=== PATIENT | female | born 1935 | race Caucasian/White ===

== ENCOUNTER 2016-10-18 08:30 | Inpatient (IN) | payer OTHER, MEDICARE ==
[~2016-10-18] VITALS: Ht 160 cm; Wt 69.4 kg
[~2016-10-18 08:30] MED LIST: ACET325T96 PO; ASPI81TA28 PO; BUME1TAB42 PO; CARB25TA12 PO; CHOL1000 PO; DIGO0.1219 PO; METO1TAB31 PO; MULT-190 PO; NTRGSL/4 UT; NYST100098 TOP; PANT40TA PO; REDCAP2 PO; WARF2TAB PO
[2016-10-18] MEDS ORDERED: FENTANYL CITRATE INJ 50 MCG/1 ML 2 ML VIAL IV STA (08:47)
[2016-10-18 09:16] LABS: BASO % 0.3 %; BASO ABS # 0.02 K/uL (0-0.2); EOS % 1.3 %; HEMATOCRIT 41.6 % (37-47); IG% 1.1 %; LYMPH % 16.4 %; LYMPH ABS # 1.23 K/uL (1.2-3.4); MEAN CELL VOLUME 94.1 fL (80-100); MEAN CORPUSCULAR HGB CONC 35.1 g/dl (32-36); MEAN PLATELET VOLUME 11.2 fL (7.4-10.4); MONO % 8.9 %; PLATELET COUNT 219 K/uL (130-400); RED BLOOD COUNT 4.42 M/uL (4.2-5.4); WHITE BLOOD COUNT 7.52 K/uL (4.8-10.8)
[2016-10-18] MEDS ORDERED: LNX125 PO (09:31)
[2016-10-18] MEDS ORDERED: NYST1POW7 (09:31)
--- NOTE | 2016-10-18 09:31 | EMERGENCY ROOM VISIT NOTE ---
ED Visit Note First contact with patient: 08:40 I have seen and examined this patient with Zamzam Rodríguez and generally agree with the treatment plan as discussed. Problem List Medical Problems: (1) Parkinson's disease Status: Chronic (2) Systemic lupus erythematosus Status: Chronic Surgical Problems: (1) History of cholecystectomy Status: Resolved Current/Historical Medications Scheduled Aspirin (Aspirin Ec), 162 MG PO DAILY Bumetanide (Bumex), 0.5 MG PO QAM Carbidopa/Levodopa (Sinemet 25MG/100MG), 2 TAB PO QID Cholecalciferol (Vitamin D3), 1,000 INTER.UNIT PO DAILY Digoxin (Digox), 0.125 MG PO QPM Metoprolol Succinate (Toprol Xl), 25 MG PO DAILY Nitroglycerin (Nitrostat), 0.4 MG UT PRN Ocuvite Preservision (Ocuvite Preservision), 1 TAB PO BID Pantoprazole (Protonix), 40 MG PO DAILY Red Yeast Rice Extract (Red Yeast Rice), 600 MG PO DAILY Warfarin Sodium (Coumadin), 2 MG PO DAILY Scheduled PRN Acetaminophen Tab (Tylenol), 650 MG PO Q4 PRN for Pain Nystatin (Mycostatin), 1 APPLN TOP BID PRN for rash Allergies Coded Allergies: Azathioprine (Verified Allergy, Unknown, gi upset, 10/18/16) gmg Furosemide (Verified Allergy, Unknown, joint pain,H/A, 10/18/16) gmg HMG-CoA-R Inhibitors (Verified Allergy, Unknown, _, 10/18/16) Ibandronic Acid (Verified Allergy, Unknown, bleeding, 10/18/16) gmg Statins (Verified Allergy, Unknown, unknown, 10/18/16) gmg Ursodiol (Verified Adverse Reaction, Unknown, emesis, 10/18/16) gmg Vital Signs Date Time Temp Pulse Resp B/P Pulse Ox O2 Delivery O2 Flow Rate FiO2 10/18/16 09:09 72 18 152/83 98 Room Air 10/18/16 08:47 36.4 80 20 175/94 95 Room Air Laboratory Results 10/18/16 09:04 Red Blood Count 4.42, Mean Corpuscular Volume 94.1, Mean Corpuscular Hemoglobin 33.0, Mean Corpuscular Hemoglobin Concent 35.1, Mean Platelet Volume 11.2, Neutrophils (%) (Auto) 72.0, Lymphocytes (%) (Auto) 16.4, Monocytes (%) (Auto) 8.9, Eosinophils (%) (Auto) 1.3, Basophils (%) (Auto) 0.3, Neutrophils # (Auto) 5.42, Lymphocytes # (Auto) 1.23, Monocytes # (Auto) 0.67, Eosinophils # (Auto) 0.10, Basophils # (Auto) 0.02 Test 10/18/16 09:04 White Blood Count 7.52 K/uL (4.8-10.8) Red Blood Count 4.42 M/uL (4.2-5.4) Hemoglobin 14.6 g/dL (12.0-16.0) Hematocrit 41.6 % (37-47) Mean Corpuscular Volume 94.1 fL (80-100) Mean Corpuscular Hemoglobin 33.0 pg (25-34) Mean Corpuscular Hemoglobin Concent 35.1 g/dl (32-36) Platelet Count 219 K/uL (130-400) Mean Platelet Volume 11.2 fL (7.4-10.4) Neutrophils (%) (Auto) 72.0 % Lymphocytes (%) (Auto) 16.4 % Monocytes (%) (Auto) 8.9 % Eosinophils (%) (Auto) 1.3 % Basophils (%) (Auto) 0.3 % Neutrophils # (Auto) 5.42 K/uL (1.4-6.5) Lymphocytes # (Auto) 1.23 K/uL (1.2-3.4) Monocytes # (Auto) 0.67 K/uL (0.11-0.59) Eosinophils # (Auto) 0.10 K/uL (0-0.5) Basophils # (Auto) 0.02 K/uL (0-0.2) RDW Standard Deviation 44.4 fL (36.4-46.3) RDW Coefficient of Variation 12.8 % (11.5-14.5) Immature Granulocyte % (Auto) 1.1 % Immature Granulocyte # (Auto) 0.08 K/uL (0.00-0.02) Medications Administered Medications (Trade) Dose Ordered Sig/Christine Route Start Time Stop Time Status Last Admin Dose Admin Fentanyl Citrate (Fentanyl Inj) 50 mcg NOW STAT IV 10/18/16 08:47 10/18/16 08:49 DC 10/18/16 09:09 50 [facility] [place] Information Referrals Sangeeta Medellin D.O. (PCP) Patient Instructions [facility]
[2016-10-18 09:35] LABS: BUN/CREATININE RATIO 19.5 (10-20); CALCIUM 9.3 mg/dl (8.5-10.1); CREATININE 0.86 mg/dl (0.60-1.20); POTASSIUM 3.7 mmol/L (3.5-5.1)
[2016-10-18 09:38] LABS: ALB/GLOB RATIO 0.8 (0.9-2)
--- NOTE | 2016-10-18 09:46 | DIAGNOSTIC IMAGING REPORT ---
CHEST ONE VIEW PORTABLE CLINICAL HISTORY: fall COMPARISON STUDY: 05/22/2016 FINDINGS: The heart is at the upper limits of normal in size. There is interstitial thickening, similar to the prior study given the differences in technique. There is no lobar consolidation. There are no pleural effusions. No pneumothorax is visualized.[ IMPRESSION: Chronic interstitial thickening. No evidence of lobar consolidation. No evidence of pneumothorax on this supine study Electronically signed by: Jose Francisco Ozuna M.D. 10/18/2016 9:45 AM Dictated Date/Time: 10/18/2016 9:43 AM
[2016-10-18 09:48] LABS: ANISOCYTOSIS PRESENT; COMPLETE YES; LARGE PLATELETS 1+
--- NOTE | 2016-10-18 09:49 | DIAGNOSTIC IMAGING REPORT ---
PELVIS 1 OR 2 VIEW ROUTINE, RIGHT FEMUR 2 VIEWS ROUTINE CLINICAL HISTORY: fall, right leg pain COMPARISON STUDY: Pelvis 07/05/2016. FINDINGS: There is a slightly comminuted intertrochanteric fracture within the right proximal femur. This demonstrates mild superior displacement. No dislocation. The visualized pelvic bones and left hip are intact. The bones are osteopenic. No fractures identified within the mid to distal right femur. IMPRESSION: Right intertrochanteric hip fracture Electronically signed by: Marcin Street M.D. 10/18/2016 9:47 AM Dictated Date/Time: 10/18/2016 9:44 AM
--- NOTE | 2016-10-18 09:49 | DIAGNOSTIC IMAGING REPORT ---
RIGHT KNEE 3 VIEWS CLINICAL HISTORY: Right knee pain status post trauma COMPARISON: 07/05/2016 DISCUSSION: The bones are osteopenic. There is chondrocalcinosis. Gastric calcifications are evident. There are degenerative changes most pronounced within the patellofemoral joint. There is fragmentation the superior patellar pole unchanged the prior study. IMPRESSION: 1. Osteopenia and degenerative change 2. No acute fractures 3. Chondrocalcinosis Electronically signed by: Jose Francisco Ozuna M.D. 10/18/2016 9:47 AM Dictated Date/Time: 10/18/2016 9:46 AM
[2016-10-18] MEDS ORDERED: CARBIDOPA/LEVODOPA 25/100MG TAB PO STA (09:58)
[2016-10-18] MEDS ORDERED: AMANTADINE HCL 100 MG CAP PO STA (09:58)
[2016-10-18 10:30] VITALS: O2SAT 98; Ht 160 cm; Wt 69.4 kg
[2016-10-18] MEDS ORDERED: MoRPHine SULFATE 4 MG/ML 1 ML CARP\\VIAL IV STA (11:09)
[2016-10-18] MEDS ORDERED: ALUMINUM/MAGNESIUM/SIMETH (MAALOX MAX) 30 ML UDC PO PRN (11:45)
[2016-10-18] MEDS ORDERED: ACETAMINOPHEN 325 MG TAB PO PRN ×2 (11:45→17:45)
[2016-10-18] MEDS ORDERED: POLYETHYLENE (MIRALAX) 17 GM PACK PO PRN (11:45)
[2016-10-18] MEDS ORDERED: ZOLPIDEM TARTRATE 5 MG TAB PO PRN (11:45)
[2016-10-18] MEDS ORDERED: MAGNESIUM HYDROXIDE SUSP 30 ML UDC PO PRN (11:45)
[2016-10-18] MEDS ORDERED: ONDANSETRON INJ 2 MG/ML 2 ML VIAL IV PRN (11:45)
[2016-10-18 11:46] LABS: PARTIAL THROMBOPLASTIN RATIO 1.3; PROTHROMBIN TIME (PATIENT) 22.5 SECONDS (9.0-12.0)
[2016-10-18 12:35] VITALS: BP 107/69; PULSE 82; TEMP 36.5
[2016-10-18] MEDS ORDERED: MoRPHine SULFATE 2 MG/ML CARP IV PRN (13:15)
[2016-10-18] MEDS ORDERED: NURSING VERBAL MED ORDER ONE (13:15)
[2016-10-18] MEDS ORDERED: PHYTONADIONE INJ 10 MG in SODIUM CHLORIDE 0.9% 50ML 50 ML IV ONE (13:45)
[2016-10-18 14:05] LABS: URINE APPEARANCE TURBID (CLEAR); URINE BILIRUBIN NEG (NEG); URINE COLOR DK YELLOW; URINE EPITHELIAL CELL AUTO >30 /lpf (0-5); URINE NITRITE NEG (NEG); URINE PH 8.5 (4.5-7.5); URINE SPECIFIC GRAVITY 1.014 (1.000-1.030); UROBILINOGEN NEG (NEG); ZZUR CULT IF INDIC CLEAN CATCH NO
[2016-10-18 14:24] LABS: MANUAL MICROSCOPIC REQUIRED? NO; REVIEW REQ? YES; SULFASALICYLIC ACID NEG (NEG)
[2016-10-18] MEDS ORDERED: HYDROCODONE/ACETAMOPHEN 5/325MG TAB PO PRN (15:15)
[2016-10-18] MEDS ORDERED: DIGOXIN 0.125 MG TAB PO SCH (16:00)
--- NOTE | 2016-10-18 16:30 | CONSULTATION REPORT ---
DATE OF CONSULTATION: 10/18/2016 REASON FOR CONSULT: Right hip fracture. HISTORY OF PRESENT ILLNESS: The patient is an 80-year-old white female who apparently today was stooping over to reach for one of her slippers where she lost her balance and fell to the floor. She fell on her right side and had immediate pain in her hip and groin. She was unable to get up and ambulate on her own and she was brought to the Emergency Room to be seen by the staff there. She denies loss of consciousness. She denies hitting her head. She had no shortness of breath, chest pain or lightheadedness prior to or after the fall. She was seen by the staff. X-rays were taken and it was found that she had an intertrochanteric hip fracture of the right hip and she was admitted under the medicine service and we have been consulted to take care of her hip fracture. PAST MEDICAL HISTORY: Hypertension, atrial fibrillation on chronic Coumadin, history of CHF, hypercholesterolemia, osteoarthritis, vitamin D deficiency, Parkinson's disease, systemic lupus. PAST SURGICAL HISTORY: Cholecystectomy. FAMILY HISTORY: As per admitting history and physical. SOCIAL HISTORY: As per admitting history and physical. MEDICATIONS: Aspirin 162 mg p.o. daily, Bumex 0.5 mg p.o. q.a.m., carbidopa/levodopa 25/100 two tabs p.o. q.i.d., vitamin D3 1000 international units p.o. daily, digoxin 0.125 mg p.o. q.p.m., metoprolol XL 25 mg p.o. daily, nitroglycerin 0.4 mg under tongue p.r.n., Ocuvite PreserVision 1 tab p.o. b.i.d., pantoprazole 40 mg p.o. daily, red yeast rice 600 mg p.o. daily and warfarin 2 mg p.o. daily, Tylenol 650 mg p.o. q. 4 p.r.n. daily and nystatin 1 application topically b.i.d. p.r.n. for rash. ALLERGIES: AZATHIOPRINE, FUROSEMIDE, HMG-COA-R INHIBITORS, IBANDRONIC ACID, STATINS, URSODIOL. REVIEW OF SYSTEMS: As per admitting history and physical. PHYSICAL EXAMINATION: GENERAL: On examination of the patient, she is lying in bed and appears to be in no acute distress. She is pleasant and cooperative. She is alert and oriented to person and place. SKIN: Warm and dry. EXTREMITIES: On examination of her right lower extremity, she has full extension of the hip at this time and has some mild swelling over the proximal thigh that is tender on palpation. No active and passive range of motion attempted at this time due to hip fracture of the right hip and over the right knee. She is moving her toes and her ankle on the right foot. She has good sensation of the right foot at this time. The right lower extremity appears somewhat shortened and externally rotated compared to the left. Left lower extremity is essentially within normal limits as far as range of motion. She is nontender on palpation of the knee, ankle, and foot at this time. A gentle pelvic rock elicits no painful response in the upper pelvis, but she does have some pain over the lateral hip with motion on the right side. Upper extremities, she is mildly tender over the right shoulder at this time but not at the elbow or wrist. Range of motion is mildly limited at this time in the right shoulder compared to the left. Left shoulder has much better range of motion with minimal discomfort. Left elbow and wrist are benign. 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 Distal pulses are equal bilaterally of the upper and lower extremities. NEUROLOGICAL: The patient is alert and oriented to person and place. Sensation is intact. DIAGNOSIS: Right intertrochanteric hip fracture. PLAN: Currently, the patient is on Coumadin and her INR is 2.0. Depending if she needs a general or spinal anesthesia will depend on the level, the INR needs to be dropped; if spinal, then less than 1.5. Cardiology has been consulted and is seeing the patient at this time. The patient will likely undergo a right trochanteric femoral nailing for this type of fracture. Once she has been cleared by medicine service and cardiology service, we will plan on taking her to the operating room to fix her right hip.
--- NOTE | 2016-10-18 16:47 | EMERGENCY ROOM VISIT NOTE ---
History First contact with patient: 08:40 Chief Complaint: FALL Stated Complaint: HIP FRACTURE History of Present Illness The patient is a 80 year old female who presents to the Emergency Room via ALS after a fall. The patient reports that she bent over to put her slippers on, but she was not using her walker and she fell, landing on her right leg. The patient does have a history of Parkinson's and has balance issues at baseline. She reports she also has a history of arthritis and lupus. She takes chronic anticoagulation for a blood clot. The patient complains of pain in the right hip radiating down past the right knee. She rates her discomfort an 8/10. She is not been able to walk since the injury. She denies any numbness or weakness. She denies hitting her head when she fell. The fall was not associated with any dizziness or lightheadedness. She denies any other injuries. Review of Systems A complete 10-point Review of Systems was discussed with the patient, with pertinent positives and negatives listed in the History of Present Illness. All remaining Review of Systems questions can be considered negative unless otherwise specified. Past Medical/Surgical History Medical Problems: (1) Hip fracture (2) hip fracture (3) Parkinson's disease (4) Systemic lupus erythematosus Surgical Problems: (1) History of cholecystectomy Family History Heart disease Social History Smoking Status: Never Smoker Alcohol Use: none Drug Use: none Housing Status: lives with family Occupation Status: retired Current/Historical Medications Scheduled Aspirin (Aspirin Ec), 162 MG PO DAILY Bumetanide (Bumex), 0.5 MG PO QAM Carbidopa/Levodopa (Sinemet 25MG/100MG), 1 TAB PO QID Digoxin (Digoxin), 0.125 MG PO DAILY Metoprolol Succinate (Toprol Xl), 25 MG PO DAILY Nitroglycerin (Nitrostat), 0.4 MG UT PRN Pantoprazole (Protonix), 40 MG PO DAILY Warfarin Sodium (Coumadin), 2 MG PO DAILY Scheduled PRN Acetaminophen Tab (Tylenol), 650 MG PO Q4 PRN for Pain Miscellaneous Medications Nystatin (Topical) (Nystatin) Allergies Coded Allergies: Azathioprine (Verified Allergy, Unknown, gi upset, 10/18/16) gmg Furosemide (Verified Allergy, Unknown, joint pain,H/A, 10/18/16) gmg HMG-CoA-R Inhibitors (Verified Allergy, Unknown, _, 10/18/16) Ibandronic Acid (Verified Allergy, Unknown, bleeding, 10/18/16) gmg Statins (Verified Allergy, Unknown, unknown, 10/18/16) gmg Ursodiol (Verified Adverse Reaction, Unknown, emesis, 10/18/16) gmg Physical Exam Vital Signs Date Time Temp Pulse Resp B/P Pulse Ox O2 Delivery O2 Flow Rate FiO2 10/18/16 11:14 90 20 133/60 98 Room Air 10/18/16 10:30 98 Room Air 10/18/16 10:16 89 19 140/96 98 Room Air 10/18/16 09:09 72 18 152/83 98 Room Air 10/18/16 08:47 36.4 80 20 175/94 95 Room Air Pain Rating (0-10): 0 Physical Exam VITALS: Vitals are noted on the nurse's note and reviewed by myself. Vital signs stable. GENERAL: This is an 80-year-old female, in no acute distress, nondiaphoretic, well-developed well-nourished. SKIN: Capillary reflex less than 2 seconds. HEENT: Normocephalic. PERRLA. EOMI. Nares patent. Mucous membranes moist. Neck is supple without nuchal rigidity. HEART: Regular rate and rhythm without murmurs gallops or rubs. LUNGS: Clear to auscultation bilaterally without wheezes, rales or rhonchi. ABDOMEN: Soft, nontender. MUSCULOSKELETAL: There is tenderness to palpation over the right hip and femur. The right lower extremity is slightly shortened and internally rotated compared to the left. Dorsalis pedis pulse is intact. NEURO: Patient was alert and oriented to person place and time. Normal sensation to light and sharp touch. Deep tendon reflexes 2+ throughout. No focal neurological deficits. Medical Decision & Procedures ER Provider Diagnostic Interpretation: PELVIS 1 OR 2 VIEW ROUTINE, RIGHT FEMUR 2 VIEWS ROUTINE FINDINGS: There is a slightly comminuted intertrochanteric fracture within the right proximal femur. This demonstrates mild superior displacement. No dislocation. The visualized pelvic bones and left hip are intact. The bones are osteopenic. No fractures identified within the mid to distal right femur. IMPRESSION: Right intertrochanteric hip fracture RIGHT KNEE 3 VIEWS DISCUSSION: The bones are osteopenic. There is chondrocalcinosis. Gastric calcifications are evident. There are degenerative changes most pronounced within the patellofemoral joint. There is fragmentation the superior patellar pole unchanged the prior study. IMPRESSION: 1. Osteopenia and degenerative change 2. No acute fractures 3. Chondrocalcinosis CHEST ONE VIEW PORTABLE FINDINGS: The heart is at the upper limits of normal in size. There is interstitial thickening, similar to the prior study given the differences in technique. There is no lobar consolidation. There are no pleural effusions. No pneumothorax is visualized.[ IMPRESSION: Chronic interstitial thickening. No evidence of lobar consolidation. No evidence of pneumothorax on this supine study Laboratory Results 10/18/16 09:04 Red Blood Count 4.42, Mean Corpuscular Volume 94.1, Mean Corpuscular Hemoglobin 33.0, Mean Corpuscular Hemoglobin Concent 35.1, Mean Platelet Volume 11.2, Neutrophils (%) (Auto) 72.0, Lymphocytes (%) (Auto) 16.4, Monocytes (%) (Auto) 8.9, Eosinophils (%) (Auto) 1.3, Basophils (%) (Auto) 0.3, Neutrophils # (Auto) 5.42, Lymphocytes # (Auto) 1.23, Monocytes # (Auto) 0.67, Eosinophils # (Auto) 0.10, Basophils # (Auto) 0.02 10/18/16 09:04 Test 10/18/16 09:04 White Blood Count 7.52 K/uL (4.8-10.8) Red Blood Count 4.42 M/uL (4.2-5.4) Hemoglobin 14.6 g/dL (12.0-16.0) Hematocrit 41.6 % (37-47) Mean Corpuscular Volume 94.1 fL (80-100) Mean Corpuscular Hemoglobin 33.0 pg (25-34) Mean Corpuscular Hemoglobin Concent 35.1 g/dl (32-36) Platelet Count 219 K/uL (130-400) Mean Platelet Volume 11.2 fL (7.4-10.4) Neutrophils (%) (Auto) 72.0 % Lymphocytes (%) (Auto) 16.4 % Monocytes (%) (Auto) 8.9 % Eosinophils (%) (Auto) 1.3 % Basophils (%) (Auto) 0.3 % Neutrophils # (Auto) 5.42 K/uL (1.4-6.5) Lymphocytes # (Auto) 1.23 K/uL (1.2-3.4) Monocytes # (Auto) 0.67 K/uL (0.11-0.59) Eosinophils # (Auto) 0.10 K/uL (0-0.5) Basophils # (Auto) 0.02 K/uL (0-0.2) RDW Standard Deviation 44.4 fL (36.4-46.3) RDW Coefficient of Variation 12.8 % (11.5-14.5) Immature Granulocyte % (Auto) 1.1 % Immature Granulocyte # (Auto) 0.08 K/uL (0.00-0.02) Large Platelets 1+ Anisocytosis PRESENT Prothrombin Time 22.5 SECONDS (9.0-12.0) Prothromb Time International Ratio 2.0 (0.9-1.1) Activated Partial Thromboplast Time 34.4 SECONDS (21.0-31.0) Partial Thromboplastin Ratio 1.3 Anion Gap 11.0 mmol/L (3-11) Est Creatinine Clear Calc Drug Dose 48.8 ml/min Estimated GFR () 73.9 Estimated GFR (Non- 63.8 BUN/Creatinine Ratio 19.5 (10-20) Calcium Level 9.3 mg/dl (8.5-10.1) Total Bilirubin 0.9 mg/dl (0.2-1) Aspartate Amino Transf (AST/SGOT) 35 U/L (15-37) Alanine Aminotransferase (ALT/SGPT) 11 U/L (12-78) Alkaline Phosphatase 132 U/L (45-117) Total Protein 7.5 gm/dl (6.4-8.2) Albumin 3.3 gm/dl (3.4-5.0) Globulin 4.2 gm/dl (2.5-4.0) Albumin/Globulin Ratio 0.8 (0.9-2) Medications Administered Medications (Trade) Dose Ordered Sig/Christine Route Start Time Stop Time Status Last Admin Dose Admin Fentanyl Citrate (Fentanyl Inj) 50 mcg NOW STAT IV 10/18/16 08:47 10/18/16 08:49 DC 10/18/16 09:09 50 MCG Carbidopa/Levodopa (Sinemet 25/ 100MG Tab) 1.5 tab NOW STAT PO 10/18/16 09:58 10/18/16 10:00 DC 10/18/16 10:16 1.5 TAB Amantadine HCl (Symmetrel Cap) 100 mg NOW STAT PO 10/18/16 09:58 10/18/16 10:00 DC 10/18/16 10:16 100 MG Morphine Sulfate (MoRPHine SULFATE INJ) 4 mg NOW STAT IV 10/18/16 11:09 10/18/16 11:11 DC 10/18/16 11:14 4 MG Medical Decision Differential diagnosis includes hip fracture, dislocation, contusion, among others. The patient was evaluated as above. Labs were drawn and IV access was obtained. Imaging studies were performed and read by radiology as above. The patient was medicated with 50 g. Fentanyl IV for pain. She had little relief and was then medicated with formula grams morphine IV. The patient was reassessed multiple times during their stay in the emergency department and remained in stable condition. The patient is an 80-year-old female who presents today complaining of right hip pain after a fall. X-rays showed a right hip fracture. Labs and preop studies were ordered. Case was discussed with Brenton Goncalves, PAC of [facility], who agreed to evaluate the patient. The case was discussed with Dr. Escobar, the [facility] hospitalist, who agreed to evaluate the patient for medical admission. The patient was also evaluated by Dr. Poe, ED attending physician, who agreed with my assessment and treatment plan. Impression Primary Impression: Closed right hip fracture Departure Information Dispostion Admitted as an inpatient Condition FAIR Referrals Sangeeta Medellin D.O. (PCP) Forms HOME CARE DOCUMENTATION FORM, IMPORTANT VISIT INFORMATION Patient Instructions [facility]
--- NOTE | 2016-10-18 17:33 | History and Physical ---
History & Physical Date & Time of Service: Oct 18, 2016 at 17:24 Chief Complaint: Hip Fracture Primary Care Physician: Sangeeta Medellin D.O. History of Present Illness Source: patient, family 80 years old female with Hx of parkinsonism uses a walker for ambulation, A fib on Coumadin, SLE, HTN and remote Hx of DVT 30 years ago (coumadin is for A fib started few years ago). she was in her regular state of health until today. she was trying to put her slippers on and had a mechanical fall. she did not hit her head, she did not have any dizziness or loss of consciousness. She uses a walker for ambulation, can walk for a block without any chest pain. Past Medical/Surgical History Medical Problems: (1) Parkinson's disease Status: Chronic (2) Systemic lupus erythematosus Status: Chronic Surgical Problems: (1) History of cholecystectomy Status: Resolved Family History Heart disease Social History Smoking Status: Never Smoker Drug Use: none Occupational Status: retired Immunizations History of Influenza Vaccine: Yes History of Tetanus Vaccine?: UTD History of Pneumococcal: Yes History of Hepatitis B Vaccine: No Multi-Drug Resistant Organisms History of MDRO: No Allergies Coded Allergies: Azathioprine (Verified Allergy, Unknown, gi upset, 10/18/16) gmg Furosemide (Verified Allergy, Unknown, joint pain,H/A, 10/18/16) gmg HMG-CoA-R Inhibitors (Verified Allergy, Unknown, _, 10/18/16) Ibandronic Acid (Verified Allergy, Unknown, bleeding, 10/18/16) gmg Statins (Verified Allergy, Unknown, unknown, 10/18/16) gmg Ursodiol (Verified Adverse Reaction, Unknown, emesis, 10/18/16) gmg Home Medications Scheduled Aspirin (Aspirin Ec), 162 MG PO DAILY Bumetanide (Bumex), 0.5 MG PO QAM Carbidopa/Levodopa (Sinemet 25MG/100MG), 1 TAB PO QID Digoxin (Digoxin), 0.125 MG PO DAILY Metoprolol Succinate (Toprol Xl), 25 MG PO DAILY Nitroglycerin (Nitrostat), 0.4 MG UT PRN Pantoprazole (Protonix), 40 MG PO DAILY Warfarin Sodium (Coumadin), 2 MG PO DAILY Scheduled PRN Acetaminophen Tab (Tylenol), 650 MG PO Q4 PRN for Pain Miscellaneous Medications Nystatin (Topical) (Nystatin) Review of Systems Constitutional: No chills, No fever Eyes: No worsening of vision ENT: No hearing loss, No unusual epistaxis Respiratory: No cough, No shortness of breath, No sputum, No wheezing Cardiovascular: No PND, No chest pain, No edema, No orthopnea Abdomen: No diarrhea, No nausea, No pain, No vomiting Musculoskeletal: No joint pain Genitourinary - Female: No dysuria, No hematuria Neurologic: No memory loss, No paralysis, No weakness Psychiatric: No depression symptoms Endocrine: No fatigue Hematologic / Lymphatic: No abnormal bleeding/bruising Integumentary: No rash Physical Exam Vital Signs Date Time Temp Pulse Resp B/P Pulse Ox O2 Delivery O2 Flow Rate FiO2 10/18/16 15:20 Room Air 10/18/16 12:35 Room Air 10/18/16 12:35 36.5 82 20 107/69 Room Air 10/18/16 12:00 90 20 133/60 98 10/18/16 11:14 90 20 133/60 98 Room Air 10/18/16 10:30 98 Room Air 10/18/16 10:16 89 19 140/96 98 Room Air 10/18/16 09:09 72 18 152/83 98 Room Air 10/18/16 08:47 36.4 80 20 175/94 95 Room Air General Appearance: WD/WN, no apparent distress Head: normocephalic, atraumatic Eyes: normal inspection, PERRL, EOMI ENT: normal ENT inspection, hearing grossly normal Neck: supple Respiratory/Chest: chest non-tender, lungs clear, normal breath sounds, no respiratory distress, no accessory muscle use Cardiovascular: no edema, no gallop, no JVD, no murmur, + irregularly irregular Abdomen/GI: normal bowel sounds, non tender, soft, no organomegaly, no pulsatile mass, normal rectal exam Back: normal inspection, + pertinent finding (Right pelvic deformity) Extremities/Musculoskelatal: normal inspection, no calf tenderness, normal capillary refill Neurologic/Psych: 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, no motor/sensory deficits, alert, normal mood/affect, normal reflexes, oriented x 3 Skin: normal color, warm/dry, no rash Diagnostics Laboratory Results Results Past 24 Hours Test 10/18/16 09:04 10/18/16 13:25 Range/Units White Blood Count 7.52 4.8-10.8 K/uL Red Blood Count 4.42 4.2-5.4 M/uL Hemoglobin 14.6 12.0-16.0 g/dL Hematocrit 41.6 37-47 % Mean Corpuscular Volume 94.1 80-100 fL Mean Corpuscular Hemoglobin 33.0 25-34 pg Mean Corpuscular Hemoglobin Concent 35.1 32-36 g/dl Platelet Count 219 130-400 K/uL Mean Platelet Volume 11.2 7.4-10.4 fL Neutrophils (%) (Auto) 72.0 % Lymphocytes (%) (Auto) 16.4 % Monocytes (%) (Auto) 8.9 % Eosinophils (%) (Auto) 1.3 % Basophils (%) (Auto) 0.3 % Neutrophils # (Auto) 5.42 1.4-6.5 K/uL Lymphocytes # (Auto) 1.23 1.2-3.4 K/uL Monocytes # (Auto) 0.67 0.11-0.59 K/uL Eosinophils # (Auto) 0.10 0-0.5 K/uL Basophils # (Auto) 0.02 0-0.2 K/uL RDW Standard Deviation 44.4 36.4-46.3 fL RDW Coefficient of Variation 12.8 11.5-14.5 % Immature Granulocyte % (Auto) 1.1 % Immature Granulocyte # (Auto) 0.08 0.00-0.02 K/uL Large Platelets 1+ Anisocytosis PRESENT Prothrombin Time 22.5 9.0-12.0 SECONDS Prothromb Time International Ratio 2.0 0.9-1.1 Activated Partial Thromboplast Time 34.4 21.0-31.0 SECONDS Partial Thromboplastin Ratio 1.3 Sodium Level 138 136-145 mmol/L Potassium Level 3.7 3.5-5.1 mmol/L Chloride Level 99 98-107 mmol/L Carbon Dioxide Level 28 21-32 mmol/L Anion Gap 11.0 3-11 mmol/L Blood Urea Nitrogen 17 7-18 mg/dl Creatinine 0.86 0.60-1.20 mg/dl Est Creatinine Clear Calc Drug Dose 48.8 ml/min Estimated GFR () 73.9 Estimated GFR (Non- 63.8 BUN/Creatinine Ratio 19.5 10-20 Random Glucose 120 70-99 mg/dl Calcium Level 9.3 8.5-10.1 mg/dl Total Bilirubin 0.9 0.2-1 mg/dl Aspartate Amino Transf (AST/SGOT) 35 15-37 U/L Alanine Aminotransferase (ALT/SGPT) 11 12-78 U/L Alkaline Phosphatase 132 45-117 U/L Total Protein 7.5 6.4-8.2 gm/dl Albumin 3.3 3.4-5.0 gm/dl Globulin 4.2 2.5-4.0 gm/dl Albumin/Globulin Ratio 0.8 0.9-2 Urine Color DK YELLOW Urine Appearance TURBID CLEAR Urine pH 8.5 4.5-7.5 Urine Specific Mck[place]on 1.014 1.000-1.030 Urine Protein NEG NEG Urine Glucose (UA) NEG NEG Urine Ketones TRACE NEG Urine Occult Blood 1+ NEG Urine Nitrite NEG NEG Urine Bilirubin NEG NEG Urine Urobilinogen NEG NEG Urine Leukocyte Esterase TRACE NEG Urine WBC (Auto) 1-5 0-5 /hpf Urine RBC (Auto) 10-30 0-4 /hpf Urine Hyaline Casts (Auto) >30 0-5 /lpf Urine Epithelial Cells (Auto) >30 0-5 /lpf Urine Bacteria (Auto) NEG NEG Urine Renal Epithelial Cells 0-5 /lpf Urine Crystals AMORPHOUS SEDIMENT NONE PRSENT Urine Pathogenic Casts 0 /lpf CXR normal Impression Assessment and Plan 80 years old lady with parkinsonism sustained a mechanical fall. Right intertrochanteric hip fracture. medically cleared for hip replacement after correction of INR Orthopedic consult is appreciated A fib on coumadin INR is 2 given 10mg of vit K IV repeat INR in am HTN continue B carey Parkinsonis continue home meds SLE continue home meds Remote Hx of DVT 30 years ago (was on coumadin for 6 months at that time as per patient) Full code Advanced Directives Existing Advance Directive: No Existing Living Will: No Existing Power of House Furnishings Supervisor: No VTE Prophylaxis VTE Risk Assessment Done? Y/N: Yes Risk Level: Moderate
[2016-10-18] MEDS ORDERED: NITROGLYCERIN 0.4 MG SL PER TAB CHARGE UT PRN (17:45)
[2016-10-18] MEDS: MoRPHine SULFATE 2 MG/ML CARP IV PRN ×2 (18:11→21:09)
[2016-10-18] MEDS: D5W AND NSS 1,000 ML IV SCH (18:25)
--- NOTE | 2016-10-18 18:31 | CARDIOLOGY CONSULTATION REPORT ---
DATE OF CONSULTATION: 10/18/2016 REASON FOR CONSULTATION: 1. Preoperative cardiac evaluation prior to undergoing fracture hip repair. 2. Chronic atrial fibrillation. 3. History of diastolic CHF. HISTORY OF PRESENT ILLNESS: Mrs. Maxwell is a very pleasant 80-year-old white female who has a history of longstanding Parkinson's disease, systemic lupus erythematosus, autoimmune cirrhosis, hypertension, moderate concentric LVH with type 2 diastolic dysfunction as well as chronic atrial fibrillation (rate controlled on Coumadin) who was admitted earlier today after a fall, which resulted in a right hip intertrochanteric fracture. Anticipate surgical repair tomorrow with [facility] team. The patient has a longstanding history of atrial fibrillation with well controlled ventricular response rate and she is maintained on chronic Coumadin anticoagulation. She does have a history of diastolic CHF dating back to October 2014 when she presented with AFib with RVR and heart failure symptoms. With controlling her heart rate, her heart failure symptoms improved dramatically. The patient has limited her activities because of Parkinson's disease. She generally ambulates back and forth in her hallways at home but does not climb any stairs, walk up any grades or carry any objects when she walks. She denies any limiting cardiopulmonary symptoms. She specifically denies any exertional chest pain, heaviness, tightness, or pressure. No exertional neck, jaw, back, or arm pain. She denies any shortness of breath, unusual dyspnea on exertion, or any recent decrease in exertional tolerance. She further denies any orthopnea, PND, palpitations, syncope, or near syncope. She did not have any lightheadedness associated with her fall earlier today. She was sitting at a chair and leaned over forward to pick something up when she fell out of the chair. MEDICATIONS: (As an outpatient) 1. Toprol-XL 25 mg daily. 2. Aspirin 81 mg daily. 3. Digoxin 0.125 mg daily. 4. Bumex 0.5 mg daily. 5. Sinemet 25/100 one tablet by mouth every 5 hours. 6. Protonix 40 mg a day. 7. Sublingual nitroglycerin. 8. Coumadin 2 mg daily. ALLERGIES: 1. AZATHIOPRINE. 2. FUROSEMIDE. 3. [id number] INHIBITORS. 4. IBANDRONIC ACID. 5. URSODIOL. CURRENT MEDICATIONS: 1. Morphine sulfate 2 mg IV q. 3 hours while awake as needed for severe pain. 2. Selma 5/325 one tablet every 4 hours as needed for pain. 3. Tylenol p.r.n. 4. Maalox Max p.r.n. 5. Milk of magnesia p.r.n. 6. MiraLax powder 17 g daily as needed. 7. Ambien 5 mg at bedtime p.r.n. for sleep. 8. Zofran 4 mg IV q. 6 hours p.r.n. for nausea. PAST MEDICAL HISTORY: 1. Chronic atrial fibrillation, rate controlled on Coumadin. 2. Systemic lupus erythematosus. 3. Autoimmune cirrhosis. 4. Parkinson's disease. 5. Longstanding hypertension. 6. Echocardiogram of 10/20/2014 shows an LVEF of 55%, moderate concentric LVH with type 2 diastolic dysfunction, aortic valve sclerosis without stenosis, mild MR, moderate mitral annular calcification, and mild pulmonic insufficiency. 7. She denies any history of CAD, myocardial infarction, or rheumatic fever. No history of stroke or mini stroke. SOCIAL HISTORY: The patient is , does not use alcohol or tobacco. FAMILY HISTORY: Noncontributory. PHYSICAL EXAMINATION: VITAL SIGNS: Temperature 36.5 degrees Celsius, pulse is 82 and irregularly irregular, respiratory rate is 16 and unlabored, blood pressure is 107/69, and SpO2 is 98% on room air. GENERAL: The patient is in no acute distress. HEENT: Head is atraumatic, normocephalic. EOMs intact. Sclerae are anicteric. Facies symmetric. No perioral cyanosis. Mucous membranes moist. NECK: Without thyromegaly, adenopathy or JVD. Jugular venous pressure is just above the clavicle. CHEST AND LUNGS: Clear to auscultation throughout all lung willett. No wheezes, rales or rhonchi. CARDIOVASCULAR: S1 and S2 are irregularly irregular at a rate of approximately 75-80 beats per minute, with a grade 1/6 basal systolic murmur which radiates towards the upper chest, also audible to left sternal border. No diastolic murmurs. No obvious gallops or rubs. PMI is not displaced. No lifts, heaves, or thrills. No abdominal aortic or renal bruits. ABDOMEN: Bowel sounds are present. No masses, organomegaly or tenderness. EXTREMITIES: Without clubbing, cyanosis, or edema. Intact posterior tibial and radial pulses bilaterally. NEUROLOGIC: The patient is awake, alert and oriented. Pleasant and cooperative. Answers questions appropriately. Speech is clear. General bradykinesia of bilateral upper extremities, no obvious tremor. DATA: EKG on admission shows atrial fibrillation with a controlled ventricular response rate of 75 beats per minute, ST-T-wave abnormality noted in the anterior leads. Nonspecific T-wave abnormality in the inferior leads as well. ASSESSMENT: 1. Right hip fracture. 2. Chronic Atrial Fibrillation, rate controlled on Coumadin. 3. Moderate concentric left ventricular hypertrophy with type 2 diastolic dysfunction. 4. Normal left ventricular systolic function. 5. Hypertension, controlled. 6. Parkinson's disease. 7. Systemic lupus erythematosus. 8. Autoimmune cirrhosis. 9. Aortic valve sclerosis without stenosis. 10. Mild mitral regurgitation. 11. Mild PI. 12. No anginal pectoris or anginal equivalent symptoms. 13. No signs or symptoms of heart failure. 14. No symptoms suggestive of stroke or mini stroke. PLAN: 1. The patient was admitted with a right hip fracture secondary to a fall. 2. Anticipate surgical repair of right hip intertrochanteric fracture tomorrow with [facility]. 3. Based on her modest levels of activity without limiting cardiopulmonary symptoms controlled ventricular response rate, normal LV systolic function, and the significantly increased mortality associated with unrepaired hip fractures -- patient is a low to intermediate surgical risk to proceed with surgery as scheduled. We recommend that she take her usual dose of Toprol-XL 25 mg as well as Digoxin 0.125 mg the morning of surgery with sips of water. 4. Coumadin is currently on hold. INR today is 2.0. 5. Continue Sinemet 25/100 one tablet every 5 hours. 6. Resume warfarin postoperatively when okay with surgeon. 7. Resume Aspirin 81 mg daily postoperatively when okay with surgeon. 8. Resume Bumex 0.5 mg daily postoperatively when blood pressure/renal function allows. 9. DVT prophylaxis as per surgeon. 10. Physical therapy as per protocol. 11. We will continue to follow along while hospitalized. [facility] CENTERMike
--- NOTE | 2016-10-18 18:56 | Anesthesiology Progress Note ---
Pre-OP Anesthesia Assessment Date of Note Oct 18, 2016. Review patient information reviewed, chart reviewed, labs reviewed, acceptable for surgery Notes 80 yo female admitted with right hip fracture. PMH includes HTN, atrial fibrillation, hypercholesterolemia, CHF, Parkinson's, arthritis. Was on Coumadin, INR 2.0 today. She is awake, alert and oriented and VSS. I discussed with patient and her two children that surgery can proceed after improvement in coagulation as measured by INR. I described spinal vs general anesthesia and told them that spinal is often recommended for this surgery if INR will allow. This matter will be further discussed and decision made in consultation with anesthesiologist assigned to the case. They expressed understanding and signed informed consent.
[2016-10-18] MEDS: CARBIDOPA/LEVODOPA 25/100MG TAB PO SCH (21:07)
[2016-10-18 22:35] VITALS: BP 155/65; PULSE 86; TEMP 36.4; O2SAT 96
[2016-10-19] VITALS (7 sets, daily range): BP systolic 121–177; BP diastolic 67–83; PULSE 80–135; TEMP 37–37.1; O2SAT 93–95
[2016-10-19] MEDS: MoRPHine SULFATE 2 MG/ML CARP IV PRN ×4 (04:34→21:03)
[2016-10-19 06:26] LABS: BASO % 0.2 %; BASO ABS # 0.02 K/uL (0-0.2); COMPLETE YES; EOS % 0.3 %; HEMATOCRIT 39.8 % (37-47); IG% 0.2 %; LYMPH % 11.2 %; LYMPH ABS # 1.09 K/uL (1.2-3.4); MEAN CELL VOLUME 96.8 fL (80-100); MEAN CORPUSCULAR HEMOGLOBIN 33.3 pg (25-34); MEAN CORPUSCULAR HGB CONC 34.4 g/dl (32-36); MEAN PLATELET VOLUME 11.5 fL (7.4-10.4); MONO % 10.4 %; NEUT % 77.7 %; PLATELET COUNT 192 K/uL (130-400); RED BLOOD COUNT 4.11 M/uL (4.2-5.4); WHITE BLOOD COUNT 9.73 K/uL (4.8-10.8)
[2016-10-19] MEDS: D5W AND NSS 1,000 ML IV SCH ×2 (06:28→16:26)
[2016-10-19 06:40] LABS: INR 1.3 (0.9-1.1); PROTHROMBIN TIME (PATIENT) 14.5 SECONDS (9.0-12.0)
[2016-10-19 07:00] LABS: BUN/CREATININE RATIO 21.5 (10-20); CALCIUM 8.5 mg/dl (8.5-10.1); CREATININE 0.74 mg/dl (0.60-1.20); POTASSIUM 3.7 mmol/L (3.5-5.1)
[2016-10-19 07:07] LABS: ALB/GLOB RATIO 0.7 (0.9-2); PHOSPHORUS 2.1 mg/dl (2.5-4.9)
--- NOTE | 2016-10-19 07:22 | Clinical Documentation Query ---
CLINICAL DOCUMENTATION QUERY 80-y/o female whom fell from ground level and suffered a right intertrochanteric femur fracture. In your clinical opinion is this patient being managed for: ( x ) Osteoporotic fracture of right femur from ground level fall in elderly female. ( ) Other explanation of clinical findings (Please Explain) ( ) Unable to determine (Please Define) ( ) Need to Discuss ( ) Not Agree The medical record reflects the following clinical findings, treatment, and risk factors. Clinical Indicators: Right intertrochanteric hip fracture by Xray. Fall from ground level per ED questioning. Treatment: Orthopedic consult and planned surgical intervention Risk Factors: Age, sex, and long bone fracture that likely would not occured in healthy bone. Please clarify and document your clinical opinion in the progress notes and discharge summary. Terms such as "probable", "suspected", "likely", "questionable", "possible", or "still to be ruled out" are acceptable. IF IN AGREEMENT, YOU MUST DOCUMENT ABOVE DIAGNOSTIC STATEMENT IN DAILY PROGRESS NOTES AND DISCHARGE SUMMARY. This document is not part of the patient's record. Thank You, Blake Benitez, RICHA [phone]
[2016-10-19] MEDS: PANTOprazole SOD 40 MG TAB PO SCH (08:48)
[2016-10-19] MEDS: METOPROLOL SUCC 25MG EXT REL TAB PO SCH (08:49)
[2016-10-19] MEDS: CARBIDOPA/LEVODOPA 25/100MG TAB PO SCH ×4 (08:49→20:22)
[2016-10-19] MEDS ORDERED: METOPROLOL SUCC 25MG EXT REL TAB PO SCH (09:00)
[2016-10-19] MEDS ORDERED: CEFAZOLIN SOD 1000MG/55 ML D5W IV ONE (11:34)
[2016-10-19] MEDS ORDERED: MIDAZOLAM HCL 1 MG/ML 2ML VIAL ONE (11:39)
[2016-10-19] MEDS ORDERED: FENTANYL CITRATE INJ 50 MCG/1 ML 2 ML VIAL ONE (11:39)
[2016-10-19] MEDS ORDERED: BUPIVACAINE 0.5 % 5 MG/1 ML PF 10ML VIAL ONE (11:43)
[2016-10-19] MEDS ORDERED: NURSING VERBAL MED ORDER ONE (11:45)
--- NOTE | 2016-10-19 11:56 | History & Physical Bridge Note ---
H&P Re-Evaluation Bridge Note: I have examined the patient, reviewed the History & Physical and in the interval since the performance of the History & Physical I have noted the following changes of clinical significance: No changes noted
[2016-10-19] MEDS ORDERED: LACTATED RINGER'S 1000ML 1,000 ML IV PRN (12:33)
[2016-10-19] MEDS ORDERED: ONDANSETRON INJ 2 MG/ML 2 ML VIAL IV PRN ×2 (12:45→13:45)
[2016-10-19] MEDS ORDERED: FENTANYL CITRATE INJ 50 MCG/1 ML 2 ML VIAL IV PRN (12:45)
[2016-10-19] MEDS ORDERED: LIDOCAINE HCL 2% 2 ML VIAL (20MG/ML) ONE (13:02)
[2016-10-19] MEDS ORDERED: PROPOFOL IV EMULSION 10 MG/ML 20 ML VIAL IV ONE (13:02)
[2016-10-19] MEDS ORDERED: BACITRACIN 50,000 UNITS IR ONE (13:32)
--- NOTE | 2016-10-19 13:39 | [facility] Post Operative Brief Note ---
Immediate Operative Summary Operative Date Oct 19, 2016. Pre-Operative Diagnosis Right Displaced Intertrochanteric Hip Fracture Post-Operative Diagnosis Right Displaced Intertrochanteric Hip Fracture Procedure(s) Performed ORIF Right Displaced Intertrochanteric Hip Fracture w/ Trochanteric Nail Surgeon Dr. Espinosa [employer] Technician Surgeon(s) FLAVIO Bailey Estimated Blood Loss 50 ml Findings See Dict Specimens none per surgeon Drains None Anesthesia Spinal w/ Sedation Complication(s) None Disposition Recovery Room / PACU
[2016-10-19] MEDS ORDERED: SOD PHOSPHATE/SOD BIPHOSPHATE ENEMA 132 ML BTL PR PRN (13:45)
[2016-10-19] MEDS ORDERED: MoRPHine SULFATE 2 MG/ML CARP IV PRN (13:45)
[2016-10-19] MEDS ORDERED: BISACODYL 10 MG SUPP PR PRN (13:45)
[2016-10-19] MEDS ORDERED: ZOLPIDEM TARTRATE 5 MG TAB PO PRN (13:45)
[2016-10-19] MEDS ORDERED: ALUMINUM/MAGNESIUM/SIMETH (MAALOX MAX) 30 ML UDC PO PRN (13:45)
[2016-10-19] MEDS ORDERED: OXYCODONE/ACETAMINOPHEN 5-325 TAB PO PRN (13:45)
[2016-10-19] MEDS ORDERED: NO NSAIDS SCH (13:45)
[2016-10-19] MEDS ORDERED: MAGNESIUM HYDROXIDE SUSP 30 ML UDC PO PRN (13:45)
[2016-10-19] MEDS: ACETAMINOPHEN 500 MG TAB PO SCH ×2 (14:00→22:20)
--- NOTE | 2016-10-19 14:28 | DIAGNOSTIC IMAGING REPORT ---
RIGHT HIP UNILATERAL 2 VIEWS CLINICAL HISTORY: Postoperative evaluation. COMPARISON: Pelvis and right hip radiographs October 18, 2016. FINDINGS: These images demonstrate placement of a right femoral trochanteric nail. Hardware fixates the intertrochanteric fracture of the right femur. Alignment is improved. Alignment is near anatomic. Hardware is intact. There are skin joce. No unexpected radiopaque foreign bodies are present. IMPRESSION: Expected findings following internal fixation of the intertrochanteric fracture of the right femur. Electronically signed by: Conrad Can M.D. 10/19/2016 2:27 PM Dictated Date/Time: 10/19/2016 2:23 PM
--- NOTE | 2016-10-19 14:34 | DIAGNOSTIC IMAGING REPORT ---
INTRAOPERATIVE FLUOROSCOPIC IMAGES OF THE RIGHT HIP CLINICAL HISTORY: Internal fixation with trochanteric nail. COMPARISON STUDY: Pelvis and right femur radiographs October 18, 2016. FLUOROSCOPY TIME: 80 seconds. FINDINGS: 5 fluoroscopic images demonstrate placement of an trochanteric nail within the right femur. Hardware fixates the intertrochanteric fracture. Alignment is improved and near anatomic. Hardware is intact. There are no unexpected radiopaque foreign bodies. IMPRESSION: Expected findings following internal fixation of the intertrochanteric fracture of the right femur. Electronically signed by: Conrad Can M.D. 10/19/2016 2:32 PM Dictated Date/Time: 10/19/2016 2:31 PM
--- NOTE | 2016-10-19 14:49 | OPERATIVE REPORT ---
DATE OF OPERATION: 10/19/2016 PREOPERATIVE DIAGNOSIS: Right displaced intratrochanteric hip fracture. POSTOPERATIVE DIAGNOSIS: Same. PROCEDURE: Open reduction and internal fixation of right displaced intratrochanteric hip fracture with a Synthes trochanteric nail. SURGEON: Dr. Bill Espinosa. RECEPTION CLERK: Hema Gandhi PA-C, who was present for patient positioning, sterile prep and drape, management of retractors and instruments. He was present through the critical portions of the case including wound closure, application of sterile dressing and transport of the patient to recovery. ANESTHESIA: Spinal with sedation. SPECIMENS: None. DRAINS: None. COMPLICATIONS: None. BLOOD LOSS: 50 mL. PERTINENT HISTORY: This is an 80-year-old female who sustained a fall on her right hip. She had pain and inability to ambulate. She was then transported to [facility] and radiographs were performed. She was diagnosed with an intratrochanteric hip fracture and admitted to the hospital for further care and management and optimization for surgery. The patient was scheduled for surgery as indicated. All potential risks, benefits, complications, alternatives, rehab, potential for incomplete relief of symptoms, need for further surgery, DVT, PE, , persistent pain, swelling, scarring, weakness, neurovascular injury, wound complications, hardware breakage, nonunion, malunion or bone fracture were discussed with the patient and her family and they decided to proceed with the procedure as indicated. DESCRIPTION OF PROCEDURE: The patient was transferred to the operative suite. The proper site was identified. The consent was reviewed, the patient was then administered sedation and spinal anesthetic. Once appropriate, the patient then transferred to the fracture table where the lower extremity was placed in fracture table traction and the nonoperative leg was placed in the well leg [id number]. All bony prominences were properly padded and protected. The padded post was placed in the perineum and the patient was positioned appropriately. Next the right leg was placed on traction and reduction of the fracture was performed under fluoroscopic control. Next the operative hip was then sterilely prepped and draped in the usual fashion. Next a 10-blade scalpel incision was used to make an incision proximal to the greater trochanter. The incision was deep in the subcutaneous tissue and fascia and the tip of the greater trochanter was then palpated followed by placement of a guide pin under fluoroscopic control driven into the greater trochanter down to the level of the less trochanter. This was confirmed in AP and lateral projections followed by placement of the proximal reamer over the cannulated guide pin. Next the reamer was then removed using the soft tissue protector, which was also removed. Next the ball tip guide litzy was placed into the proximal femur under fluoroscopic control confirmed with AP and lateral fluoroscope projections. Next the trochanteric nail was then passed over the guide litzy into the femur, the guide litzy was removed and then under fluoroscopic control appropriate level of the femoral nail was then placed in AP projections. Next the targeting device was then fixed to the driving handle and 10-blade scalpel incision was made in the lateral aspect of the thigh. Next the tissue protector and cannulated guide system was then passed into the soft tissue until it was securely fixed against a lateral aspect of the femoral cortex. This was also confirmed under C-arm. Next the guide pin for the spiral blade was driven into the lateral aspect of the femur confirming this with AP lateral projections until the guide pin was in the center of the femoral neck and head approximately 5 mm from the subcortical bone of the femur. Next the spiral blade was then measured and then the lateral cortex was then drilled with the cortex reamer followed by use of the triple reamer with the depth stop set at appropriate depth. A spiral blade was then inserted over the cannulated guide litzy under fluoroscopic control. This was seated appropriately then traction was reduced from the limb and the fracture was then gently compressed and then locked proximally with the flexible screwdriver. Next the spiral blade was then disengaged from its insertion handle, insertion handle was then removed and the guide pin was removed from the femoral neck and head. Next the lateral targeting arm was used to insert the distal locking screw. First a 10-blade scalpel incision was made in the lateral aspect of the thigh, captured drill sleeves were then tamped gently to the lateral aspect of the femoral cortex then the locking screw hole was then drilled, measured and then an appropriate length screw was placed to lock the distal aspect of the nail. Next targeting sleeves were then removed. The insertion arm was then removed from the nail and final x-rays were obtained in AP and lateral projections. All incisions were then copiously irrigated with sterile normal saline. The proximal gluteus fascia was then closed using interrupted #1 Vicryl, the dermis was closed using buried interrupted 2-0 Vicryl sutures in all three incisions and the skin was then closed using skin joce. A sterile compressive dressing consisting of Xeroform gauze, sterile 4 x 4's and Tegaderm was applied. The patient was then awakened and taken to recovery in stable condition. I attest to the content of the Intraoperative Record and any orders documented therein. Any exceptions are noted below. MTDD
--- NOTE | 2016-10-19 15:11 | Anesthesiology Progress Note ---
Anesthesia Post Op Note Date & Time Oct 19, 2016 at 15:11 Vital Signs Pain Intensity: 0 Vital Signs Past 12 Hours Date Time Temp Pulse Resp B/P Pulse Ox O2 Delivery O2 Flow Rate FiO2 10/19/16 15:05 101 19 147/63 94 Nasal Cannula 2 10/19/16 14:55 100 20 145/73 95 Nasal Cannula 2 10/19/16 14:45 91 18 155/101 92 Nasal Cannula 2 10/19/16 14:35 88 19 136/77 95 Nasal Cannula 2 10/19/16 14:25 85 18 139/90 94 Nasal Cannula 2 10/19/16 14:15 96 20 122/72 96 Nasal Cannula 2 10/19/16 14:05 79 17 117/63 97 Mask 10 10/19/16 13:55 90 25 133/71 97 Mask 10 10/19/16 13:47 36.7 69 16 134/72 99 Mask 10 10/19/16 07:23 Room Air 10/19/16 06:55 37.0 80 16 159/77 95 Room Air Notes Mental Status: alert / awake / arousable, participated in evaluation Pt Amnestic to Procedure: Yes Nausea / Vomiting: adequately controlled Pain: adequately controlled Airway Patency, RR, SpO2: stable & adequate BP & HR: stable & adequate Hydration State: stable & adequate Neuraxial Anesthesia: was administered, sensory block is resolving Anesthetic Complications: no major complications apparent Pt doing well.
[2016-10-19] MEDS: DIGOXIN 0.125 MG TAB PO SCH (15:40)
[2016-10-19] MEDS: OXYCODONE HCL IR 5 MG TAB (IMMEDIATE RELEASE) PO PRN (16:53)
[2016-10-19] MEDS: FERROUS GLUCONATE 324 MG TAB PO SCH (17:35)
--- NOTE | 2016-10-19 17:46 | Progress Note ---
Subjective Date of Service: Oct 19, 2016. Subjective Pt evaluation today including: conversation w/ patient, physical exam, chart review, lab review, review of studies, review of inpatient medication list Problem List Medical Problems: (1) Closed right hip fracture Status: Acute Review of Systems Constitutional: No chills, No fever Eyes: No worsening of vision ENT: No hearing loss Respiratory: + shortness of breath, No cough, No sputum, No wheezing Cardiac: No PND, No chest pain, No orthopnea Abdomen: No diarrhea, No pain, No vomiting Musculoskeletal: + joint pain Female : No dysuria Neurologic: No memory loss, No paralysis Psychiatric: No depression symptoms Heme: No abnormal bleeding/bruising Endo: No fatigue Skin: No rash Medications Current Inpatient Medications Medications (Trade) Dose Ordered Sig/Christine Route Start Time Stop Time Status Last Admin Dose Admin Acetaminophen (Tylenol Tab) 650 mg Q4H PRN PO 10/18/16 11:45 11/17/16 11:44 Future Hold Magnesium Hydroxide (Milk Of Magnesia Susp) 30 ml Q6H PRN PO 10/18/16 11:45 11/17/16 11:44 Polyethylene (Miralax Powder Packet) 17 gm DAILY PRN PO 10/18/16 11:45 11/17/16 11:44 Morphine Sulfate (MoRPHine SULFATE INJ) 2 mg Q3HWA PRN IV 10/18/16 18:00 11/01/16 17:59 10/19/16 16:23 2 MG Carbidopa/Levodopa (Sinemet 25/ 100MG Tab) 1 tab QID PO 10/18/16 21:00 11/17/16 20:59 10/19/16 17:35 1 TAB Digoxin (Lanoxin Tab) 0.125 mg DAILY@1600 PO 10/19/16 16:00 11/18/16 15:59 10/19/16 15:40 0.125 MG Metoprolol Succinate (Toprol Xl Tab) 25 mg DAILY PO 10/19/16 09:00 11/18/16 08:59 10/19/16 08:49 25 MG Nitroglycerin (Nitrostat Tab) 0.4 mg UD PRN [place] 10/18/16 17:45 11/17/16 17:44 Pantoprazole Sodium 40 mg 40 mg DAILY PO 10/19/16 09:00 11/18/16 08:59 10/19/16 08:48 40 MG Dextrose/Sodium Chloride (D5W And Nss) 1,000 ml @ 75 mls/hr [id number] IV 10/18/16 17:45 11/17/16 17:44 10/19/16 16:26 75 MLS/HR Fentanyl Citrate (Fentanyl Inj) 25 mcg Q5M PRN IV 10/19/16 12:45 10/19/16 19:45 Ondansetron HCl 4 mg 4 mg ONE PRN IV 10/19/16 12:45 10/19/16 19:45 Lactated Ringer's (Lr 1000ml) 1,000 ml @ 110 mls/hr Q9H6M PRN IV 10/19/16 12:33 10/19/16 19:45 Miscellaneous Medication (No Nsaids) 1 ea UD N/A 10/19/16 13:45 11/18/16 13:44 Oxycodone HCl (Roxicodone Immediate Rel Tab) 1-2 TABS FOR PAIN 1 TABLET ... Q4H PRN PO 10/19/16 13:45 11/02/16 13:44 10/19/16 16:53 10 MG Oxycodone/ Acetaminophen (Percocet 5-325mg Tab) 1-2 TABLETS 1 TABLET ... Q6H PRN PO 10/19/16 13:45 11/02/16 13:44 Future Hold Morphine Sulfate (MoRPHine SULFATE INJ) 1 mg Q1HWA PRN IV 10/19/16 13:45 11/02/16 13:44 Acetaminophen (Tylenol Tab) 1,000 mg Q8H PO 10/19/16 14:00 11/18/16 13:44 Bisacodyl (Dulcolax Supp) 10 mg DAILY PRN [place] 10/19/16 13:45 11/18/16 13:44 Sodium Biphosphate/ Sodium Phosphate (Fleet Enema) 132 ml DAILY PRN [place] 10/19/16 13:45 11/18/16 13:44 Senna (Senokot Tab) 17.2 mg HS PO 10/19/16 21:00 11/18/16 20:59 Docusate Sodium (coLACE CAP) 100 mg BID PO 10/19/16 21:00 11/18/16 20:59 Diphenhydramine HCl (Benadryl Cap) 25 mg Q8H PRN PO 10/19/16 13:45 11/18/16 13:44 Al Hydrox/Mg Hydrox/Simethicone (Maalox Max Susp) 15 ml Q4H PRN PO 10/19/16 13:45 11/18/16 13:44 Zolpidem Tartrate (Ambien Tab) 5 mg HSZ PRN PO 10/19/16 13:45 11/18/16 13:44 Multivitamins (Multivitamin Tab) 1 tab QAM PO 10/20/16 09:00 11/19/16 08:59 Ondansetron HCl (Zofran Inj) 4 mg Q6H PRN IV 10/19/16 13:45 11/18/16 13:44 Ferrous Gluconate (Ferrous Gluconate Tab) 324 mg TIDM PO 10/19/16 17:45 11/18/16 17:44 10/19/16 17:35 324 MG Pantoprazole Sodium 40 mg 40 mg QAM PO 10/20/16 09:00 11/19/16 08:59 Cefazolin Sodium/ Dextrose (Ancef Iv/D5 50ml) 55 ml @ 100 mls/hr Q8H IV 10/19/16 20:00 10/20/16 04:32 Enoxaparin Sodium (Lovenox Inj) 40 mg QAM SQ 10/20/16 09:00 11/19/16 08:59 Objective Vital Signs Date Time Temp Pulse Resp B/P Pulse Ox O2 Delivery O2 Flow Rate FiO2 10/19/16 17:39 96 18 148/83 93 Room Air 10/19/16 16:30 37.0 110 20 177/76 94 Room Air 10/19/16 16:02 37.0 113 20 163/80 93 Nasal Cannula 2.0 10/19/16 15:40 97 10/19/16 15:25 94 Nasal Cannula 2.0 10/19/16 15:25 37.1 97 16 130/76 94 Nasal Cannula 2.0 10/19/16 15:15 37.0 88 20 152/60 93 Nasal Cannula 2 10/19/16 15:05 101 19 147/63 94 Nasal Cannula 2 10/19/16 14:55 100 20 145/73 95 Nasal Cannula 2 10/19/16 14:45 91 18 155/101 92 Nasal Cannula 2 10/19/16 14:35 88 19 136/77 95 Nasal Cannula 2 10/19/16 14:25 85 18 139/90 94 Nasal Cannula 2 10/19/16 14:15 96 20 122/72 96 Nasal Cannula 2 10/19/16 14:05 79 17 117/63 97 Mask 10 10/19/16 13:55 90 25 133/71 97 Mask 10 10/19/16 13:47 36.7 69 16 134/72 99 Mask 10 10/19/16 07:23 Room Air 10/19/16 06:55 37.0 80 16 159/77 95 Room Air 10/18/16 23:30 Room Air 10/18/16 22:35 36.4 86 16 155/65 96 Room Air Physical Exam General Appearance: no apparent distress Eyes: normal inspection, PERRL, EOMI ENT: normal ENT inspection, hearing grossly normal Neck: supple Respiratory/Chest: chest non-tender, lungs clear, normal breath sounds, no respiratory distress Cardiovascular: regular rate, rhythm, no edema, no gallop, no JVD Abdomen: normal bowel sounds, non tender, soft, no organomegaly Extremities: + pertinent finding (right hip wrapped s/p surgery) Neurologic/Psychiatric: prefitter II-XII nml as tested, no motor/sensory deficits, alert, normal mood/affect, oriented x 3 Skin: normal color, warm/dry Laboratory Results Last 24 Hours Test 10/19/16 05:51 White Blood Count 9.73 K/uL Red Blood Count 4.11 M/uL Hemoglobin 13.7 g/dL Hematocrit 39.8 % Mean Corpuscular Volume 96.8 fL Mean Corpuscular Hemoglobin 33.3 pg Mean Corpuscular Hemoglobin Concent 34.4 g/dl Platelet Count 192 K/uL Mean Platelet Volume 11.5 fL Neutrophils (%) (Auto) 77.7 % Lymphocytes (%) (Auto) 11.2 % Monocytes (%) (Auto) 10.4 % Eosinophils (%) (Auto) 0.3 % Basophils (%) (Auto) 0.2 % Neutrophils # (Auto) 7.56 K/uL Lymphocytes # (Auto) 1.09 K/uL Monocytes # (Auto) 1.01 K/uL Eosinophils # (Auto) 0.03 K/uL Basophils # (Auto) 0.02 K/uL RDW Standard Deviation 45.3 fL RDW Coefficient of Variation 13.0 % Immature Granulocyte % (Auto) 0.2 % Immature Granulocyte # (Auto) 0.02 K/uL Prothrombin Time 14.5 SECONDS Prothromb Time International Ratio 1.3 Sodium Level 138 mmol/L Potassium Level 3.7 mmol/L Chloride Level 103 mmol/L Carbon Dioxide Level 24 mmol/L Anion Gap 11.0 mmol/L Blood Urea Nitrogen 16 mg/dl Creatinine 0.74 mg/dl Est Creatinine Clear Calc Drug Dose 56.7 ml/min Estimated GFR () 88.7 Estimated GFR (Non- 76.5 BUN/Creatinine Ratio 21.5 Random Glucose 147 mg/dl Calcium Level 8.5 mg/dl Phosphorus Level 2.1 mg/dl Magnesium Level 2.0 mg/dl Total Bilirubin 1.6 mg/dl Aspartate Amino Transf (AST/SGOT) 38 U/L Alanine Aminotransferase (ALT/SGPT) 16 U/L Alkaline Phosphatase 114 U/L Total Protein 6.5 gm/dl Albumin 2.7 gm/dl Globulin 3.8 gm/dl Albumin/Globulin Ratio 0.7 Assessment and Plan 80 years old lady with parkinsonism sustained a mechanical fall. Right intertrochanteric hip fracture. Orthopedic consult is appreciated S/P ORIF Right Displaced Intertrochanteric Hip Fracture w/ Trochanteric Nail POD # 0 A fib on coumadin INR is 1.3 given 10mg of vit K IV yesterday repeat INR in am start Coumadin when OK with orthopedic group HTN continue B carey Parkinsonis continue home meds SLE continue home meds Remote Hx of DVT 30 years ago (was on coumadin for 6 months at that time as per patient) Full code
[2016-10-19] MEDS: CEFAZOLIN IV 1,000 MG in DEXTROSE 5% 50ML 50 ML IV SCH (20:20)
[2016-10-19] MEDS: DOCUSATE SODIUM 100 MG CAP PO SCH (20:21)
[2016-10-19] MEDS: SENNA 8.6 MG TAB PO SCH (20:22)
[2016-10-20] VITALS (8 sets, daily range): BP systolic 96–125; BP diastolic 58–73; PULSE 71–97; TEMP 36.6–36.9; O2SAT 91–94
[2016-10-20] MEDS: CEFAZOLIN IV 1,000 MG in DEXTROSE 5% 50ML 50 ML IV SCH (03:29)
[2016-10-20] MEDS: ACETAMINOPHEN 500 MG TAB PO SCH ×3 (05:37→21:05)
[2016-10-20 05:39] LABS: BASO % 0.1 %; BASO ABS # 0.02 K/uL (0-0.2); COMPLETE YES; EOS % 0.1 %; HEMATOCRIT 36.8 % (37-47); IG% 0.4 %; LYMPH % 8.9 %; LYMPH ABS # 1.21 K/uL (1.2-3.4); MEAN CELL VOLUME 96.1 fL (80-100); MEAN CORPUSCULAR HEMOGLOBIN 33.4 pg (25-34); MEAN CORPUSCULAR HGB CONC 34.8 g/dl (32-36); MEAN PLATELET VOLUME 11.2 fL (7.4-10.4); NEUT % 81.5 %; PLATELET COUNT 166 K/uL (130-400); RED BLOOD COUNT 3.83 M/uL (4.2-5.4)
[2016-10-20 05:48] LABS: INR 1.2 (0.9-1.1); PROTHROMBIN TIME (PATIENT) 12.7 SECONDS (9.0-12.0)
[2016-10-20 06:15] LABS: CALCIUM 8.4 mg/dl (8.5-10.1); CREATININE 0.94 mg/dl (0.60-1.20); MAGNESIUM 1.9 mg/dl (1.8-2.4); POTASSIUM 3.8 mmol/L (3.5-5.1)
[2016-10-20 06:18] LABS: ALB/GLOB RATIO 0.6 (0.9-2); PHOSPHORUS 1.9 mg/dl (2.5-4.9)
--- NOTE | 2016-10-20 08:01 | Orthopedic Progress Note ---
Orthopedic Progress Note Date of Service Oct 20, 2016. Subjective Post OP Day: 1 Reports: feeling well, pain controlled w PO medications, Denies: SOB, calf pain , chest pain, complaints, light headedness, nausea / vomiting Additional Notes: States the right hip is feeling a little better today than it was prior to surgery. Objective calves soft nontender, N/V intact, capillary refill less than 2 sec., dressing C /D/I, A&O x3, toes mobile Date Time Temp Pulse Resp B/P Pulse Ox O2 Delivery O2 Flow Rate FiO2 10/20/16 07:48 36.9 79 16 96/58 93 Room Air 10/20/16 03:14 36.8 91 16 122/73 92 Room Air 10/19/16 22:51 37.0 104 16 121/67 93 Room Air 10/19/16 19:20 Room Air 10/19/16 18:30 37.0 100 16 124/78 94 Room Air 10/19/16 17:39 96 18 148/83 93 Room Air 10/19/16 16:30 37.0 110 20 177/76 94 Room Air 10/19/16 16:02 37.0 113 20 163/80 93 Nasal Cannula 2.0 10/19/16 15:40 97 10/19/16 15:25 94 Nasal Cannula 2.0 10/19/16 15:25 37.1 97 16 130/76 94 Nasal Cannula 2.0 10/19/16 15:15 37.0 88 20 152/60 93 Nasal Cannula 2 10/19/16 15:05 101 19 147/63 94 Nasal Cannula 2 10/19/16 14:55 100 20 145/73 95 Nasal Cannula 2 10/19/16 14:45 91 18 155/101 92 Nasal Cannula 2 10/19/16 14:35 88 19 136/77 95 Nasal Cannula 2 10/19/16 14:25 85 18 139/90 94 Nasal Cannula 2 10/19/16 14:15 96 20 122/72 96 Nasal Cannula 2 10/19/16 14:05 79 17 117/63 97 Mask 10 10/19/16 13:55 90 25 133/71 97 Mask 10 10/19/16 13:47 36.7 69 16 134/72 99 Mask 10 Laboratory Results 24 Hours: Test 10/20/16 05:25 White Blood Count 13.60 K/uL Red Blood Count 3.83 M/uL Hemoglobin 12.8 g/dL Hematocrit 36.8 % Mean Corpuscular Volume 96.1 fL Mean Corpuscular Hemoglobin 33.4 pg Mean Corpuscular Hemoglobin Concent 34.8 g/dl Platelet Count 166 K/uL Mean Platelet Volume 11.2 fL Neutrophils (%) (Auto) 81.5 % Lymphocytes (%) (Auto) 8.9 % Monocytes (%) (Auto) 9.0 % Eosinophils (%) (Auto) 0.1 % Basophils (%) (Auto) 0.1 % Neutrophils # (Auto) 11.07 K/uL Lymphocytes # (Auto) 1.21 K/uL Monocytes # (Auto) 1.23 K/uL Eosinophils # (Auto) 0.02 K/uL Basophils # (Auto) 0.02 K/uL Prothromb Time International Ratio 1.2 Prothrombin Time 12.7 SECONDS Assessment & Plan Assessment: POD #1 s/p ORIF right hip fx with trochanteric nail Plan: 50% WB on the RLE. ROM as tolerated Right hip. Inhouse Planning Pain Management: Morphine, Oxy IR DVT Prophylaxis: TEDs, SCDs, Lovenox Discharge Planning Discharge Planning: uncertain
[2016-10-20] MEDS: METOPROLOL SUCC 25MG EXT REL TAB PO SCH (08:50)
[2016-10-20] MEDS: ENOXAPARIN 40 MG/0.4 ML SYR SQ SCH (08:50)
[2016-10-20] MEDS: MULTIVITAMIN TAB PO SCH (08:51)
[2016-10-20] MEDS: PANTOprazole SOD 40 MG TAB PO SCH (08:51)
[2016-10-20] MEDS: FERROUS GLUCONATE 324 MG TAB PO SCH ×3 (08:51→17:35)
[2016-10-20] MEDS: DOCUSATE SODIUM 100 MG CAP PO SCH ×2 (08:51→21:03)
[2016-10-20] MEDS ORDERED: NURSING VERBAL MED ORDER ONE ×3 (09:00→17:45)
[2016-10-20] MEDS ORDERED: PANTOprazole SOD 40 MG TAB PO SCH (09:00)
[2016-10-20] MEDS: CARBIDOPA/LEVODOPA 25/100MG TAB PO SCH ×4 (10:10→21:04)
[2016-10-20] MEDS: OXYCODONE HCL IR 5 MG TAB (IMMEDIATE RELEASE) PO PRN (10:10)
[2016-10-20] MEDS: MoRPHine SULFATE 2 MG/ML CARP IV PRN (11:50)
--- NOTE | 2016-10-20 13:36 | Anesthesiology Progress Note ---
Anesthesia Post Op Note Date & Time Oct 20, 2016 at 13:35 Vital Signs Vital Signs Past 12 Hours Date Time Temp Pulse Resp B/P Pulse Ox O2 Delivery O2 Flow Rate FiO2 10/20/16 12:54 97 125/72 10/20/16 11:35 92 10/20/16 10:40 36.6 75 17 99/63 91 Room Air 10/20/16 08:49 84 114/72 10/20/16 08:09 Room Air 10/20/16 07:48 36.9 79 16 96/58 93 Room Air 10/20/16 03:14 36.8 91 16 122/73 92 Room Air Notes Mental Status: alert / awake / arousable, participated in evaluation Pt Amnestic to Procedure: Yes Nausea / Vomiting: adequately controlled Pain: adequately controlled Airway Patency, RR, SpO2: stable & adequate BP & HR: stable & adequate Hydration State: stable & adequate Anesthetic Complications: no major complications apparent
[2016-10-20] MEDS: DIGOXIN 0.125 MG TAB PO SCH (15:53)
[2016-10-20] MEDS ORDERED: WARFARIN SOD 2 MG TAB PO SCH (16:00)
--- NOTE | 2016-10-20 17:25 | Progress Note ---
Subjective Date of Service: Oct 20, 2016. Subjective Pt evaluation today including: conversation w/ patient, physical exam, chart review, lab review Problem List Medical Problems: (1) Closed right hip fracture Status: Acute Review of Systems Constitutional: No chills, No fatigue, No fever, No problem reported, No see HPI, No sweats, No weakness, No weight loss Eyes: No diplopia, No discharge, No eye pain, No problem reported, No redness, No see HPI, No worsening of vision ENT: No dental problems, No hearing loss, No nasal symptoms, No problem reported, No see HPI, No sore throat, No tinnitus, No trouble swallowing, No unusual epistaxis Respiratory: + shortness of breath, No cough, No dyspnea at rest, No dyspnea on exertion, No hemoptysis, No problem reported, No see HPI, No sputum, No wheezing Cardiac: No PND, No chest pain, No claudication, No edema, No orthopnea, No palpitations, No problem reported, No see HPI Abdomen: No GI bleeding, No constipation, No diarrhea, No nausea, No pain, No problem reported, No see HPI, No vomiting Musculoskeletal: + joint pain, No calf pain, No muscle pain, No problem reported, No see HPI, No swelling Neurologic: No balance problems, No memory loss, No numbness/tingling, No paralysis, No problem reported, No see HPI, No vertigo, No weakness Psychiatric: No anhedonism, No anxiety, No depression symptoms, No insomnia, No problem reported, No see HPI, No substance abuse Heme: No abnormal bleeding/bruising, No clotting problems, No night sweats, No problem reported, No see HPI, No swollen lymph nodes Skin: No bleeding, No color change, No itch, No new/changing skin lesions, No problem reported, No rash, No see HPI Medications Current Inpatient Medications Medications (Trade) Dose Ordered Sig/Christine Route Start Time Stop Time Status Last Admin Dose Admin Acetaminophen (Tylenol Tab) 650 mg Q4H PRN PO 10/18/16 11:45 11/17/16 11:44 Future Hold Magnesium Hydroxide (Milk Of Magnesia Susp) 30 ml Q6H PRN PO 10/18/16 11:45 11/17/16 11:44 Polyethylene (Miralax Powder Packet) 17 gm DAILY PRN PO 10/18/16 11:45 11/17/16 11:44 Morphine Sulfate (MoRPHine SULFATE INJ) 2 mg Q3HWA PRN IV 10/18/16 18:00 11/01/16 17:59 10/20/16 11:50 2 MG Carbidopa/Levodopa (Sinemet 25/ 100MG Tab) 1 tab QID PO 10/18/16 21:00 11/17/16 20:59 10/20/16 13:16 1 TAB Digoxin (Lanoxin Tab) 0.125 mg DAILY@1600 PO 10/19/16 16:00 11/18/16 15:59 10/20/16 15:53 0.125 MG Metoprolol Succinate (Toprol Xl Tab) 25 mg DAILY PO 10/19/16 09:00 11/18/16 08:59 10/20/16 08:50 25 MG Nitroglycerin (Nitrostat Tab) 0.4 mg UD PRN UT 10/18/16 17:45 11/17/16 17:44 Pantoprazole Sodium (Protonix Tab) 40 mg DAILY PO 10/19/16 09:00 11/18/16 08:59 10/20/16 08:51 40 MG Miscellaneous Medication (No Nsaids) 1 ea UD N/A 10/19/16 13:45 11/18/16 13:44 Oxycodone HCl (Roxicodone Immediate Rel Tab) 1-2 TABS FOR PAIN 1 TABLET ... Q4H PRN PO 10/19/16 13:45 11/02/16 13:44 10/20/16 10:10 10 MG Oxycodone/ Acetaminophen (Percocet 5-325mg Tab) 1-2 TABLETS 1 TABLET ... Q6H PRN PO 10/19/16 13:45 11/02/16 13:44 Future Hold Morphine Sulfate (MoRPHine SULFATE INJ) 1 mg Q1HWA PRN IV 10/19/16 13:45 11/02/16 13:44 Acetaminophen (Tylenol Tab) 1,000 mg Q8H PO 10/19/16 14:00 11/18/16 13:44 10/20/16 14:13 1,000 MG Bisacodyl (Dulcolax Supp) 10 mg DAILY PRN [place] 10/19/16 13:45 11/18/16 13:44 Sodium Biphosphate/ Sodium Phosphate (Fleet Enema) 132 ml DAILY PRN [place] 10/19/16 13:45 11/18/16 13:44 Senna (Senokot Tab) 17.2 mg HS PO 10/19/16 21:00 11/18/16 20:59 10/19/16 20:22 17.2 MG Docusate Sodium (coLACE CAP) 100 mg BID PO 10/19/16 21:00 11/18/16 20:59 10/20/16 08:51 100 MG Diphenhydramine HCl (Benadryl Cap) 25 mg Q8H PRN PO 10/19/16 13:45 11/18/16 13:44 Al Hydrox/Mg Hydrox/Simethicone (Maalox Max Susp) 15 ml Q4H PRN PO 10/19/16 13:45 11/18/16 13:44 Zolpidem Tartrate (Ambien Tab) 5 mg HSZ PRN PO 10/19/16 13:45 11/18/16 13:44 Multivitamins (Multivitamin Tab) 1 tab QAM PO 10/20/16 09:00 11/19/16 08:59 10/20/16 08:51 1 TAB Ondansetron HCl (Zofran Inj) 4 mg Q6H PRN IV 10/19/16 13:45 11/18/16 13:44 Ferrous Gluconate (Ferrous Gluconate Tab) 324 mg TIDM PO 10/19/16 17:45 11/18/16 17:44 10/20/16 13:16 324 MG Enoxaparin Sodium (Lovenox Inj) 40 mg QAM SQ 10/20/16 09:00 11/19/16 08:59 10/20/16 08:50 40 MG Warfarin Sodium (Coumadin Tab) 2 mg DAILY@16 PO 10/20/16 16:00 11/19/16 15:59 10/20/16 15:52 2 MG Objective Vital Signs Date Time Temp Pulse Resp B/P Pulse Ox O2 Delivery O2 Flow Rate FiO2 10/20/16 15:53 70 10/20/16 14:54 36.7 97 18 106/69 92 Room Air 10/20/16 12:54 97 125/72 10/20/16 11:35 92 10/20/16 10:40 36.6 75 17 99/63 91 Room Air 10/20/16 08:49 84 114/72 10/20/16 08:09 Room Air 10/20/16 07:48 36.9 79 16 96/58 93 Room Air 10/20/16 03:14 36.8 91 16 122/73 92 Room Air 10/19/16 22:51 37.0 104 16 121/67 93 Room Air 10/19/16 19:20 Room Air 10/19/16 18:30 37.0 100 16 124/78 94 Room Air 10/19/16 17:39 96 18 148/83 93 Room Air Physical Exam General Appearance: WD/WN, no apparent distress Eyes: normal inspection, PERRL, EOMI ENT: normal ENT inspection, hearing grossly normal Neck: supple Respiratory/Chest: chest non-tender, lungs clear, normal breath sounds, no respiratory distress, no accessory muscle use Cardiovascular: regular rate, rhythm, no edema, no gallop, no JVD, no murmur Abdomen: normal bowel sounds, non tender, soft, no organomegaly Extremities: normal range of motion, non-tender, normal inspection Neurologic/Psychiatric: handkerchief folder II-XII nml as tested, no motor/sensory deficits, alert, normal mood/affect, oriented x 3 Skin: normal color, warm/dry, no rash Laboratory Results Last 24 Hours Test 10/20/16 05:25 White Blood Count 13.60 K/uL Red Blood Count 3.83 M/uL Hemoglobin 12.8 g/dL Hematocrit 36.8 % Mean Corpuscular Volume 96.1 fL Mean Corpuscular Hemoglobin 33.4 pg Mean Corpuscular Hemoglobin Concent 34.8 g/dl Platelet Count 166 K/uL Mean Platelet Volume 11.2 fL Neutrophils (%) (Auto) 81.5 % Lymphocytes (%) (Auto) 8.9 % Monocytes (%) (Auto) 9.0 % Eosinophils (%) (Auto) 0.1 % Basophils (%) (Auto) 0.1 % Neutrophils # (Auto) 11.07 K/uL Lymphocytes # (Auto) 1.21 K/uL Monocytes # (Auto) 1.23 K/uL Eosinophils # (Auto) 0.02 K/uL Basophils # (Auto) 0.02 K/uL RDW Standard Deviation 45.1 fL RDW Coefficient of Variation 13.0 % Immature Granulocyte % (Auto) 0.4 % Immature Granulocyte # (Auto) 0.05 K/uL Prothrombin Time 12.7 SECONDS Prothromb Time International Ratio 1.2 Sodium Level 135 mmol/L Potassium Level 3.8 mmol/L Chloride Level 101 mmol/L Carbon Dioxide Level 25 mmol/L Anion Gap 9.0 mmol/L Blood Urea Nitrogen 21 mg/dl Creatinine 0.94 mg/dl Est Creatinine Clear Calc Drug Dose 44.6 ml/min Estimated GFR () 66.4 Estimated GFR (Non- 57.3 BUN/Creatinine Ratio 22.0 Random Glucose 151 mg/dl Calcium Level 8.4 mg/dl Phosphorus Level 1.9 mg/dl Magnesium Level 1.9 mg/dl Total Bilirubin 1.9 mg/dl Aspartate Amino Transf (AST/SGOT) 32 U/L Alanine Aminotransferase (ALT/SGPT) 27 U/L Alkaline Phosphatase 107 U/L Total Protein 6.4 gm/dl Albumin 2.5 gm/dl Globulin 3.9 gm/dl Albumin/Globulin Ratio 0.6 Assessment and Plan 80 years old lady with parkinsonism sustained a mechanical fall. Right intertrochanteric hip fracture. Orthopedic consult is appreciated S/P ORIF Right Displaced Intertrochanteric Hip Fracture w/ Trochanteric Nail POD # 0 A fib on coumadin INR is 1.3 given 10mg of vit K IV on admission repeat INR in am start Coumadin today mean while continue Lovenox for DVT prophylaxis HTN continue B carey Parkinsonis continue home meds SLE continue home meds Remote Hx of DVT 30 years ago (was on coumadin for 6 months at that time as per patient) Full code
[2016-10-20] MEDS ORDERED: SODIUM CHLORIDE 0.9% 1000ML 1,000 ML IV SCH (18:00)
[2016-10-20] MEDS: SENNA 8.6 MG TAB PO SCH (21:04)
[2016-10-21] MEDS: OXYCODONE HCL IR 5 MG TAB (IMMEDIATE RELEASE) PO PRN ×3 (01:22→22:06)
[2016-10-21] MEDS: ACETAMINOPHEN 500 MG TAB PO SCH ×3 (05:39→22:05)
[2016-10-21 06:48] VITALS: BP 121/68; PULSE 90; TEMP 36.8; O2SAT 93
[2016-10-21 07:44] LABS: BASO % 0.2 %; BASO ABS # 0.03 K/uL (0-0.2); COMPLETE YES; EOS % 1.9 %; HEMATOCRIT 33.8 % (37-47); IG% 0.3 %; LYMPH % 8.6 %; MEAN CELL VOLUME 95.5 fL (80-100); MEAN CORPUSCULAR HEMOGLOBIN 33.6 pg (25-34); MEAN CORPUSCULAR HGB CONC 35.2 g/dl (32-36); MEAN PLATELET VOLUME 11.8 fL (7.4-10.4); MONO % 8.2 %; NEUT % 80.8 %; PLATELET COUNT 139 K/uL (130-400); RED BLOOD COUNT 3.54 M/uL (4.2-5.4); WHITE BLOOD COUNT 12.73 K/uL (4.8-10.8)
[2016-10-21 08:16] LABS: BUN/CREATININE RATIO 28.3 (10-20); CALCIUM 8.6 mg/dl (8.5-10.1); CREATININE 0.84 mg/dl (0.60-1.20)
[2016-10-21 08:19] LABS: ALB/GLOB RATIO 0.6 (0.9-2)
--- NOTE | 2016-10-21 08:44 | Orthopedic Progress Note ---
Orthopedic Progress Note Date of Service Oct 21, 2016. Subjective Post OP Day: 2 Reports: SOB, calf pain, Denies: chest pain, light headedness, nausea / vomiting Additional Notes: Pt c/o calf pain this morning with the nursing staff. Currently lying in bed. States she's been having calf pain in the calves, right greater than left. Also states she is somewhat SOB. Nursing has stated she mentioned this yesterday. No other complaints at this time. Objective N/V intact, dressing C/D/I, A&O x3, toes mobile Right calf tender on palpation at the mid calf. Increased pain with passive dorsiflexion of the foot. Mild calf pain of the left calf with mild pain on passive dorsiflexion. No overt edema of the ankles and feet. Right thigh swollen secondary to surgery but soft. Date Time Temp Pulse Resp B/P Pulse Ox O2 Delivery O2 Flow Rate FiO2 10/21/16 06:48 36.8 90 16 121/68 93 Room Air 10/20/16 23:25 36.9 71 14 105/59 94 Room Air 10/20/16 19:20 Room Air 10/20/16 15:53 70 10/20/16 14:54 36.7 97 18 106/69 92 Room Air 10/20/16 12:54 97 125/72 10/20/16 11:35 92 10/20/16 10:40 36.6 75 17 99/63 91 Room Air 10/20/16 08:49 84 114/72 Laboratory Results 24 Hours: Test 10/21/16 07:25 White Blood Count 12.73 K/uL Red Blood Count 3.54 M/uL Hemoglobin 11.9 g/dL Hematocrit 33.8 % Mean Corpuscular Volume 95.5 fL Mean Corpuscular Hemoglobin 33.6 pg Mean Corpuscular Hemoglobin Concent 35.2 g/dl Platelet Count 139 K/uL Mean Platelet Volume 11.8 fL Neutrophils (%) (Auto) 80.8 % Lymphocytes (%) (Auto) 8.6 % Monocytes (%) (Auto) 8.2 % Eosinophils (%) (Auto) 1.9 % Basophils (%) (Auto) 0.2 % Neutrophils # (Auto) 10.27 K/uL Lymphocytes # (Auto) 1.10 K/uL Monocytes # (Auto) 1.05 K/uL Eosinophils # (Auto) 0.24 K/uL Basophils # (Auto) 0.03 K/uL Assessment & Plan Assessment: POD #2 s/p ORIF right hip fx with trochanteric nail Bilateral Calf Pain SOB Plan: 50% WB on the RLE. ROM as tolerated Right hip. Discussed with [facility] [place] hospitalist. Will get bilateral US of LE's to r/o DVT and they will stop by shortly to see her as well. Will bump up her Coumadin today to 5mg. Inhouse Planning Pain Management: Morphine, Oxy IR DVT Prophylaxis: TEDs, SCDs, Coumadin, Lovenox Discharge Planning Discharge Planning: uncertain
[2016-10-21] MEDS: FERROUS GLUCONATE 324 MG TAB PO SCH ×3 (08:46→17:54)
[2016-10-21] MEDS: DOCUSATE SODIUM 100 MG CAP PO SCH ×2 (08:51→20:32)
[2016-10-21] MEDS: CARBIDOPA/LEVODOPA 25/100MG TAB PO SCH ×4 (08:51→20:33)
[2016-10-21] MEDS: PANTOprazole SOD 40 MG TAB PO SCH (08:51)
[2016-10-21] MEDS: METOPROLOL SUCC 25MG EXT REL TAB PO SCH (08:51)
[2016-10-21] MEDS: MULTIVITAMIN TAB PO SCH (08:51)
[2016-10-21] MEDS: ENOXAPARIN 40 MG/0.4 ML SYR SQ SCH (08:52)
[2016-10-21 09:12] VITALS: O2SAT 93
--- NOTE | 2016-10-21 09:40 | Progress Note ---
Subjective Date of Service: Oct 21, 2016. Subjective Pt evaluation today including: conversation w/ patient, physical exam, chart review, lab review, review of studies, conversation w/ oracle consultant Problem List Medical Problems: (1) Closed right hip fracture Status: Acute Review of Systems Constitutional: No chills, No fatigue, No fever, No problem reported, No see HPI, No sweats, No weakness, No weight loss Eyes: No diplopia, No discharge, No eye pain, No problem reported, No redness, No see HPI, No worsening of vision ENT: No dental problems, No hearing loss, No nasal symptoms, No problem reported, No see HPI, No sore throat, No tinnitus, No trouble swallowing, No unusual epistaxis Respiratory: + shortness of breath, No cough, No dyspnea at rest, No dyspnea on exertion, No hemoptysis, No problem reported, No see HPI, No sputum, No wheezing Cardiac: No PND, No chest pain, No claudication, No edema, No orthopnea, No palpitations, No problem reported, No see HPI Abdomen: No GI bleeding, No constipation, No diarrhea, No nausea, No pain, No problem reported, No see HPI, No vomiting Musculoskeletal: + calf pain, + muscle pain, No joint pain, No problem reported , No see HPI, No swelling Female : No abnormal vaginal bleeding, No dysuria, No hematuria, No incontinence, No problem reported, No see HPI, No urinary frequency, No vaginal discharge Neurologic: No balance problems, No memory loss, No numbness/tingling, No paralysis, No problem reported, No see HPI, No vertigo, No weakness Psychiatric: No anhedonism, No anxiety, No depression symptoms, No insomnia, No problem reported, No see HPI, No substance abuse Heme: No abnormal bleeding/bruising, No clotting problems, No night sweats, No problem reported, No see HPI, No swollen lymph nodes Endo: No excessive thirst, No excessive urination, No fatigue, No problem reported, No see HPI Skin: No bleeding, No color change, No itch, No new/changing skin lesions, No problem reported, No rash, No see HPI Medications Current Inpatient Medications Medications (Trade) Dose Ordered Sig/Christine Route Start Time Stop Time Status Last Admin Dose Admin Acetaminophen (Tylenol Tab) 650 mg Q4H PRN PO 10/18/16 11:45 11/17/16 11:44 Future Hold Magnesium Hydroxide (Milk Of Magnesia Susp) 30 ml Q6H PRN PO 10/18/16 11:45 11/17/16 11:44 10/21/16 08:57 30 ML Polyethylene (Miralax Powder Packet) 17 gm DAILY PRN PO 10/18/16 11:45 11/17/16 11:44 Morphine Sulfate (MoRPHine SULFATE INJ) 2 mg Q3HWA PRN IV 10/18/16 18:00 11/01/16 17:59 10/20/16 11:50 2 MG Carbidopa/Levodopa (Sinemet 25/ 100MG Tab) 1 tab QID PO 10/18/16 21:00 11/17/16 20:59 10/21/16 08:51 1 TAB Digoxin (Lanoxin Tab) 0.125 mg DAILY@1600 PO 10/19/16 16:00 11/18/16 15:59 10/20/16 15:53 0.125 MG Metoprolol Succinate (Toprol Xl Tab) 25 mg DAILY PO 10/19/16 09:00 11/18/16 08:59 10/21/16 08:51 25 MG Nitroglycerin (Nitrostat Tab) 0.4 mg UD PRN UT 10/18/16 17:45 11/17/16 17:44 Pantoprazole Sodium (Protonix Tab) 40 mg DAILY PO 10/19/16 09:00 11/18/16 08:59 10/21/16 08:51 40 MG Miscellaneous Medication (No Nsaids) 1 ea UD N/A 10/19/16 13:45 11/18/16 13:44 Oxycodone HCl (Roxicodone Immediate Rel Tab) 1-2 TABS FOR PAIN 1 TABLET ... Q4H PRN PO 10/19/16 13:45 11/02/16 13:44 10/21/16 08:58 10 MG Oxycodone/ Acetaminophen (Percocet 5-325mg Tab) 1-2 TABLETS 1 TABLET ... Q6H PRN PO 10/19/16 13:45 11/02/16 13:44 Future Hold Morphine Sulfate (MoRPHine SULFATE INJ) 1 mg Q1HWA PRN IV 10/19/16 13:45 11/02/16 13:44 Acetaminophen (Tylenol Tab) 1,000 mg Q8H PO 10/19/16 14:00 11/18/16 13:44 10/21/16 05:39 1,000 MG Bisacodyl (Dulcolax Supp) 10 mg DAILY PRN ND 10/19/16 13:45 11/18/16 13:44 Sodium Biphosphate/ Sodium Phosphate (Fleet Enema) 132 ml DAILY PRN ND 10/19/16 13:45 11/18/16 13:44 Senna (Senokot Tab) 17.2 mg HS PO 10/19/16 21:00 11/18/16 20:59 10/20/16 21:04 17.2 MG Docusate Sodium (coLACE CAP) 100 mg BID PO 10/19/16 21:00 11/18/16 20:59 10/21/16 08:51 100 MG Diphenhydramine HCl (Benadryl Cap) 25 mg Q8H PRN PO 10/19/16 13:45 11/18/16 13:44 Al Hydrox/Mg Hydrox/Simethicone (Maalox Max Susp) 15 ml Q4H PRN PO 10/19/16 13:45 11/18/16 13:44 Zolpidem Tartrate (Ambien Tab) 5 mg HSZ PRN PO 10/19/16 13:45 11/18/16 13:44 Multivitamins (Multivitamin Tab) 1 tab QAM PO 10/20/16 09:00 11/19/16 08:59 10/21/16 08:51 1 TAB Ondansetron HCl (Zofran Inj) 4 mg Q6H PRN IV 10/19/16 13:45 11/18/16 13:44 Ferrous Gluconate (Ferrous Gluconate Tab) 324 mg TIDM PO 10/19/16 17:45 11/18/16 17:44 10/21/16 08:46 324 MG Enoxaparin Sodium 40 mg 40 mg QAM SQ 10/20/16 09:00 11/19/16 08:59 10/21/16 08:52 40 MG Sodium Chloride (Nss 1000ml) 1,000 ml @ 50 mls/hr Q20H IV 10/20/16 18:00 11/19/16 17:59 10/20/16 17:54 50 MLS/HR Warfarin Sodium (Coumadin Tab) 5 mg DAILY@16 PO 10/21/16 16:00 11/20/16 15:59 UNV Objective Vital Signs Date Time Temp Pulse Resp B/P Pulse Ox O2 Delivery O2 Flow Rate FiO2 10/21/16 09:12 93 Room Air 10/21/16 06:48 36.8 90 16 121/68 93 Room Air 10/20/16 23:25 36.9 71 14 105/59 94 Room Air 10/20/16 19:20 Room Air 10/20/16 15:53 70 10/20/16 14:54 36.7 97 18 106/69 92 Room Air 10/20/16 12:54 97 125/72 10/20/16 11:35 92 10/20/16 10:40 36.6 75 17 99/63 91 Room Air Physical Exam General Appearance: no apparent distress Eyes: normal inspection, PERRL, EOMI ENT: normal ENT inspection, hearing grossly normal Neck: supple Respiratory/Chest: chest non-tender, normal breath sounds, no respiratory distress, + rales Cardiovascular: regular rate, rhythm, no edema, no JVD, no murmur Abdomen: normal bowel sounds, non tender, soft, no organomegaly Extremities: normal range of motion, + calf tenderness 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, no motor/sensory deficits, alert, normal mood/affect, oriented x 3 Skin: normal color, warm/dry, no rash Laboratory Results Last 24 Hours Test 10/21/16 07:25 White Blood Count 12.73 K/uL Red Blood Count 3.54 M/uL Hemoglobin 11.9 g/dL Hematocrit 33.8 % Mean Corpuscular Volume 95.5 fL Mean Corpuscular Hemoglobin 33.6 pg Mean Corpuscular Hemoglobin Concent 35.2 g/dl Platelet Count 139 K/uL Mean Platelet Volume 11.8 fL Neutrophils (%) (Auto) 80.8 % Lymphocytes (%) (Auto) 8.6 % Monocytes (%) (Auto) 8.2 % Eosinophils (%) (Auto) 1.9 % Basophils (%) (Auto) 0.2 % Neutrophils # (Auto) 10.27 K/uL Lymphocytes # (Auto) 1.10 K/uL Monocytes # (Auto) 1.05 K/uL Eosinophils # (Auto) 0.24 K/uL Basophils # (Auto) 0.03 K/uL RDW Standard Deviation 45.1 fL RDW Coefficient of Variation 12.8 % Immature Granulocyte % (Auto) 0.3 % Immature Granulocyte # (Auto) 0.04 K/uL Sodium Level 134 mmol/L Potassium Level 4.0 mmol/L Chloride Level 101 mmol/L Carbon Dioxide Level 22 mmol/L Anion Gap 11.0 mmol/L Blood Urea Nitrogen 24 mg/dl Creatinine 0.84 mg/dl Est Creatinine Clear Calc Drug Dose 49.9 ml/min Estimated GFR () 76.1 Estimated GFR (Non- 65.6 BUN/Creatinine Ratio 28.3 Random Glucose 107 mg/dl Calcium Level 8.6 mg/dl Phosphorus Level 2.0 mg/dl Total Bilirubin 1.9 mg/dl Aspartate Amino Transf (AST/SGOT) 30 U/L Alanine Aminotransferase (ALT/SGPT) 18 U/L Alkaline Phosphatase 105 U/L Total Protein 6.0 gm/dl Albumin 2.2 gm/dl Globulin 3.8 gm/dl Albumin/Globulin Ratio 0.6 Assessment and Plan 80 years old lady with parkinsonism sustained a mechanical fall. Right intertrochanteric hip fracture. Orthopedic consult is appreciated S/P ORIF Right Displaced Intertrochanteric Hip Fracture w/ Trochanteric Nail POD # 0 A fib on coumadin given 10mg of vit K IV on admission repeat INR in am restarted Coumadin mean while continue Lovenox for DVT prophylaxis will start tomorrow heparin drip with no Bolus, D/W orthopedic team continue Digoxin Has SOB of breath today and tenderness in lower Ext CXR agree with US lower Ext DC IVF possible low dose lasix HTN continue B carey Parkinsonis continue home meds SLE continue home meds Remote Hx of DVT 30 years ago (was on coumadin for 6 months at that time as per patient) Full code
--- NOTE | 2016-10-21 10:05 | DIAGNOSTIC IMAGING REPORT ---
BILATERAL LOWER EXTREMITY VENOUS DOPPLER CLINICAL HISTORY: Hip fracture. COMPARISON STUDY: Bilateral lower extremity venous Doppler July 23, 2013 TECHNIQUE: Sonography of the deep venous system of the bilateral lower extremities was performed. Compression and augmentation were evaluated. FINDINGS: This study was compromised by difficulty with positioning and suboptimal penetration. The bilateral common femoral, superficial femoral and popliteal veins were compressible. Augmentation was normal. Flow was shown within the deep calf vessels. IMPRESSION: No evidence of deep venous thrombus within the bilateral lower extremities. Electronically signed by: Conrad Can M.D. 10/21/2016 10:03 AM Dictated Date/Time: 10/21/2016 10:02 AM
--- NOTE | 2016-10-21 10:32 | DIAGNOSTIC IMAGING REPORT ---
SINGLE VIEW CHEST CLINICAL HISTORY: Dyspnea. FINDINGS: An AP, portable, semierect chest radiograph is compared to study dated 10/18/2016 and correlated with chest CT dated 10/19/2014. The examination is degraded by portable technique and patient rotation. The heart is enlarged and there is atherosclerotic calcification of the thoracic ureter. There is mild pulmonary vascular congestion. Chronic interstitial thickening is similar to previous, as is elevation of the right hemidiaphragm. Airspace opacities are present at the left lung base. No pneumothorax is seen. The skeletal structures are osteopenic. Degenerative change and scoliosis is noted in the thoracic spine. Cholecystectomy clips are seen in the right upper quadrant. IMPRESSION: 1. Cardiomegaly with mild pulmonary vascular congestion. 2. Question developing airspace opacities at the left lung base. This could present atelectasis versus a developing infectious or inflammatory pneumonitis. Clinical correlation will be required. Electronically signed by: Andry Dutta M.D. 10/21/2016 10:30 AM Dictated Date/Time: 10/21/2016 10:28 AM
[2016-10-21] MEDS ORDERED: NURSING VERBAL MED ORDER ONE (13:00)
[2016-10-21 14:48] VITALS: BP 105/65; PULSE 79; TEMP 36.5; O2SAT 92
[2016-10-21 16:30] VITALS: O2SAT 92
[2016-10-21] MEDS: WARFARIN SOD 5 MG TAB PO SCH (16:47)
[2016-10-21] MEDS: DIGOXIN 0.125 MG TAB PO SCH (16:48)
[2016-10-21] MEDS: SENNA 8.6 MG TAB PO SCH (20:32)
[2016-10-21 22:46] VITALS: BP 146/83; PULSE 88; TEMP 36.7; O2SAT 94
[2016-10-21] MEDS: MoRPHine SULFATE 2 MG/ML CARP IV PRN (23:21)
[2016-10-22] MEDS: ACETAMINOPHEN 500 MG TAB PO SCH ×3 (05:30→20:43)
[2016-10-22 07:17] VITALS: BP 131/77; PULSE 91; TEMP 36.8; O2SAT 95
[2016-10-22 07:21] LABS: BASO % 0.1 %; BASO ABS # 0.01 K/uL (0-0.2); COMPLETE YES; EOS % 0.6 %; IG% 0.3 %; LYMPH % 8.1 %; LYMPH ABS # 0.93 K/uL (1.2-3.4); MEAN CORPUSCULAR HEMOGLOBIN 32.8 pg (25-34); MEAN CORPUSCULAR HGB CONC 34.8 g/dl (32-36); MEAN PLATELET VOLUME 11.6 fL (7.4-10.4); MONO % 9.2 %; NEUT % 81.7 %; PLATELET COUNT 191 K/uL (130-400); RED BLOOD COUNT 3.51 M/uL (4.2-5.4); WHITE BLOOD COUNT 11.43 K/uL (4.8-10.8)
[2016-10-22] MEDS ORDERED: ETHACRYNATE SOD FOR INJ 50 MG VIAL IV ONE (07:45)
[2016-10-22 07:50] LABS: BUN/CREATININE RATIO 26.5 (10-20); CALCIUM 8.2 mg/dl (8.5-10.1); CREATININE 0.77 mg/dl (0.60-1.20); MAGNESIUM 2.2 mg/dl (1.8-2.4)
[2016-10-22] MEDS ORDERED: [UNRECOGNIZED DRUG - OTHER] IV SCH (08:30)
[2016-10-22] MEDS ORDERED: SODIUM CHLORIDE 0.9% IV SCH (08:30)
--- NOTE | 2016-10-22 09:50 | Orthopedic Progress Note ---
Orthopedic Progress Note Date of Service Oct 22, 2016. Subjective Post OP Day: 3 Reports: feeling well Objective N/V intact, dressing C/D/I, toes mobile Date Time Temp Pulse Resp B/P Pulse Ox O2 Delivery O2 Flow Rate FiO2 10/22/16 08:05 Room Air 10/22/16 07:17 36.8 91 16 131/77 95 Room Air 10/22/16 00:00 Room Air 10/21/16 22:46 36.7 88 18 146/83 94 Room Air 10/21/16 16:48 84 10/21/16 16:30 92 Room Air 10/21/16 14:48 36.5 79 20 105/65 92 Room Air Laboratory Results 24 Hours: Test 10/22/16 06:48 White Blood Count 11.43 K/uL Red Blood Count 3.51 M/uL Hemoglobin 11.5 g/dL Hematocrit 33.0 % Mean Corpuscular Volume 94.0 fL Mean Corpuscular Hemoglobin 32.8 pg Mean Corpuscular Hemoglobin Concent 34.8 g/dl Platelet Count 191 K/uL Mean Platelet Volume 11.6 fL Neutrophils (%) (Auto) 81.7 % Lymphocytes (%) (Auto) 8.1 % Monocytes (%) (Auto) 9.2 % Eosinophils (%) (Auto) 0.6 % Basophils (%) (Auto) 0.1 % Neutrophils # (Auto) 9.34 K/uL Lymphocytes # (Auto) 0.93 K/uL Monocytes # (Auto) 1.05 K/uL Eosinophils # (Auto) 0.07 K/uL Basophils # (Auto) 0.01 K/uL Assessment & Plan Assessment: POD #3 s/p ORIF right hip fx with trochanteric nail Plan: 1. Med management 2. DVT prophylaxis- Coumadin and Lovenox, SCDs, TEDs 3. PT/OT 4. D/C planning- per medicine Inhouse Planning Pain Management: Morphine, Oxy IR DVT Prophylaxis: TEDs, SCDs, Coumadin, Lovenox Discharge Planning Discharge Planning: uncertain
[2016-10-22] MEDS: FERROUS GLUCONATE 324 MG TAB PO SCH ×3 (10:36→18:39)
[2016-10-22] MEDS: DOCUSATE SODIUM 100 MG CAP PO SCH ×2 (10:37→20:44)
[2016-10-22] MEDS: PANTOprazole SOD 40 MG TAB PO SCH (10:37)
[2016-10-22] MEDS: MULTIVITAMIN TAB PO SCH (10:37)
[2016-10-22] MEDS: CARBIDOPA/LEVODOPA 25/100MG TAB PO SCH ×4 (10:37→20:43)
[2016-10-22] MEDS: METOPROLOL SUCC 25MG EXT REL TAB PO SCH (10:37)
[2016-10-22] MEDS: ENOXAPARIN 40 MG/0.4 ML SYR SQ SCH (10:38)
[2016-10-22 14:50] VITALS: BP 112/74; PULSE 80; TEMP 36.9; O2SAT 95
[2016-10-22] MEDS: DIGOXIN 0.125 MG TAB PO SCH (16:58)
[2016-10-22] MEDS: OXYCODONE HCL IR 5 MG TAB (IMMEDIATE RELEASE) PO PRN (16:58)
[2016-10-22] MEDS: WARFARIN SOD 5 MG TAB PO SCH (16:59)
--- NOTE | 2016-10-22 18:50 | Progress Note ---
Subjective Date of Service: Oct 22, 2016. Subjective Pt evaluation today including: conversation w/ patient, conversation w/ family , physical exam, chart review, lab review Problem List Medical Problems: (1) Closed right hip fracture Status: Acute Review of Systems Constitutional: No chills, No fatigue, No fever, No problem reported, No see HPI, No sweats, No weakness, No weight loss Eyes: No diplopia, No discharge, No eye pain, No problem reported, No redness, No see HPI, No worsening of vision ENT: No dental problems, No hearing loss, No nasal symptoms, No problem reported, No see HPI, No sore throat, No tinnitus, No trouble swallowing, No unusual epistaxis Respiratory: No cough, No dyspnea at rest, No dyspnea on exertion, No hemoptysis, No problem reported, No see HPI, No shortness of breath, No sputum, No wheezing Cardiac: No PND, No chest pain, No claudication, No edema, No orthopnea, No palpitations, No problem reported, No see HPI Abdomen: No GI bleeding, No constipation, No diarrhea, No nausea, No pain, No problem reported, No see HPI, No vomiting Musculoskeletal: No calf pain, No joint pain, No muscle pain, No problem reported, No see HPI, No swelling Neurologic: No balance problems, No memory loss, No numbness/tingling, No paralysis, No problem reported, No see HPI, No vertigo, No weakness Psychiatric: No anhedonism, No anxiety, No depression symptoms, No insomnia, No problem reported, No see HPI, No substance abuse Heme: No abnormal bleeding/bruising, No clotting problems, No night sweats, No problem reported, No see HPI, No swollen lymph nodes Endo: No excessive thirst, No excessive urination, No fatigue, No problem reported, No see HPI Skin: No bleeding, No color change, No itch, No new/changing skin lesions, No problem reported, No rash, No see HPI Medications Current Inpatient Medications Medications (Trade) Dose Ordered Sig/Christine Route Start Time Stop Time Status Last Admin Dose Admin Acetaminophen (Tylenol Tab) 650 mg Q4H PRN PO 10/18/16 11:45 11/17/16 11:44 Future Hold Magnesium Hydroxide (Milk Of Magnesia Susp) 30 ml Q6H PRN PO 10/18/16 11:45 11/17/16 11:44 10/21/16 08:57 30 ML Polyethylene (Miralax Powder Packet) 17 gm DAILY PRN PO 10/18/16 11:45 11/17/16 11:44 Morphine Sulfate (MoRPHine SULFATE INJ) 2 mg Q3HWA PRN IV 10/18/16 18:00 11/01/16 17:59 10/21/16 23:21 2 MG Carbidopa/Levodopa (Sinemet 25/ 100MG Tab) 1 tab QID PO 10/18/16 21:00 11/17/16 20:59 10/22/16 16:59 1 TAB Digoxin (Lanoxin Tab) 0.125 mg DAILY@1600 PO 10/19/16 16:00 11/18/16 15:59 10/22/16 16:58 0.125 MG Metoprolol Succinate (Toprol Xl Tab) 25 mg DAILY PO 10/19/16 09:00 11/18/16 08:59 10/22/16 10:37 25 MG Nitroglycerin (Nitrostat Tab) 0.4 mg UD PRN UT 10/18/16 17:45 11/17/16 17:44 Pantoprazole Sodium (Protonix Tab) 40 mg DAILY PO 10/19/16 09:00 11/18/16 08:59 10/22/16 10:37 40 MG Miscellaneous Medication (No Nsaids) 1 ea UD N/A 10/19/16 13:45 11/18/16 13:44 Oxycodone HCl (Roxicodone Immediate Rel Tab) 1-2 TABS FOR PAIN 1 TABLET ... Q4H PRN PO 10/19/16 13:45 11/02/16 13:44 10/22/16 16:58 10 MG Oxycodone/ Acetaminophen (Percocet 5-325mg Tab) 1-2 TABLETS 1 TABLET ... Q6H PRN PO 10/19/16 13:45 11/02/16 13:44 Future Hold Morphine Sulfate (MoRPHine SULFATE INJ) 1 mg Q1HWA PRN IV 10/19/16 13:45 11/02/16 13:44 Acetaminophen (Tylenol Tab) 1,000 mg Q8H PO 10/19/16 14:00 11/18/16 13:44 10/22/16 13:30 1,000 MG Bisacodyl (Dulcolax Supp) 10 mg DAILY PRN OK 10/19/16 13:45 11/18/16 13:44 Sodium Biphosphate/ Sodium Phosphate (Fleet Enema) 132 ml DAILY PRN OK 10/19/16 13:45 11/18/16 13:44 Senna (Senokot Tab) 17.2 mg HS PO 10/19/16 21:00 11/18/16 20:59 10/21/16 20:32 17.2 MG Docusate Sodium (coLACE CAP) 100 mg BID PO 10/19/16 21:00 11/18/16 20:59 10/22/16 10:37 100 MG Diphenhydramine HCl (Benadryl Cap) 25 mg Q8H PRN PO 10/19/16 13:45 11/18/16 13:44 Al Hydrox/Mg Hydrox/Simethicone (Maalox Max Susp) 15 ml Q4H PRN PO 10/19/16 13:45 11/18/16 13:44 Zolpidem Tartrate (Ambien Tab) 5 mg HSZ PRN PO 10/19/16 13:45 11/18/16 13:44 Multivitamins (Multivitamin Tab) 1 tab QAM PO 10/20/16 09:00 11/19/16 08:59 10/22/16 10:37 1 TAB Ondansetron HCl (Zofran Inj) 4 mg Q6H PRN IV 10/19/16 13:45 11/18/16 13:44 Ferrous Gluconate (Ferrous Gluconate Tab) 324 mg TIDM PO 10/19/16 17:45 11/18/16 17:44 10/22/16 13:28 324 MG Enoxaparin Sodium (Lovenox Inj) 40 mg QAM SQ 10/20/16 09:00 11/19/16 08:59 10/22/16 10:38 40 MG Warfarin Sodium (Coumadin Tab) 5 mg DAILY@16 PO 10/21/16 16:00 11/20/16 15:59 10/22/16 16:59 5 MG Objective Vital Signs Date Time Temp Pulse Resp B/P Pulse Ox O2 Delivery O2 Flow Rate FiO2 10/22/16 16:58 78 10/22/16 14:50 36.9 80 16 112/74 95 Room Air 10/22/16 08:05 Room Air 10/22/16 07:17 36.8 91 16 131/77 95 Room Air 10/22/16 00:00 Room Air 10/21/16 22:46 36.7 88 18 146/83 94 Room Air Physical Exam General Appearance: no apparent distress Eyes: normal inspection, PERRL, EOMI ENT: normal ENT inspection, hearing grossly normal Neck: supple Respiratory/Chest: chest non-tender, lungs clear, normal breath sounds, no respiratory distress, no accessory muscle use Cardiovascular: regular rate, rhythm, no edema, no gallop, no JVD, no murmur Abdomen: normal bowel sounds, non tender, soft, no organomegaly Extremities: normal range of motion, non-tender, normal inspection, no pedal edema 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, no motor/sensory deficits, alert, normal mood/affect Skin: normal color, warm/dry, no rash Laboratory Results Last 24 Hours Test 10/22/16 06:48 White Blood Count 11.43 K/uL Red Blood Count 3.51 M/uL Hemoglobin 11.5 g/dL Hematocrit 33.0 % Mean Corpuscular Volume 94.0 fL Mean Corpuscular Hemoglobin 32.8 pg Mean Corpuscular Hemoglobin Concent 34.8 g/dl Platelet Count 191 K/uL Mean Platelet Volume 11.6 fL Neutrophils (%) (Auto) 81.7 % Lymphocytes (%) (Auto) 8.1 % Monocytes (%) (Auto) 9.2 % Eosinophils (%) (Auto) 0.6 % Basophils (%) (Auto) 0.1 % Neutrophils # (Auto) 9.34 K/uL Lymphocytes # (Auto) 0.93 K/uL Monocytes # (Auto) 1.05 K/uL Eosinophils # (Auto) 0.07 K/uL Basophils # (Auto) 0.01 K/uL RDW Standard Deviation 44.6 fL RDW Coefficient of Variation 12.9 % Immature Granulocyte % (Auto) 0.3 % Immature Granulocyte # (Auto) 0.03 K/uL Sodium Level 136 mmol/L Potassium Level 4.0 mmol/L Chloride Level 102 mmol/L Carbon Dioxide Level 25 mmol/L Anion Gap 9.0 mmol/L Blood Urea Nitrogen 20 mg/dl Creatinine 0.77 mg/dl Est Creatinine Clear Calc Drug Dose 54.4 ml/min Estimated GFR () 84.5 Estimated GFR (Non- 72.9 BUN/Creatinine Ratio 26.5 Random Glucose 170 mg/dl Calcium Level 8.2 mg/dl Magnesium Level 2.2 mg/dl Assessment and Plan 80 years old lady with parkinsonism sustained a mechanical fall. osteoporotic Right intertrochanteric hip fracture from ground level fall in elderly female Orthopedic consult is appreciated S/P ORIF Right Displaced Intertrochanteric Hip Fracture w/ Trochanteric Nail POD # 0 A fib on coumadin given 10mg of vit K IV on admission repeat INR in am restarted Coumadin mean while continue Lovenox for DVT prophylaxis will start tomorrow lovenox full AC (currently on DVT prophylaxis), D/W orthopedic team continue Digoxin Has SOB of breath today and tenderness in lower Ext CXR showed CHF US lower Ext was negative for DVT DC IVF one dose of ethacrynate HTN continue B carey Parkinsonis continue home meds SLE continue home meds Elevated bilirubin, was normal on admission check US liver check total and direct bilirubin Remote Hx of DVT 30 years ago (was on coumadin for 6 months at that time as per patient) Full code
[2016-10-22 20:01] LABS: INR 1.5 (0.9-1.1); PROTHROMBIN TIME (PATIENT) 16.2 SECONDS (9.0-12.0)
[2016-10-22] MEDS: SENNA 8.6 MG TAB PO SCH (20:44)
[2016-10-22 23:38] VITALS: BP 107/67; PULSE 81; TEMP 36.5; O2SAT 98
[2016-10-23] MEDS: ACETAMINOPHEN 500 MG TAB PO SCH ×2 (05:46→14:01)
[2016-10-23 06:02] LABS: BASO % 0.4 %; BASO ABS # 0.04 K/uL (0-0.2); COMPLETE YES; EOS % 2.7 %; HEMATOCRIT 37.7 % (37-47); IG% 0.5 %; LYMPH % 17.1 %; LYMPH ABS # 1.79 K/uL (1.2-3.4); MEAN CELL VOLUME 96.2 fL (80-100); MEAN CORPUSCULAR HEMOGLOBIN 33.4 pg (25-34); MEAN CORPUSCULAR HGB CONC 34.7 g/dl (32-36); MEAN PLATELET VOLUME 11.8 fL (7.4-10.4); MONO % 9.4 %; NEUT % 69.9 %; PLATELET COUNT 221 K/uL (130-400); RED BLOOD COUNT 3.92 M/uL (4.2-5.4); WHITE BLOOD COUNT 10.48 K/uL (4.8-10.8)
[2016-10-23 06:39] LABS: BUN/CREATININE RATIO 28.1 (10-20); CALCIUM 8.5 mg/dl (8.5-10.1); CREATININE 0.81 mg/dl (0.60-1.20); MAGNESIUM 2.1 mg/dl (1.8-2.4); POTASSIUM 3.7 mmol/L (3.5-5.1)
[2016-10-23 06:42] LABS: ALB/GLOB RATIO 0.5 (0.9-2)
[2016-10-23 07:20] VITALS: BP_SYST 136; BP_SYST 187; BP_DIAS 103; BP_DIAS 78; PULSE 105; TEMP 36.7; O2SAT 94
--- NOTE | 2016-10-23 07:34 | DIAGNOSTIC IMAGING REPORT ---
BILIARY ULTRASOUND CLINICAL HISTORY: elevated bilirubin COMPARISON STUDY: 03/16/2016 FINDINGS: The pancreas appears normal as visualized. The liver demonstrates coarsened echotexture with a somewhat serrated serosal surface. Underlying cirrhosis must be considered. The gallbladder surgically absent. Common bile duct is mildly dilated measuring 8 mm. There is no right-sided hydronephrosis. IMPRESSION: 1. Surgically absent gallbladder 2. Cirrhotic morphology of the liver 3. Mildly dilated common bile duct measuring 8 mm Electronically signed by: Jose Francisco Ozuna M.D. 10/23/2016 7:32 AM Dictated Date/Time: 10/23/2016 7:30 AM
[2016-10-23] MEDS: OXYCODONE HCL IR 5 MG TAB (IMMEDIATE RELEASE) PO PRN ×2 (08:11→14:01)
[2016-10-23] MEDS: FERROUS GLUCONATE 324 MG TAB PO SCH ×2 (08:14→08:45)
[2016-10-23] MEDS: DOCUSATE SODIUM 100 MG CAP PO SCH (08:45)
[2016-10-23] MEDS: PANTOprazole SOD 40 MG TAB PO SCH (08:45)
[2016-10-23] MEDS: CARBIDOPA/LEVODOPA 25/100MG TAB PO SCH ×2 (08:45→12:50)
[2016-10-23] MEDS: MULTIVITAMIN TAB PO SCH (08:45)
[2016-10-23] MEDS: METOPROLOL SUCC 25MG EXT REL TAB PO SCH (08:45)
[2016-10-23] MEDS: ENOXAPARIN 40 MG/0.4 ML SYR SQ SCH (08:46)
--- NOTE | 2016-10-23 09:19 | Orthopedic Progress Note ---
Orthopedic Progress Note Date of Service Oct 23, 2016. Subjective Post OP Day: 4 Reports: feeling well Objective N/V intact, dressing C/D/I, toes mobile Date Time Temp Pulse Resp B/P Pulse Ox O2 Delivery O2 Flow Rate FiO2 10/23/16 07:20 36.7 105 20 187/103 94 Room Air 136/78 10/22/16 23:38 36.5 81 16 107/67 98 Room Air 10/22/16 19:00 Room Air 10/22/16 16:58 78 10/22/16 14:50 36.9 80 16 112/74 95 Room Air Laboratory Results 24 Hours: Test 10/22/16 19:44 10/23/16 05:25 Prothromb Time International Ratio 1.5 2.0 Prothrombin Time 16.2 SECONDS 22.0 SECONDS White Blood Count 10.48 K/uL Red Blood Count 3.92 M/uL Hemoglobin 13.1 g/dL Hematocrit 37.7 % Mean Corpuscular Volume 96.2 fL Mean Corpuscular Hemoglobin 33.4 pg Mean Corpuscular Hemoglobin Concent 34.7 g/dl Platelet Count 221 K/uL Mean Platelet Volume 11.8 fL Neutrophils (%) (Auto) 69.9 % Lymphocytes (%) (Auto) 17.1 % Monocytes (%) (Auto) 9.4 % Eosinophils (%) (Auto) 2.7 % Basophils (%) (Auto) 0.4 % Neutrophils # (Auto) 7.33 K/uL Lymphocytes # (Auto) 1.79 K/uL Monocytes # (Auto) 0.99 K/uL Eosinophils # (Auto) 0.28 K/uL Basophils # (Auto) 0.04 K/uL Assessment & Plan Assessment: POD #4 s/p ORIF right hip fx with trochanteric nail Plan: 1. Med management 2. DVT prophylaxis- Coumadin and Lovenox, SCDs, TEDs 3. PT/OT 4. D/C planning- per medicine, ortho to sign-off, pt to follow-up with Dr Espinosa ~ 2 weeks post-op Inhouse Planning Pain Management: Morphine, Oxy IR DVT Prophylaxis: TEDs, SCDs, Coumadin, Lovenox Discharge Planning Discharge Planning: uncertain
[2016-10-23] MEDS ORDERED: ETHACRYNATE SOD FOR INJ 50 MG VIAL IV STA (12:17)
[2016-10-23] MEDS ORDERED: DLCS PR (12:23)
[2016-10-23] MEDS ORDERED: FRRG PO (12:23)
[2016-10-23] MEDS ORDERED: AMB5 PO (12:24)
[2016-10-23] MEDS ORDERED: MRLP17X PO (12:24)
[2016-10-23] MEDS ORDERED: SENN-65 PO (12:24)
[2016-10-23] MEDS ORDERED: MOMLX PO (12:24)
[2016-10-23] MEDS ORDERED: OXYC-57 PO (12:24)
--- NOTE | 2016-10-23 12:25 | Discharge Instructions ---
Discharge Instructions Admission Admission Date: Oct 18, 2016 at 11:38 Admission Diagnosis: Hip Fracture. Discharge Care Plan - Problem: Medical Problems: (1) Closed right hip fracture Care Plan - Goal(s): Improve function Care Plan - Instructions: Recommended Home Diet: AHA Phase I (2gmNa/LoCho), Regular Provider Instructions: follow up with orthopedic physician as scheduled VTE Core Measure Inpt VTE Proph given/why not?: Warfarin (Coumadin) Edwin Mirza Recommendations: Call your doctor if: * Temperature above 101 degrees * Pain not relieved by pain medicine ordered * There is increased drainage or redness from any incision * You have any unanswered questions or concerns. Your Doctors Instructions noted above were prepared by provider Clifton Yates.
--- NOTE | 2016-10-23 12:36 | Discharge Summary ---
Discharge Summary Admission Date: Oct 18, 2016 at 11:38 Discharge Date: Oct 23, 2016 Discharge Disposition: group home facility Problems/Secondary Diagnoses: osteoporotic Right intertrochanteric hip fracture from ground level fall in elderly female A fib on coumadin SOB/ Diastolic CHF exacerbation HTN Parkinsonis SLE Elevated indirect bilirubin, possibly hemolysis from the trauma, needs to be followed up Remote Hx of DVT 30 years ago (was on coumadin for 6 months at that time as per patient) Cirrhotic appearance of the liver on US Immunizations: Have You Had Influenza Vaccine: Yes History of Tetanus Vaccine?: UTD History of Pneumococcal: Yes History of Hepatitis B Vaccine: No Medication Reconciliation New Medications: Senna/Docusate Sod (Senokot S) 1 Tab Tab 1 TAB PO BID for 30 Days, #60 TAB Bisacodyl (Bisac-Evac) 10 Mg Supp 10 MG ID DAILY PRN for Constipation for 30 Days, #30 SUPP prn 72 hours without bowel movement Ferrous Gluconate (Ferrous Gluconate) 324 Mg Tab 324 MG PO BIDM for 30 Days, #60 TAB Magnesium Hydroxide (Milk of Magnesia) 30 Ml Susp 30 ML PO Q6H PRN for Constipation for 30 Days, #30 Oxycodone/Acetaminophen 5MG/325MG (Percocet 5MG/325MG) Tab 1-2 TAB PO Q6H PRN for Pain for 30 Days, #30 TAB PAIN Polyethylene (Miralax) 17 Gm Pow 17 GM PO DAILY PRN for Constipation for 30 Days, #30 PKT Zolpidem Tartrate (Zolpidem Tartrate) 5 Mg Tab 5 MG PO HSZ PRN for Sleep for 30 Days, #30 TAB Continued Medications: Acetaminophen Tab (Tylenol) 325 Mg Tab 650 MG PO Q4 PRN for Pain, TAB Aspirin (Aspirin Ec) 81 Mg Tab 162 MG PO DAILY Bumetanide (Bumex) 0.5 Mg Tab 0.5 MG PO QAM Carbidopa/Levodopa (Sinemet 25MG/100MG) Tab 1 TAB PO QID, 0 Refills Digoxin (Digoxin) 0.125 Mg Tab 0.125 MG PO DAILY Metoprolol Succinate (Toprol Xl) 25 Mg Tab 25 MG PO DAILY, TAB Nitroglycerin (Nitrostat) 0.4 Mg Tab 0.4 MG UT PRN, BTL Nystatin (Topical) (Nystatin) 1 Pow Pow Pantoprazole (Protonix) 40 Mg Tab 40 MG PO DAILY, #30 TAB Warfarin Sodium (Coumadin) 2 Mg Tab 2 MG PO DAILY, TAB Discharge Exam Review of Systems: Constitutional: No chills, No fatigue, No fever, No problem reported, No sweats, No weakness, No weight loss Eyes: No diplopia, No discharge, No eye pain, No problem reported, No redness, No worsening of vision ENT: No dental problems, No hearing loss, No nasal symptoms, No problem reported, No sore throat, No tinnitus, No trouble swallowing, No unusual epistaxis Respiratory: + shortness of breath, No cough, No dyspnea at rest, No dyspnea on exertion, No hemoptysis, No problem reported, No sputum, No wheezing Cardiovascular: No PND, No chest pain, No claudication, No edema, No orthopnea, No palpitations, No problem reported Abdomen: No GI bleeding, No constipation, No diarrhea, No nausea, No pain, No problem reported, No vomiting Musculoskeletal: No calf pain, No joint pain, No muscle pain, No problem reported, No swelling Genitourinary - Female: No dysmenorrhea, No dysuria, No hematuria, No menorrhagia, No metrorrhagia, No , No problem reported, No rash, No urinary frequency, No urinary incontinence, No urinary retention, No urinary urgency, No vaginal bleeding, No vaginal discharge, No vaginal itching, No vulvodynia Neurologic: No balance problems, No memory loss, No numbness/tingling, No paralysis, No problem reported, No vertigo, No weakness Psychiatric: No anhedonism, No anxiety, No depression symptoms, No insomnia , No problem reported, No substance abuse Endocrine: No excessive thirst, No excessive urination, No fatigue, No problem reported Hematologic / Lymphatic: No abnormal bleeding/bruising, No clotting problems , No night sweats, No problem reported, No swollen lymph nodes Integumentary: No bleeding, No color change, No itch, No new/changing skin lesions, No problem reported, No rash Hospital Course 80 years old lady with parkinsonism sustained a mechanical fall. she was found to have osteoporotic Right intertrochanteric hip fracture from ground level fall in elderly female Orthopedic consult is appreciated S/P ORIF Right Displaced Intertrochanteric Hip Fracture w/ Trochanteric Nail , procedure went uneventful she required IVF hydration which later on threw her into diastolic CHF exacerbation, received ethacrynate IV and diuresed well as far as her A fib was on coumadin given 10mg of vit K IV on admission Repeat INR was 1.3 prior to the surgery now restarted Coumadin bridged with Lovenox continued Digoxin complained of some tenderness in lower Ext US lower Ext was negative for DVT HTN continue B carey Parkinsonis continue home meds SLE continue home meds she was found to have Elevated bilirubin, was normal on admission checked US liver, showed abscent Gall bladder, CBD of 8mm and cirrhotic appearance of liver checked direct bilirubin, which was low, likely she has hemolysis from fall/ trauma/hematoma needs to be followed up as an out patient she was found to be stable today for discharge to rehab This includes examination of the patient, discharge planning, medication reconciliation, and communication with other providers. Discharge Instructions Please refer to the electronic Patient Visit Report (Discharge Instructions) for additional information.
[2016-10-23] MEDS ORDERED: [UNRECOGNIZED DRUG - OTHER] IV SCH (12:45)
[2016-10-23] MEDS ORDERED: SODIUM CHLORIDE 0.9% IV SCH (12:45)
[2016-10-23 13:00] VITALS: BP 140/85; PULSE 90; O2SAT 96
[2016-10-23 14:43] VITALS: BP 140/85; PULSE 90; TEMP 36.7; O2SAT 96
[2016-10-23 15:07] VITALS: BP 119/72; PULSE 81; TEMP 36.7; O2SAT 96
[2017-06-22] MEDS ORDERED: ACET-24 PO (10:45)
[2017-06-22] MEDS ORDERED: CLB100 PO (10:45)
[2017-06-22] MEDS ORDERED: LDDP5 TD (10:45)
[2017-06-22] MEDS ORDERED: TRAM-10 PO (10:45)
== END 2016-10-23 16:00 | DRG 480 ==
LOC: ENRESERV → ENRESERVTM → ENRESERVDT → EDBD 08:30 → C.EDB 08:32 → C.MSW 11:38
PROVIDERS: ADMIT Internal Medicine; ATTEND Internal Medicine
PROC: 0QS604Z Reposition Right Upper Femur with Internal Fixation Device, Open Approach (ICD-10-PCS; principal; 2016-10-19 09:30)
DX: M80.051A Age-related osteoporosis with current pathological fracture, right femur, initial encounter for fracture (principal); I50.33 Acute on chronic diastolic (congestive) heart failure; W18.39XA Other fall on same level, initial encounter; G20 Parkinson's disease; I10 Essential (primary) hypertension; I48.2 Chronic atrial fibrillation; K74.60 Unspecified cirrhosis of liver; M32.9 Systemic lupus erythematosus, unspecified; M19.90 Unspecified osteoarthritis, unspecified site; Z86.718 Personal history of other venous thrombosis and embolism; Z90.49 Acquired absence of other specified parts of digestive tract; Z79.01 Long term (current) use of anticoagulants; Z79.82 Long term (current) use of aspirin; Z79.899 Other long term (current) drug therapy

== ENCOUNTER → 2017-03-06 | Outpatient (CLI) | payer OTHER, MEDICARE ==
[~2017-03-06] MED LIST changes: +ACET-24 PO; +AMB5 PO; -CHOL1000 PO; +CLB100 PO; -DIGO0.1219 PO; +DLCS PR; +DOCU100C31 PO; +FERR325T18 PO; +FRRG PO; +LDDP5 TD; +LNX125 PO; +METO-478 PO; -METO1TAB31 PO; +MOMLX PO; +MRLP17X PO; -MULT-190 PO; -NYST100098 TOP; +NYST1POW7; +OXYC-57 PO; +POLY335019 PO; +POTA10CA28 PO; -REDCAP2 PO; +TRAM-10 PO; +ZNTT/150 PO
[2017-03-06 12:47] LABS: INR 2.6 (0.9-1.1); PROTHROMBIN TIME (PATIENT) 28.8 SECONDS (9.0-12.0)
== END | disposition home or self-care (01) ==
LOC: C.LAB 10:12
PROVIDERS: ATTEND Family Medicine
DX: Z51.81 Encounter for therapeutic drug level monitoring (principal); Z79.01 Long term (current) use of anticoagulants

== ENCOUNTER → 2017-03-21 | Outpatient (CLI) | payer OTHER, MEDICARE ==
--- NOTE | 2017-03-21 10:04 | DIAGNOSTIC IMAGING REPORT ---
ABDOMINAL ULTRASOUND, RIGHT UPPER QUADRANT HISTORY: Hepatic cirrhosis CIRRHOSIS. COMPARISON: 10/23/2016 FINDINGS: Pancreas: The pancreas demonstrates a normal echotexture. Liver: Cirrhosis. Heterogeneous internal architecture. No change in the prior exam. Gallbladder: Surgically removed. CBD: 6 mm Right kidney: 2 cm cyst. No evidence for hydronephrosis. IMPRESSION: 1. Hepatic cirrhosis unchanged from the prior study. 2. Prior cholecystectomy. 3. 2 cm right renal cyst. Electronically signed by: Nguyễn Rg M.D. 03/21/2017 10:03 AM Dictated Date/Time: 03/21/2017 10:01 AM
== END | disposition home or self-care (01) ==
LOC: C.ULTRBC 08:48
PROVIDERS: ATTEND Internal Medicine Gastroenterology
DX: K74.60 Unspecified cirrhosis of liver (principal); N28.1 Cyst of kidney, acquired

== ENCOUNTER → 2017-04-11 | Outpatient (CLI) | payer OTHER, MEDICARE ==
[~2017-04-11] MED LIST changes: -METO-478 PO; +METO1TAB31 PO
[2017-04-11 12:23] LABS: HEMATOCRIT 42.5 % (37-47); MEAN CELL VOLUME 97.5 fL (80-100); MEAN CORPUSCULAR HEMOGLOBIN 33.3 pg (25-34); MEAN CORPUSCULAR HGB CONC 34.1 g/dl (32-36); MEAN PLATELET VOLUME 12.1 fL (7.4-10.4); PLATELET COUNT 238 K/uL (130-400); RED BLOOD COUNT 4.36 M/uL (4.2-5.4); WHITE BLOOD COUNT 5.94 K/uL (4.8-10.8)
[2017-04-11 12:51] LABS: ALT/SGPT 13 U/L (12-78); BLOOD UREA NITROGEN 18 mg/dl (7-18); BUN/CREATININE RATIO 20.9 (10-20); CALCIUM 9.5 mg/dl (8.5-10.1); CARBON DIOXIDE 30 mmol/L (21-32); CHLORIDE 98 mmol/L (98-107); CREATININE 0.87 mg/dl (0.60-1.20); GLUCOSE 82 mg/dl (70-99); POTASSIUM 3.8 mmol/L (3.5-5.1); SODIUM 133 mmol/L (136-145)
[2017-04-11 12:54] LABS: ALB/GLOB RATIO 0.7 (0.9-2); ALKALINE PHOSPHATASE 159 U/L (45-117); AST/SGOT 32 U/L (15-37)
[2017-04-12 10:19] LABS: AFP TUMOR MARKER SERUM 3.8 NG/ML (<6.1)
== END | disposition home or self-care (01) ==
LOC: C.LAB 10:27
PROVIDERS: ATTEND Internal Medicine Gastroenterology
DX: K75.4 Autoimmune hepatitis (principal); K74.60 Unspecified cirrhosis of liver; D68.59 Other primary thrombophilia

== ENCOUNTER 2017-06-20 05:15 | Inpatient (IN) | payer OTHER, MEDICARE ==
[~2017-06-20] VITALS: Ht 162.6 cm; Wt 67.2 kg
[~2017-06-20 05:15] MED LIST changes: -ACET-24 PO; -CLB100 PO; -DOCU100C31 PO; -FERR325T18 PO; -LDDP5 TD; -POLY335019 PO; -POTA10CA28 PO; -TRAM-10 PO; -ZNTT/150 PO
[2017-06-20] MEDS ORDERED: MoRPHine SULFATE 4 MG/ML 1 ML CARP\\VIAL IV STA (05:25)
[2017-06-20] MEDS ORDERED: ONDANSETRON INJ 2 MG/ML 2 ML VIAL IV STA (05:25)
--- NOTE | 2017-06-20 05:27 | EMERGENCY ROOM VISIT NOTE ---
History Report prepared by Harman: Vira Lewis Under the Supervision of: Dr. Kun Estrella M.D. First contact with patient: 05:18 Chief Complaint: FALL Stated Complaint: FALL/BACK PAIN History of Present Illness The patient is an 81 year old female who presents to the Emergency Room with complaints of a fall that occurred yesterday. She was brought to the ED via EMS. The patient reports yesterday afternoon, as she went to turn off her TV, she lost her balance and fell. Ever since the fall, she has experienced low back pain. Tramadol has provided minimal relief. This morning, her pain worsened , so she called EMS. She did not hit her head or neck during the fall. She denies any loss of consciousness. She also denies any abdominal pain. The patient does take daily Coumadin. Source of History: patient Onset: yesterday afternoon Position: other (global) Quality: other (fall) Timing: resolved Associated Symptoms: No LOC, No abdominal pain Review of Systems See HPI for pertinent positives & negatives. A total of 10 systems reviewed and were otherwise negative. Past Medical & Surgical Medical Problems: (1) Hip fracture (2) hip fracture (3) Parkinson's disease (4) Systemic lupus erythematosus Surgical Problems: (1) History of cholecystectomy Family History Heart disease Social History Smoking Status: Never Smoker Alcohol Use: none Drug Use: none Marital Status: Housing Status: lives with family Occupation Status: retired Current/Historical Medications Scheduled Aspirin (Aspirin Ec), 162 MG PO QAM Bumetanide (Bumex), 0.5 MG PO QAM Carbidopa/Levodopa (Sinemet 25MG/100MG), 1 TAB PO QID Digoxin (Digoxin), 0.125 MG PO DAILY Docusate Sodium (Docusate Sodium), 100 MG PO BID Ferrous Gluconate (Ferrous Gluconate), 324 MG PO BIDM Metoprolol Succinate (Toprol Xl), 25 MG PO HS Nitroglycerin (Nitrostat), 0.4 MG UT PRN Potassium Chloride (Micro-K Ext Rel), 10 MEQ PO QAM Ranitidine (Zantac), 150 MG PO BID Warfarin Sodium (Coumadin), 2 MG PO 6XWK Warfarin Sodium (Coumadin), 1 MG PO ONLY ON TUESDAYS Scheduled PRN Acetaminophen Tab (Tylenol), 650 MG PO Q4 PRN for Pain Polyethylene Glycol 3350 (Miralax), 17 GM PO DAILY PRN for Constipation Tramadol (Ultram), 50 MG PO Q6H PRN for Pain Allergies Coded Allergies: Azathioprine (Verified Allergy, Unknown, gi upset, 06/20/17) gmg Furosemide (Verified Allergy, Unknown, joint pain,H/A, 06/20/17) gmg HMG-CoA-R Inhibitors (Verified Allergy, Unknown, _, 06/20/17) Ibandronic Acid (Verified Allergy, Unknown, bleeding, 06/20/17) gmg Statins (Verified Allergy, Unknown, unknown, 06/20/17) gmg Ursodiol (Verified Adverse Reaction, Unknown, emesis, 06/20/17) gmg Physical Exam Vital Signs Date Time Temp Pulse Resp B/P (MAP) Pulse Ox O2 Delivery O2 Flow Rate FiO2 06/20/17 07:19 81 16 150/91 90 Room Air 06/20/17 06:25 90 20 149/104 93 Room Air 06/20/17 05:26 36.9 93 205/113 95 Room Air Physical Exam GENERAL: Patient is elderly appearing and in moderate distress. HEENT: No acute trauma, normocephalic atraumatic, mucous membranes moist, no nasal congestion, no scleral icterus. NECK: No stridor, no adenopathy, no meningismus, trachea is midline. LUNGS: No dyspnea. Clear to auscultation and equal bilaterally. No wheeze, no rhonchi. HEART: Regular rate and rhythm. No murmurs, rubs, gallops appreciated. ABDOMEN: Soft, nontender, bowel sounds positive, no masses appreciated, no peritonitis. BACK: Mild TTP over upper lumbar spine, otherwise no midline tenderness, no CVA tenderness EXTREMITIES: Normal motion all extremities, no cyanosis, no edema. NEUROLOGIC: Alert and oriented, no acute motor or sensory deficits, no focal weakness, cranial nerves grossly intact. SKIN: No rash, no jaundice, no diaphoresis. Medical Decision & Procedures ER Provider Diagnostic Interpretation: Radiology results and stated below per my review and radiologist interpretation: CT HEAD WITHOUT CONTRAST (CT) CLINICAL HISTORY: Head trauma. Head pain. Patient on Coumadin. COMPARISON STUDY: No previous studies for comparison. TECHNIQUE: Axial CT of the brain is performed from the vertex to the skull base. IV contrast was not administered for this examination. A dose lowering technique was utilized adhering to the principles of ALARA. CT DOSE: 1228.53 mGy.cm FINDINGS: No intra or extra-axial mass lesions are visualized. There is no CT evidence of acute cortical infarction. There is no evidence of midline shift. There is no acute hemorrhage. No calvarial fractures are visualized. There are moderate white matter hypodensities likely on a small vessel basis. There is no evidence of pathologic ventricular dilatation. There is no evidence of acute sinusitis IMPRESSION: No acute intracranial findings Electronically signed by: Jose Francisco Ozuna M.D. 06/20/2017 6:[address] PELVIS NO IV/ORAL CONT (CT) CT DOSE: CLINICAL HISTORY: Pelvic pain status post trauma TECHNIQUE: Helical images were acquired in the transverse plane. Sagittal and coronal reformatted images were acquired. A dose lowering technique was utilized adhering to the principles of ALARA. COMPARISON STUDY: Conventional radiographic study dated 10/18/2016, CT scan performed March 2014 FINDINGS: There is a small fat-containing umbilical hernia. There is a small amount of free fluid within the pelvis. There is extensive colonic diverticulosis. There is L4-5 spinal stenosis. There is a 25 mm rounded structure visualized on the superiormost images posterior to the colon. This likely represents visualization of a renal cyst. This slightly exceeds water attenuation. The bones are osteopenic. There are postsurgical changes of a right hip pinning. There is no SI joint diastases. There is no symphysis diastases. No acute fractures are visualized. IMPRESSION: Osteopenia. Postsurgical changes involving the right hip. No acute fractures. Electronically signed by: Jose Francisco Ozuna M.D. 06/20/2017 7:[address] L SPINE: Compared to 03/24/2014. Compression deformity of the L1 vertebral body is new since 2013 with approximately 30% loss of height and 3 mm retropulsion. Degenerative changes with varying degrees of central canal and neuroforaminal stenosis. Grade 1 anterolisthesis of L5 on S1. Asymmetric appearance of the psoas muscle with left larger than right. Renal hypodensities, possible cysts. Punctate nonobstructing right renal calculus. Radiologist: Sarah Abreu M.D. Laboratory Results 06/20/17 06:30 Red Blood Count 4.55, Mean Corpuscular Volume 98.0, Mean Corpuscular Hemoglobin 34.5, Mean Corpuscular Hemoglobin Concent 35.2, Mean Platelet Volume 11.4, Neutrophils (%) (Auto) 80.4, Lymphocytes (%) (Auto) 9.4, Monocytes (%) (Auto) 9.1, Eosinophils (%) (Auto) 0.6, Basophils (%) (Auto) 0.2, Neutrophils # (Auto) 10.19, Lymphocytes # (Auto) 1.19, Monocytes # (Auto) 1.15, Eosinophils # (Auto) 0.07, Basophils # (Auto) 0.03 06/20/17 06:30 Test 06/20/17 06:30 White Blood Count 12.67 K/uL (4.8-10.8) Red Blood Count 4.55 M/uL (4.2-5.4) Hemoglobin 15.7 g/dL (12.0-16.0) Hematocrit 44.6 % (37-47) Mean Corpuscular Volume 98.0 fL (80-100) Mean Corpuscular Hemoglobin 34.5 pg (25-34) Mean Corpuscular Hemoglobin Concent 35.2 g/dl (32-36) Platelet Count 201 K/uL (130-400) Mean Platelet Volume 11.4 fL (7.4-10.4) Neutrophils (%) (Auto) 80.4 % Lymphocytes (%) (Auto) 9.4 % Monocytes (%) (Auto) 9.1 % Eosinophils (%) (Auto) 0.6 % Basophils (%) (Auto) 0.2 % Neutrophils # (Auto) 10.19 K/uL (1.4-6.5) Lymphocytes # (Auto) 1.19 K/uL (1.2-3.4) Monocytes # (Auto) 1.15 K/uL (0.11-0.59) Eosinophils # (Auto) 0.07 K/uL (0-0.5) Basophils # (Auto) 0.03 K/uL (0-0.2) RDW Standard Deviation 45.9 fL (36.4-46.3) RDW Coefficient of Variation 12.8 % (11.5-14.5) Immature Granulocyte % (Auto) 0.3 % Immature Granulocyte # (Auto) 0.04 K/uL (0.00-0.02) Prothrombin Time 24.5 SECONDS (9.0-12.0) Prothromb Time International Ratio 2.2 (0.9-1.1) Activated Partial Thromboplast Time 35.8 SECONDS (21.0-31.0) Partial Thromboplastin Ratio 1.4 Anion Gap 6.0 mmol/L (3-11) Est Creatinine Clear Calc Drug Dose 53.5 ml/min Estimated GFR () 82.6 Estimated GFR (Non- 71.3 BUN/Creatinine Ratio 23.1 (10-20) Calcium Level 8.9 mg/dl (8.5-10.1) Magnesium Level 2.1 mg/dl (1.8-2.4) Total Creatine Kinase 68 U/L (26-192) Laboratory results as reviewed by me. Medications Administered Medications (Trade) Dose Ordered Sig/Christine Route Start Time Stop Time Status Last Admin Dose Admin Morphine Sulfate (MoRPHine SULFATE INJ) 4 mg NOW STAT IV 06/20/17 05:25 06/20/17 05:27 DC 06/20/17 05:59 4 MG Ondansetron HCl (Zofran Inj) 4 mg NOW STAT IV 06/20/17 05:25 06/20/17 05:27 DC 06/20/17 05:56 4 MG ED Course 0519: The patient was evaluated in room A9. A complete history and physical exam was performed. 0525: Zofran 4 mg IV, Morphine Sulfate 4 mg IV. 0655: I reevaluated the patient. I discussed with her and her family the plan. She declines any more pain medicine but reports she is in too much pain to move. 0732: I discussed the patients case with Hunter Paez and [facility]. He states she will need an LSO brace follow up with [facility] within the week. Medical Decision 81 yr old female with fall yesterday afternoon. Since sitting in wheelchair with increasing low back pain. Unable to ambulate/transfer due to pain despite Tramadol use. Arrives via ems. There is TTP over upper lumbar spine. No neuro deficits. Rest of exam benign. On coumadin but denies head/neck injury nor pain. Too much back discomfort to get Xrays thus as getting CT head went forward with lumbar and pelvis CTs. CT head/pelvis negative. L1 Compression deformity with mild 3 mm retropulsion. Discussion with [facility] who advise: LSO brace in next 24 hours, 1 week Ortho follow up, and further imaging if neurologic compromise. Patient unable to go home due to ambulatory pain and fact she is already deconditioned. Will need rehab thus will attempt placement at [facility]. Labs unremarkable other than mild WBC elevation with no infectious symptoms and thus I feel this is more stress related. INR therapeutic. Signed out to Dr Aguirre awaiting placement. Head Trauma GCS Score: 15 Medication Reconcilliation Current Medication List: was personally reviewed by me Blood Pressure Screening Patient's blood pressure: Elevated blood pressure Blood pressure disposition: Elevated BP felt to be situational Consults Time Called: [phone] Consulting Physician: Hunter Paez and [facility] Returned Call: 07 I discussed the patients case with Hunter Paez and [facility]. He states she will need an LSO brace follow up with [facility] within the week. Impression Primary Impression: Fall Additional Impressions: Lumbar compression fracture Ambulatory dysfunction Scribe Attestation The scribe's documentation has been prepared under my direction and personally reviewed by me in its entirety. I confirm that the note above accurately reflects all work, treatment, procedures, and medical decision making performed by me. Departure Information Referrals Sangeeta Medellin D.O. (PCP) Patient Instructions My [facility] Health Problem Qualifiers
[2017-06-20] MEDS ORDERED: POLY335019 PO (05:46)
[2017-06-20] MEDS ORDERED: WARF2TAB PO (05:46)
[2017-06-20] MEDS ORDERED: ZNTT/150 PO (05:46)
[2017-06-20] MEDS ORDERED: DOCU100C31 PO (05:46)
[2017-06-20] MEDS ORDERED: FERR325T18 PO (05:46)
[2017-06-20] MEDS ORDERED: TRAM-10 PO (05:46)
[2017-06-20] MEDS ORDERED: POTA10CA28 PO (05:46)
--- NOTE | 2017-06-20 06:43 | DIAGNOSTIC IMAGING REPORT ---
CT HEAD WITHOUT CONTRAST (CT) CLINICAL HISTORY: Head trauma. Head pain. Patient on Coumadin. COMPARISON STUDY: No previous studies for comparison. TECHNIQUE: Axial CT of the brain is performed from the vertex to the skull base. IV contrast was not administered for this examination. A dose lowering technique was utilized adhering to the principles of ALARA. CT DOSE: 1228.53 mGy.cm FINDINGS: No intra or extra-axial mass lesions are visualized. There is no CT evidence of acute cortical infarction. There is no evidence of midline shift. There is no acute hemorrhage. No calvarial fractures are visualized. There are moderate white matter hypodensities likely on a small vessel basis. There is no evidence of pathologic ventricular dilatation. There is no evidence of acute sinusitis IMPRESSION: No acute intracranial findings Electronically signed by: Jose Francisco Ozuna M.D. 06/20/2017 6:42 AM Dictated Date/Time: 06/20/2017 6:41 AM
[2017-06-20 06:47] LABS: BASO % 0.2 %; BASO ABS # 0.03 K/uL (0-0.2); COMPLETE YES; EOS % 0.6 %; HEMATOCRIT 44.6 % (37-47); IG% 0.3 %; LYMPH % 9.4 %; LYMPH ABS # 1.19 K/uL (1.2-3.4); MEAN CORPUSCULAR HEMOGLOBIN 34.5 pg (25-34); MEAN CORPUSCULAR HGB CONC 35.2 g/dl (32-36); MEAN PLATELET VOLUME 11.4 fL (7.4-10.4); MONO % 9.1 %; NEUT % 80.4 %; PLATELET COUNT 201 K/uL (130-400); RED BLOOD COUNT 4.55 M/uL (4.2-5.4); WHITE BLOOD COUNT 12.67 K/uL (4.8-10.8)
[2017-06-20 07:05] LABS: BUN/CREATININE RATIO 23.1 (10-20); CALCIUM 8.9 mg/dl (8.5-10.1); CREATININE 0.78 mg/dl (0.60-1.20); MAGNESIUM 2.1 mg/dl (1.8-2.4)
[2017-06-20 07:10] LABS: INR 2.2 (0.9-1.1); PARTIAL THROMBOPLASTIN RATIO 1.4; PROTHROMBIN TIME (PATIENT) 24.5 SECONDS (9.0-12.0)
--- NOTE | 2017-06-20 07:20 | DIAGNOSTIC IMAGING REPORT ---
CT PELVIS NO IV/ORAL CONT (CT) CT DOSE: CLINICAL HISTORY: Pelvic pain status post trauma TECHNIQUE: Helical images were acquired in the transverse plane. Sagittal and coronal reformatted images were acquired. A dose lowering technique was utilized adhering to the principles of ALARA. COMPARISON STUDY: Conventional radiographic study dated 10/18/2016, CT scan performed March 2014 FINDINGS: There is a small fat-containing umbilical hernia. There is a small amount of free fluid within the pelvis. There is extensive colonic diverticulosis. There is L4-5 spinal stenosis. There is a 25 mm rounded structure visualized on the superiormost images posterior to the colon. This likely represents visualization of a renal cyst. This slightly exceeds water attenuation. The bones are osteopenic. There are postsurgical changes of a right hip pinning. There is no SI joint diastases. There is no symphysis diastases. No acute fractures are visualized. IMPRESSION: Osteopenia. Postsurgical changes involving the right hip. No acute fractures. Electronically signed by: Jose Francisco Ozuna M.D. 06/20/2017 7:19 AM Dictated Date/Time: 06/20/2017 7:02 AM
--- NOTE | 2017-06-20 07:42 | DIAGNOSTIC IMAGING REPORT ---
LUMBAR SPINE WITHOUT CLINICAL HISTORY: Fall. Lumbar back pain. COMPARISON STUDY: Lumbar spine radiographs July 23, 2013. TECHNIQUE: Axial images of the lumbar spine were obtained without IV contrast. Sagittal and coronal reconstructions were viewed. FINDINGS: There is grade I anterolisthesis of L4 and L5 and L5 on S1. Note is made of a moderate L1 compression fracture with 30% loss of vertebral body height. There is minimal retropulsion. This is likely acute. No additional lumbar spine fractures are present. Several hypodense right renal lesions are suboptimally assessed on this exam but measure water attenuation likely reflect cysts. The sacroiliac joints are intact. There is asymmetric atrophy of the right psoas muscle. There is mild multilevel degenerative disc disease and moderate multilevel facet arthrosis. IMPRESSION: 1. Moderate L1 compression fracture with 30% loss of vertebral body height and minimal retropulsion. Fracture is likely acute to subacute. 2. No additional acute lumbar spine fractures. 3. Asymmetric atrophy of the right psoas muscle. Electronically signed by: Conrad Can M.D. 06/20/2017 7:41 AM Dictated Date/Time: 06/20/2017 7:32 AM
[2017-06-20] MEDS ORDERED: CARBIDOPA/LEVODOPA 25/100MG TAB PO ONE (13:00)
[2017-06-20] MEDS ORDERED: TRAMADOL HCL 50 MG TAB PO ONE (13:30)
--- NOTE | 2017-06-20 14:01 | EMERGENCY ROOM VISIT NOTE ---
ED Visit Note First contact with patient: 08:27 81-year-old female signed off to me at change of shift from Dr. Estrella. The patient has a L1 compression fracture. She has significant pain with any ambulation. We were awaiting authorization for transfer to [facility] but they declined admission for today. I discussed further care with Dr. Knapp who will evaluate for admission here. Impression: L1 Compression Fracture
[2017-06-20] MEDS ORDERED: LIDODERM (LIDOCAINE) PATCH 5% TD ONE (14:12)
[2017-06-20] MEDS ORDERED: ONDANSETRON INJ 2 MG/ML 2 ML VIAL IV PRN (14:15)
[2017-06-20] MEDS ORDERED: ACETAMINOPHEN 325 MG TAB PO PRN ×2 (14:15)
[2017-06-20] MEDS ORDERED: MoRPHine SULFATE 2 MG/ML CARP IV PRN (14:15)
[2017-06-20] MEDS ORDERED: NITROGLYCERIN 0.4 MG SL PER TAB CHARGE UT PRN (14:15)
[2017-06-20 14:24] VITALS: O2SAT 93; Ht 162.6 cm; Wt 67.2 kg
--- NOTE | 2017-06-20 14:25 | History and Physical ---
History & Physical Date & Time of Service: Jun 20, 2017 at 14:09 Chief Complaint: Fall/Back Pain Primary Care Physician: Sangeeta Medellin D.O. History of Present Illness Source: patient Pt is an 81 yo female who presents to the ER with complaints of a fall that occurred yesterday. Pt reports she was bending over to turn off the tv and slipped and fell on her back. Pt denies any preceeding symptoms prior to the fall including chest pain, shortness of breath, palpitations, or any recent illness. Pt was found by her son at home. Pt denies any LOC, head trauma. Pt ambulates at home with a walker and has a hx of parkinsonism. She was brought to the ED via EMS due to intractable lower back pain in which tramadol provided minimal relief. Pt awaiting availability of a bed at [facility] at this time. Past Medical/Surgical History Medical Problems: (1) Parkinson's disease Status: Chronic (2) Systemic lupus erythematosus Status: Chronic Surgical Problems: (1) History of cholecystectomy Status: Resolved Family History Heart disease Social History Smoking Status: Never Smoker Smokeless Tobacco Use: No Alcohol Use: none Drug Use: none Marital Status: Occupational Status: retired Immunizations History of Influenza Vaccine: Yes History of Tetanus Vaccine?: UTD History of Pneumococcal: Yes History of Hepatitis B Vaccine: No Multi-Drug Resistant Organisms History of MDRO: No Allergies Coded Allergies: Azathioprine (Verified Allergy, Unknown, gi upset, 06/20/17) gmg Furosemide (Verified Allergy, Unknown, joint pain,H/A, 06/20/17) gmg HMG-CoA-R Inhibitors (Verified Allergy, Unknown, _, 06/20/17) Ibandronic Acid (Verified Allergy, Unknown, bleeding, 06/20/17) gmg Statins (Verified Allergy, Unknown, unknown, 06/20/17) gmg Ursodiol (Verified Adverse Reaction, Unknown, emesis, 06/20/17) gmg Home Medications Scheduled Aspirin (Aspirin Ec), 162 MG PO QAM Bumetanide (Bumex), 0.5 MG PO QAM Carbidopa/Levodopa (Sinemet 25MG/100MG), 1 TAB PO QID Digoxin (Digoxin), 0.125 MG PO DAILY Docusate Sodium (Docusate Sodium), 100 MG PO BID Ferrous Gluconate (Ferrous Gluconate), 324 MG PO BIDM Metoprolol Succinate (Toprol Xl), 25 MG PO HS Nitroglycerin (Nitrostat), 0.4 MG UT PRN Potassium Chloride (Micro-K Ext Rel), 10 MEQ PO QAM Ranitidine (Zantac), 150 MG PO BID Warfarin Sodium (Coumadin), 2 MG PO [id number] Warfarin Sodium (Coumadin), 1 MG PO ONLY ON TUESDAYS Scheduled PRN Acetaminophen Tab (Tylenol), 650 MG PO Q4 PRN for Pain Polyethylene Glycol 3350 (Miralax), 17 GM PO DAILY PRN for Constipation Tramadol (Ultram), 50 MG PO Q6H PRN for Pain Review of Systems Constitutional: No fever, No chills, No sweats, No weight loss, No weakness ENT: No unusual epistaxis, No nasal symptoms, No sore throat, No tinnitus Respiratory: No cough, No sputum, No wheezing, No shortness of breath, No dyspnea on exertion Cardiovascular: No chest pain, No orthopnea, No PND, No edema Abdomen: No pain, No nausea, No vomiting, No diarrhea Musculoskeletal: + joint pain, + muscle pain, No swelling, No calf pain Genitourinary - Female: No dysuria, No urinary frequency, No urinary urgency, No urinary incontinence Psychiatric: No depression symptoms, No anhedonism, No anxiety, No insomnia Endocrine: No fatigue, No excessive thirst Integumentary: No rash, No itch Physical Exam Vital Signs Date Time Temp Pulse Resp B/P (MAP) Pulse Ox O2 Delivery O2 Flow Rate FiO2 06/20/17 12:38 75 18 147/77 93 Room Air 06/20/17 07:19 81 16 150/91 90 Room Air 06/20/17 06:25 90 20 149/104 93 Room Air 06/20/17 05:26 36.9 93 205/113 95 Room Air General Appearance: WD/WN, + mild distress Head: normocephalic, atraumatic Eyes: normal inspection, PERRL, EOMI, sclerae normal Neck: supple, no adenopathy, thyroid normal, no JVD Respiratory/Chest: chest non-tender, lungs clear, normal breath sounds, no respiratory distress Cardiovascular: no edema, no gallop, no JVD, no murmur Abdomen/GI: normal bowel sounds, non tender, soft, no organomegaly Extremities/Musculoskelatal: normal inspection, no calf tenderness, normal capillary refill, no pedal edema Neurologic/Psych: no motor/sensory deficits, alert, normal mood/affect, normal reflexes, oriented x 3 Skin: normal color, warm/dry, no rash Lymphatic: no adenopathy Diagnostics Laboratory Results Results Past 24 Hours Test 06/20/17 06:30 Range/Units White Blood Count 12.67 4.8-10.8 K/uL Red Blood Count 4.55 4.2-5.4 M/uL Hemoglobin 15.7 12.0-16.0 g/dL Hematocrit 44.6 37-47 % Mean Corpuscular Volume 98.0 80-100 fL Mean Corpuscular Hemoglobin 34.5 25-34 pg Mean Corpuscular Hemoglobin Concent 35.2 32-36 g/dl Platelet Count 201 130-400 K/uL Mean Platelet Volume 11.4 7.4-10.4 fL Neutrophils (%) (Auto) 80.4 % Lymphocytes (%) (Auto) 9.4 % Monocytes (%) (Auto) 9.1 % Eosinophils (%) (Auto) 0.6 % Basophils (%) (Auto) 0.2 % Neutrophils # (Auto) 10.19 1.4-6.5 K/uL Lymphocytes # (Auto) 1.19 1.2-3.4 K/uL Monocytes # (Auto) 1.15 0.11-0.59 K/uL Eosinophils # (Auto) 0.07 0-0.5 K/uL Basophils # (Auto) 0.03 0-0.2 K/uL RDW Standard Deviation 45.9 36.4-46.3 fL RDW Coefficient of Variation 12.8 11.5-14.5 % Immature Granulocyte % (Auto) 0.3 % Immature Granulocyte # (Auto) 0.04 0.00-0.02 K/uL Prothrombin Time 24.5 9.0-12.0 SECONDS Prothromb Time International Ratio 2.2 0.9-1.1 Activated Partial Thromboplast Time 35.8 21.0-31.0 SECONDS Partial Thromboplastin Ratio 1.4 Sodium Level 137 136-145 mmol/L Potassium Level 4.0 3.5-5.1 mmol/L Chloride Level 103 98-107 mmol/L Carbon Dioxide Level 28 21-32 mmol/L Anion Gap 6.0 3-11 mmol/L Blood Urea Nitrogen 18 7-18 mg/dl Creatinine 0.78 0.60-1.20 mg/dl Est Creatinine Clear Calc Drug Dose 53.5 ml/min Estimated GFR () 82.6 Estimated GFR (Non- 71.3 BUN/Creatinine Ratio 23.1 10-20 Random Glucose 137 70-99 mg/dl Calcium Level 8.9 8.5-10.1 mg/dl Magnesium Level 2.1 1.8-2.4 mg/dl Total Creatine Kinase 68 26-192 U/L Impression Assessment and Plan Pt is a 80 yo female who sustained a mechanical fall with L1 compression fracture Mechanical fall with L1 compression fracture, will place on obs medical floor at this time Pain controlled with morphine 2 mg IV q 3 hrs PRN pain in addition to lidoderm patch PT/OT consulted Dispo to [facility] once bed available Leukocytosis likely reactive in nature, cont to monitor Recent right intertrochanteric hip fracture s/p repair Chronic Diastolic CHF, cont bumex at this time A fib rate controlled on digoxin and metoprolol Cont coumadin, INR therapeutic HTN, stable at this time, cont BB Parkinsonism, cont sinemet SLE, stable, continue home meds Full code
[2017-06-20] MEDS ORDERED: IV FLUIDS COMPLETED PRN (14:45)
[2017-06-20 15:57] VITALS: BP 129/77; PULSE 74; TEMP 36.8; O2SAT 90
[2017-06-20] MEDS ORDERED: WARFARIN SOD 1 MG TAB PO SCH (16:00)
[2017-06-20 16:50] VITALS: BP 127/66; PULSE 76
[2017-06-20] MEDS: FERROUS GLUCONATE 324 MG TAB PO SCH (16:51)
[2017-06-20] MEDS: CARBIDOPA/LEVODOPA 25/100MG TAB PO SCH ×2 (16:52→20:55)
[2017-06-20] MEDS: DIGOXIN 0.125 MG TAB PO SCH (16:54)
[2017-06-20 19:19] VITALS: BP 127/77; PULSE 89; TEMP 36.8; O2SAT 96
[2017-06-20 20:00] VITALS: O2SAT 96
[2017-06-20] MEDS: TRAMADOL HCL 50 MG TAB PO PRN (20:54)
[2017-06-20] MEDS: DOCUSATE SODIUM 100 MG CAP PO SCH (20:55)
[2017-06-20] MEDS: METOPROLOL SUCC 25MG EXT REL TAB PO SCH (20:55)
[2017-06-20] MEDS: RANITIDINE HCL 150 MG TAB PO SCH (20:56)
[2017-06-21] VITALS (9 sets, daily range): BP systolic 126–151; BP diastolic 75–86; PULSE 54–95; TEMP 36.6–36.8; O2SAT 88–96
[2017-06-21] MEDS: TRAMADOL HCL 50 MG TAB PO PRN ×2 (03:51→23:35)
[2017-06-21 06:10] LABS: BASO % 0.2 %; BASO ABS # 0.02 K/uL (0-0.2); COMPLETE YES; HEMATOCRIT 46.8 % (37-47); IG% 0.5 %; LYMPH % 10.3 %; LYMPH ABS # 1.25 K/uL (1.2-3.4); MEAN CELL VOLUME 100.9 fL (80-100); MEAN CORPUSCULAR HEMOGLOBIN 33.6 pg (25-34); MEAN CORPUSCULAR HGB CONC 33.3 g/dl (32-36); MEAN PLATELET VOLUME 11.8 fL (7.4-10.4); PLATELET COUNT 201 K/uL (130-400); RED BLOOD COUNT 4.64 M/uL (4.2-5.4); WHITE BLOOD COUNT 12.13 K/uL (4.8-10.8)
[2017-06-21 06:23] LABS: INR 2.3 (0.9-1.1); PROTHROMBIN TIME (PATIENT) 25.1 SECONDS (9.0-12.0)
[2017-06-21] MEDS: POTASSIUM CHLORIDE 10 MEQ TABCR PO SCH (07:55)
[2017-06-21] MEDS: FERROUS GLUCONATE 324 MG TAB PO SCH ×2 (07:55→16:35)
[2017-06-21] MEDS: DOCUSATE SODIUM 100 MG CAP PO SCH ×2 (07:55→20:55)
[2017-06-21] MEDS: BUMETANIDE 1 MG TAB PO SCH (07:55)
[2017-06-21] MEDS: ASPIRIN 81 MG ECTAB PO SCH (07:55)
[2017-06-21] MEDS: RANITIDINE HCL 150 MG TAB PO SCH ×2 (07:55→20:55)
[2017-06-21] MEDS: LIDODERM (LIDOCAINE) PATCH 5% TD SCH (09:46)
[2017-06-21] MEDS: CARBIDOPA/LEVODOPA 25/100MG TAB PO SCH ×4 (09:46→20:55)
--- NOTE | 2017-06-21 12:09 | DIAGNOSTIC IMAGING REPORT ---
SINGLE VIEW CHEST CLINICAL HISTORY: Hypoxia. Fall. FINDINGS: An AP, portable, upright chest radiograph is compared to study dated 10/21/2016 and correlated with chest CT dated 10/19/2014. The examination is degraded by portable technique, motion artifact, and patient rotation. The heart is enlarged and there is atherosclerotic calcification of the thoracic ureter. There is pulmonary vascular congestion. Chronic interstitial thickening is similar to previous, as is elevation of the right hemidiaphragm. Trace pleural effusions are suspected. Airspace opacities are again suspected at the left lung base. No pneumothorax is identified. The skeletal structures are osteopenic. Degenerative change and scoliosis is noted in the thoracic spine. Cholecystectomy clips are seen in the right upper quadrant. IMPRESSION: 1. Cardiomegaly with pulmonary vascular congestion. 2. Suspect trace pleural effusions. 3. Airspace opacities are suggested at the left lung base and may represent atelectasis. Clinical correlation will be required. Electronically signed by: Andry Dutta M.D. 06/21/2017 12:07 PM Dictated Date/Time: 06/21/2017 12:06 PM
--- NOTE | 2017-06-21 12:16 | Hospitalist Progress Note ---
Hospitalist Progress Note Date of Service Jun 21, 2017. (Raissa Miller CRNP) Subjective Pt evaluation today including: conversation w/ patient, conversation w/ family , physical exam, chart review, lab review, review of studies, review of inpatient medication list Voiding: incontinence Ms. Maxwell has pain in her back that gets as high as 8/10 with some relief with ultram and morphine. She is somewhat short of breath when talking, sats 90 % while conversing with me. She had chest pain earlier but it has resolved. Respiratory: + see HPI Cardiovascular: + see HPI Abdomen: No pain, No nausea, No vomiting Musculoskeletal: + see HPI (Raissa Miller CRNP) Objective Vital Signs Date Time Temp Pulse Resp B/P (MAP) Pulse Ox O2 Delivery O2 Flow Rate FiO2 06/21/17 11:25 36.6 95 20 128/80 (96) 96 06/21/17 08:00 Nasal Cannula 2.0 06/21/17 07:19 36.8 54 20 126/78 (94) 94 06/21/17 04:08 36.8 69 18 136/86 (103) 92 Nasal Cannula 2.0 06/21/17 04:00 95 Oxymask 2.0 06/21/17 00:18 94 Oxymask 2.0 06/21/17 00:04 36.6 81 20 151/75 (100) 88 Room Air 06/21/17 00:00 95 Oxymask 2.0 06/20/17 20:00 96 Room Air 06/20/17 19:19 36.8 89 20 127/77 (94) 96 Room Air 06/20/17 16:54 74 06/20/17 16:50 76 127/66 (86) 06/20/17 16:00 Room Air 06/20/17 15:57 36.8 74 18 129/77 (94) 90 Room Air 06/20/17 15:05 62 18 146/86 95 06/20/17 14:24 93 Room Air 06/20/17 12:38 75 18 147/77 93 Room Air (Raissa Miller CRNP) Physical Exam General Appearance: WD/WN, no apparent distress Eyes: normal inspection Respiratory/Chest: chest non-tender, lungs clear, normal breath sounds, no respiratory distress, no accessory muscle use, + decreased breath sounds (right base) Cardiovascular: regular rate, rhythm, no edema, no gallop, no murmur Abdomen: normal bowel sounds, non tender, soft Extremities: + pertinent finding (very weak lower extremities bilaterally) Neurologic/Psychiatric: alert, oriented x 3 Skin: normal color, warm/dry (Raissa Miller, MARY JANE) Laboratory Results 06/21/17 05:40 Red Blood Count 4.64, Mean Corpuscular Volume 100.9, Mean Corpuscular Hemoglobin 33.6, Mean Corpuscular Hemoglobin Concent 33.3, Mean Platelet Volume 11.8, Neutrophils (%) (Auto) 79.0, Lymphocytes (%) (Auto) 10.3, Monocytes (%) ( Auto) 9.0, Eosinophils (%) (Auto) 1.0, Basophils (%) (Auto) 0.2, Neutrophils # ( Auto) 9.59, Lymphocytes # (Auto) 1.25, Monocytes # (Auto) 1.09, Eosinophils # ( Auto) 0.12, Basophils # (Auto) 0.02 06/20/17 06:30 Test 06/20/17 06:30 06/21/17 05:40 Activated Partial Thromboplast Time 35.8 SECONDS (21.0-31.0) Partial Thromboplastin Ratio 1.4 Anion Gap 6.0 mmol/L (3-11) Est Creatinine Clear Calc Drug Dose 53.5 ml/min Estimated GFR () 82.6 Estimated GFR (Non- 71.3 BUN/Creatinine Ratio 23.1 (10-20) Calcium Level 8.9 mg/dl (8.5-10.1) Magnesium Level 2.1 mg/dl (1.8-2.4) Total Creatine Kinase 68 U/L (26-192) White Blood Count 12.13 K/uL (4.8-10.8) Red Blood Count 4.64 M/uL (4.2-5.4) Hemoglobin 15.6 g/dL (12.0-16.0) Hematocrit 46.8 % (37-47) Mean Corpuscular Volume 100.9 fL (80-100) Mean Corpuscular Hemoglobin 33.6 pg (25-34) Mean Corpuscular Hemoglobin Concent 33.3 g/dl (32-36) Platelet Count 201 K/uL (130-400) Mean Platelet Volume 11.8 fL (7.4-10.4) Neutrophils (%) (Auto) 79.0 % Lymphocytes (%) (Auto) 10.3 % Monocytes (%) (Auto) 9.0 % Eosinophils (%) (Auto) 1.0 % Basophils (%) (Auto) 0.2 % Neutrophils # (Auto) 9.59 K/uL (1.4-6.5) Lymphocytes # (Auto) 1.25 K/uL (1.2-3.4) Monocytes # (Auto) 1.09 K/uL (0.11-0.59) Eosinophils # (Auto) 0.12 K/uL (0-0.5) Basophils # (Auto) 0.02 K/uL (0-0.2) RDW Standard Deviation 47.5 fL (36.4-46.3) RDW Coefficient of Variation 13.0 % (11.5-14.5) Immature Granulocyte % (Auto) 0.5 % Immature Granulocyte # (Auto) 0.06 K/uL (0.00-0.02) Prothrombin Time 25.1 SECONDS (9.0-12.0) Prothromb Time International Ratio 2.3 (0.9-1.1) Last 24 Hours Test 06/21/17 05:40 White Blood Count 12.13 K/uL Red Blood Count 4.64 M/uL Hemoglobin 15.6 g/dL Hematocrit 46.8 % Mean Corpuscular Volume 100.9 fL Mean Corpuscular Hemoglobin 33.6 pg Mean Corpuscular Hemoglobin Concent 33.3 g/dl Platelet Count 201 K/uL Mean Platelet Volume 11.8 fL Neutrophils (%) (Auto) 79.0 % Lymphocytes (%) (Auto) 10.3 % Monocytes (%) (Auto) 9.0 % Eosinophils (%) (Auto) 1.0 % Basophils (%) (Auto) 0.2 % Neutrophils # (Auto) 9.59 K/uL Lymphocytes # (Auto) 1.25 K/uL Monocytes # (Auto) 1.09 K/uL Eosinophils # (Auto) 0.12 K/uL Basophils # (Auto) 0.02 K/uL RDW Standard Deviation 47.5 fL RDW Coefficient of Variation 13.0 % Immature Granulocyte % (Auto) 0.5 % Immature Granulocyte # (Auto) 0.06 K/uL Prothrombin Time 25.1 SECONDS Prothromb Time International Ratio 2.3 (Raissa Miller CRNP) Assessment and Plan [age] old woman with L1 compression fracture and acute respiratory failure due to fluid overload. Lumbar fracture - pain is not adequately controlled with ultram and morphine, start celebrex and tid tylenol. PT to evaluate Fluid overload/pulmonary congestion - 1 mg IV bumex, Sosa catheter, titrate supplementary oxygen as needed. Following diuresis she is sleeping comfortably, Sosa bag has about 400 ml since Bumex given, oxygen sats are mid 90s on room air. Parkinsons - continue Sinemet, PT To D/C to [facility] when ready. DVT prophylaxis SCDs Code status - full resuscitation (Raissa Miller CRNP) ABSTRACT SEARCHER Physician Supervision Note: I interviewed and examined the patient. Discussed with Elena Miller ABSTRACT SEARCHER and agree with findings and plan as documented in the note. Any exceptions or clarifications are listed here: None This patient was admitted after a fall and lumbar 1 compression fracture, she has pain in her back, she has a history of chronic diastolic heart failure was noted to be hypoxic with an evidence of heart failure seen on chest x-ray she is anticipating transfer eventually to rehabilitation Vital signs are stable exception of hypoxia with minor exertion at room air she' s 91% sign cardiac exam is regular Lung exam is bibasilar crackles left greater than right Acute on chronic diastolic heart failure with history of atrial fibrillation plan the patient maintain her atrial fibrillation medications she is given 1 dose of Bumex for the attempts diuresis following her renal function For her lumbar fracture will continue medical management with pain control and physical outpatient therapy with eventual referral Regarding her Parkinson's disease this seems to be stable we will continue her Sinemet, likewise her lupus seems to be stable Documented By: Holger Joiner (Holger Joiner M.D.)
[2017-06-21] MEDS ORDERED: BUMETANIDE IV 1 MG in SYRINGE 0 ML IV ONE (13:45)
[2017-06-21] MEDS: ACETAMINOPHEN 500 MG TAB PO SCH ×2 (14:09→20:55)
[2017-06-21] MEDS ORDERED: WARFARIN SOD 2 MG TAB PO SCH (16:00)
[2017-06-21] MEDS: DIGOXIN 0.125 MG TAB PO SCH (16:35)
[2017-06-21] MEDS: METOPROLOL SUCC 25MG EXT REL TAB PO SCH (20:55)
[2017-06-21] MEDS: CeleBREX 100 MG CAP PO SCH (20:56)
[2017-06-22] VITALS: BP 173/79; PULSE 78; TEMP 36.7; O2SAT 93
[2017-06-22 04:00] VITALS: BP 169/93; PULSE 57; TEMP 36.6; O2SAT 93
--- NOTE | 2017-06-22 05:54 | Clinical Documentation Query ---
CLINICAL DOCUMENTATION QUERY 81 year old female who presents to the Emergency Room with complaints of a fall with subsequent low back pain. CT imaging of pelvis showed osteopenia. L1 Compression fracture by lumbar CT. In your clinical opinion is this patient being managed for: ( ) L1 compression fracture in setting of osteoporosis in elderly female ( ) Not Agree ( ) Other explanation of clinical findings (Please Explain) ( ) Unable to determine (Please Define) ( ) Need to Discuss The medical record reflects the following clinical findings, treatment, and risk factors. Clinical Indicators: As above. Treatment: CT imaging, LSO brace, PT/OT, SS consult for rehab placement Risk Factors: Age, sex, vertebral fracture in ground level fall. Please clarify and document your clinical opinion in the progress notes and discharge summary. Terms such as "probable", "suspected", "likely", "questionable", "possible", or "still to be ruled out" are acceptable. IF IN AGREEMENT, YOU MUST DOCUMENT ABOVE DIAGNOSTIC STATEMENT IN DAILY PROGRESS NOTES AND DISCHARGE SUMMARY. This document is not part of the patient's record. Thank You, Blake Benitez, RICHA [phone]
[2017-06-22 06:23] LABS: BASO % 0.1 %; BASO ABS # 0.01 K/uL (0-0.2); COMPLETE YES; EOS % 1.9 %; IG% 0.3 %; LYMPH % 11.1 %; LYMPH ABS # 1.06 K/uL (1.2-3.4); MEAN CELL VOLUME 98.9 fL (80-100); MEAN CORPUSCULAR HEMOGLOBIN 33.7 pg (25-34); MEAN CORPUSCULAR HGB CONC 34.1 g/dl (32-36); MEAN PLATELET VOLUME 11.8 fL (7.4-10.4); MONO % 10.8 %; NEUT % 75.8 %; PLATELET COUNT 178 K/uL (130-400); RED BLOOD COUNT 4.45 M/uL (4.2-5.4); WHITE BLOOD COUNT 9.52 K/uL (4.8-10.8)
[2017-06-22 06:24] LABS: INR 2.1 (0.9-1.1)
[2017-06-22 07:17] VITALS: BP 172/82; PULSE 77; TEMP 36.3; O2SAT 92
[2017-06-22] MEDS: LIDODERM (LIDOCAINE) PATCH 5% TD SCH (07:33)
[2017-06-22] MEDS: BUMETANIDE 1 MG TAB PO SCH (07:33)
[2017-06-22] MEDS: RANITIDINE HCL 150 MG TAB PO SCH (07:33)
[2017-06-22] MEDS: ACETAMINOPHEN 500 MG TAB PO SCH (07:33)
[2017-06-22] MEDS: DOCUSATE SODIUM 100 MG CAP PO SCH (07:34)
[2017-06-22] MEDS: ASPIRIN 81 MG ECTAB PO SCH (07:34)
[2017-06-22] MEDS: POTASSIUM CHLORIDE 10 MEQ TABCR PO SCH (07:34)
[2017-06-22] MEDS: FERROUS GLUCONATE 324 MG TAB PO SCH (07:34)
[2017-06-22] MEDS: TRAMADOL HCL 50 MG TAB PO PRN (07:34)
[2017-06-22] MEDS: CARBIDOPA/LEVODOPA 25/100MG TAB PO SCH (07:34)
[2017-06-22] MEDS: CeleBREX 100 MG CAP PO SCH (07:35)
[2017-06-22 08:21] LABS: BUN/CREATININE RATIO 30.6 (10-20); CALCIUM 8.8 mg/dl (8.5-10.1); CREATININE 0.84 mg/dl (0.60-1.20); MAGNESIUM 1.9 mg/dl (1.8-2.4); POTASSIUM 3.7 mmol/L (3.5-5.1)
--- NOTE | 2017-06-22 08:32 | Hospitalist Progress Note ---
Hospitalist Progress Note Date of Service Jun 22, 2017. Subjective Pt evaluation today including: conversation w/ patient, physical exam, chart review, lab review, conversation w/ business analysis consultant Voiding: carter catheter in place Ms. Maxwell is breathing easier today, coughing some with little sputum, no oxygen needed today. She is experiencing pain at about 5/10 that is somewhat relieved by her medications. Respiratory: + cough, No shortness of breath Cardiovascular: No chest pain, No edema Abdomen: No pain, No nausea, No vomiting, No diarrhea All Other Systems: Reviewed and Negative Medications Medications (Trade) Dose Ordered Sig/Christine Route Start Time Stop Time Status Last Admin Dose Admin Warfarin Sodium (Coumadin Tab) 2 mg [id number]@1600 PO 06/21/17 16:00 06/22/17 12:43 DC 06/21/17 16:35 2 MG Celecoxib (CeleBREX CAP) 100 mg BID PO 06/21/17 21:00 06/22/17 12:43 DC 06/22/17 07:35 100 MG Objective Vital Signs Date Time Temp Pulse Resp B/P (MAP) Pulse Ox O2 Delivery O2 Flow Rate FiO2 06/22/17 07:17 36.3 77 20 172/82 (112) 92 06/22/17 04:00 36.6 57 18 169/93 (118) 93 Oxymask 2.0 06/22/17 04:00 93 Room Air 2.0 Oxymask 06/22/17 00:00 36.7 78 18 173/79 (110) 93 Room Air 06/22/17 00:00 93 Room Air 2.0 Oxymask 06/21/17 20:59 36.7 79 18 146/83 (104) 93 Room Air 06/21/17 20:00 Room Air 06/21/17 16:35 82 06/21/17 16:00 Room Air 06/21/17 15:46 36.6 78 18 129/78 (95) 94 Room Air 06/21/17 12:00 Nasal Cannula 2.0 06/21/17 11:25 36.6 95 20 128/80 (96) 96 Physical Exam Notes: General: no distress Eyes: normal inspection, PERLL Respiratory: chest non tender, clear to auscultation, normal breath sounds, no respiratory distress, no accessory muscle use Cardiac: regular rate and rhythm, no rub or gallop, no murmur, no edema, no jvd GI/: active bowel sounds, no abd pain or tenderness, soft, non distended Extremities: weak strength bilaterally, stronger in arms than legs, limited range of motion, painful back Neuro/Psych: alert and oriented x 3, normal mood and affect Skin: normal color, dry Laboratory Results Last 24 Hours Test 06/22/17 05:59 White Blood Count 9.52 K/uL Red Blood Count 4.45 M/uL Hemoglobin 15.0 g/dL Hematocrit 44.0 % Mean Corpuscular Volume 98.9 fL Mean Corpuscular Hemoglobin 33.7 pg Mean Corpuscular Hemoglobin Concent 34.1 g/dl Platelet Count 178 K/uL Mean Platelet Volume 11.8 fL Neutrophils (%) (Auto) 75.8 % Lymphocytes (%) (Auto) 11.1 % Monocytes (%) (Auto) 10.8 % Eosinophils (%) (Auto) 1.9 % Basophils (%) (Auto) 0.1 % Neutrophils # (Auto) 7.21 K/uL Lymphocytes # (Auto) 1.06 K/uL Monocytes # (Auto) 1.03 K/uL Eosinophils # (Auto) 0.18 K/uL Basophils # (Auto) 0.01 K/uL RDW Standard Deviation 46.2 fL RDW Coefficient of Variation 12.8 % Immature Granulocyte % (Auto) 0.3 % Immature Granulocyte # (Auto) 0.03 K/uL Prothrombin Time 23.0 SECONDS Prothromb Time International Ratio 2.1 Sodium Level 134 mmol/L Potassium Level 3.7 mmol/L Chloride Level 100 mmol/L Carbon Dioxide Level 29 mmol/L Anion Gap 5.0 mmol/L Blood Urea Nitrogen 26 mg/dl Creatinine 0.84 mg/dl Est Creatinine Clear Calc Drug Dose 49.5 ml/min Estimated GFR () 75.5 Estimated GFR (Non- 65.2 BUN/Creatinine Ratio 30.6 Random Glucose 121 mg/dl Calcium Level 8.8 mg/dl Magnesium Level 1.9 mg/dl Assessment and Plan [age] old woman with L1 compression fracture and acute respiratory failure due to fluid overload. L1 compression fracture in the setting of osteoporosis in elderly female - pain is somewhat better controlled with ultram and morphine, start celebrex and tid tylenol, continue PT Acute on chronic systolic heart failure - Feeling better after 1 mg IV Bumex yesterday, Carter catheter, oxygen sats are mid 90s on room air. Chronic atrial fibrillation - INR is being monitored and has been therapeutic throughout this hospital stay, heart rate is controlled. Continue warfarin and metoprolol. Parkinsons - able to communicate and follow commands, moves extremities though weak. Continue Sinemet, PT To D/C to [facility] today DVT prophylaxis SCDs Code status - full resuscitation
[2017-06-22] MEDS ORDERED: LDDP5 TD (10:45)
[2017-06-22] MEDS ORDERED: CLB100 PO (10:45)
[2017-06-22] MEDS ORDERED: ACET-24 PO (10:45)
[2017-06-22] MEDS ORDERED: TRAM-10 PO (10:45)
--- NOTE | 2017-06-22 10:49 | Discharge Instructions ---
Discharge Instructions Date of Service Jun 22, 2017. Admission Reason for Admission: Fall, Lumbar Compression Fracture Discharge Discharge Diagnosis / Problem: first lumbar vertebrae compression fracture Discharge Goals Goal(s): Diagnostic testing, Therapeutic intervention Activity Recommendations Activity Level: Assistance Required Therapies: Physical Therapy, Occupational Therapy PT with lumbar compression fracture and mechanical non radicular back pain, did have transient acute on chronic diastolic heart failure resolved with one additional dose of IV bumex, doing well moving to rehab . Additional Information Patient informed of condition: Yes Advance Directives: Yes DNR: No Level of Care: Acute Rehab Communicable Disease: No Prognosis: Stable Sosa Catheter: No Current Hospital Diet Patient's current hospital diet: Regular Diet Discharge Diet Recommended Diet: Regular Diet Pending Studies Studies pending at discharge: no Medical Emergencies . Who to Call and When: Medical Emergencies: If at any time you feel your situation is an emergency, please call 911 immediately. . Non-Emergent Contact Non-Emergency issues call your: Primary Care Provider Call Non-Emergent contact if: temperature is above 101, your pain is unusual for you . . "Provider Documentation" section prepared by Holger Joiner. . Core Measure Problem Core Measures: None
[2017-06-22 11:07] VITALS: BP 146/77; PULSE 79; TEMP 36.4; O2SAT 94
--- NOTE | 2017-06-22 17:33 | Discharge Summary ---
Discharge Summary Date of Service Jun 22, 2017. Discharge Summary Admission Date: Jun 21, 2017 at 13:28 Discharge Date: Jun 22, 2017 Discharge Disposition: Rehab Principal Diagnosis: L1 compression fracture, acute on diastolic hf Immunizations: Have You Had Influenza Vaccine: Yes History of Tetanus Vaccine?: UTD History of Pneumococcal: Yes History of Hepatitis B Vaccine: No Medication Reconciliation New Medications: Acetaminophen (Sb Non-Aspirin Extra Stre) 500 Mg Tab 1000 MG PO TID, #90 TAB Celecoxib (Celebrex) 100 Mg Cap 100 MG PO BID, #60 CAP Lidocaine (Lidocaine) 1 Patch Tdsy 1 PATCH TD QAM, #10 PATCH Continued Medications: Acetaminophen Tab (Tylenol) 325 Mg Tab 650 MG PO Q4 PRN for Pain, TAB Aspirin (Aspirin Ec) 81 Mg Tab 162 MG PO QAM Bumetanide (Bumex) 0.5 Mg Tab 0.5 MG PO QAM Carbidopa/Levodopa (Sinemet 25MG/100MG) Tab 1 TAB PO QID, 0 Refills Digoxin (Digoxin) 0.125 Mg Tab 0.125 MG PO DAILY Docusate Sodium (Docusate Sodium) 100 Mg Cap 100 MG PO BID for 7 Days, #14 CAP Ferrous Gluconate (Ferrous Gluconate) 324 Mg Tab 324 MG PO BIDM, TAB Metoprolol Succinate (Toprol Xl) 25 Mg Tab 25 MG PO HS, TAB Nitroglycerin (Nitrostat) 0.4 Mg Tab 0.4 MG UT PRN, BTL Polyethylene Glycol 3350 (Miralax) 1 Pow Pow 17 GM PO DAILY PRN for Constipation, #527 GM Potassium Chloride (Micro-K Ext Rel) 10 Meq Capcr 10 MEQ PO QAM, CAP Ranitidine (Zantac) 150 Mg Tab 150 MG PO BID, TAB Tramadol (Ultram) 50 Mg Tab 50 MG PO Q6H PRN for Pain, #60 TAB (This prescription has been renewed) Warfarin Sodium (Coumadin) 2 Mg Tab 2 MG PO 6XWK, TAB TAKES EVERY DAY EXCEPT TUESDAYS. Warfarin Sodium (Coumadin) 2 Mg Tab 1 MG PO ONLY ON TUESDAYS, TAB Discharge Exam Review of Systems: Constitutional: No fever, No chills, No sweats Cardiovascular: No chest pain, No orthopnea, No edema Physical Exam: General Appearance: WD/WN, + mild distress (back pain with movement) Respiratory/Chest: chest non-tender, lungs clear, normal breath sounds Cardiovascular: regular rate, rhythm, no murmur Hospital Course [age] old woman with L1 compression fracture and acute respiratory failure due to acute on chronic diastolic heart failure L1 compression fracture in the setting of osteoporosis in elderly female - pain is somewhat better controlled with ultram and morphine, start celebrex and tid tylenol, Acute on chronic systolic heart failure - oral bumex, Sosa catheter Chronic atrial fibrillation - INR is being monitored and has been therapeutic throughout this hospital stay, heart rate is controlled. Continue warfarin and metoprolol. Parkinsons - able to communicate and follow commands, moves extremities though weak. Continue Sinemet, PT Documented By: Holger Joiner Total Time Spent: Greater than 30 minutes This includes examination of the patient, discharge planning, medication reconciliation, and communication with other providers. Discharge Instructions Please refer to the electronic Patient Visit Report (Discharge Instructions) for additional information.
== END 2017-06-22 12:35 | DRG 542 ==
LOC: EDBD 05:15 → C.EDA 05:16 → C.MED 14:12 → ENRESERV 14:29 → OBSVTOIN 06-21 13:28
PROVIDERS: ADMIT Hospitalist; ATTEND Internal Medicine
DX: M80.08XA Age-related osteoporosis with current pathological fracture, vertebra(e), initial encounter for fracture (principal); I50.33 Acute on chronic diastolic (congestive) heart failure; J96.01 Acute respiratory failure with hypoxia; W01.0XXA Fall on same level from slipping, tripping and stumbling without subsequent striking against object, initial encounter; Y92.009 Unspecified place in unspecified non-institutional (private) residence as the place of occurrence of the external cause; D72.829 Elevated white blood cell count, unspecified; I11.0 Hypertensive heart disease with heart failure; M32.9 Systemic lupus erythematosus, unspecified; I48.2 Chronic atrial fibrillation; G20 Parkinson's disease; Z79.01 Long term (current) use of anticoagulants; Z79.82 Long term (current) use of aspirin; Z79.891 Long term (current) use of opiate analgesic; Z79.899 Other long term (current) drug therapy; D68.59 Other primary thrombophilia

== ENCOUNTER → 2017-07-10 | Outpatient (CLI) | payer OTHER, MEDICARE ==
[~2017-07-10] MED LIST changes: +ACET-24 PO; -AMB5 PO; +CLB100 PO; -DLCS PR; +DOCU100C31 PO; +FERR325T18 PO; -FRRG PO; +LDDP5 TD; -MOMLX PO; -MRLP17X PO; -NYST1POW7; -OXYC-57 PO; -PANT40TA PO; +POLY335019 PO; +POTA10CA28 PO; +TRAM-10 PO; +ZNTT/150 PO
[2017-07-10 08:38] LABS: HEMATOCRIT 43.3 % (37-47); MEAN CORPUSCULAR HEMOGLOBIN 33.3 pg (25-34); MEAN CORPUSCULAR HGB CONC 33.3 g/dl (32-36); MEAN PLATELET VOLUME 12.1 fL (7.4-10.4); PLATELET COUNT 306 K/uL (130-400); RED BLOOD COUNT 4.33 M/uL (4.2-5.4); WHITE BLOOD COUNT 8.48 K/uL (4.8-10.8)
[2017-07-10 08:45] LABS: PROTHROMBIN TIME (PATIENT) 21.6 SECONDS (9.0-12.0)
[2017-07-10 08:56] LABS: ALT/SGPT 32 U/L (12-78); AST/SGOT 53 U/L (15-37); BLOOD UREA NITROGEN 15 mg/dl (7-18); BUN/CREATININE RATIO 21.7 (10-20); CARBON DIOXIDE 27 mmol/L (21-32); CHLORIDE 100 mmol/L (98-107); GLUCOSE 118 mg/dl (70-99); POTASSIUM 3.6 mmol/L (3.5-5.1); SODIUM 135 mmol/L (136-145)
[2017-07-10 08:57] LABS: ALB/GLOB RATIO 0.6 (0.9-2); ALKALINE PHOSPHATASE 233 U/L (45-117)
== END | disposition home or self-care (01) ==
LOC: C.LABUPNIT 07:51
PROVIDERS: ATTEND Nurse Practitioner Family
DX: L93.0 Discoid lupus erythematosus (principal); I50.32 Chronic diastolic (congestive) heart failure; Z51.81 Encounter for therapeutic drug level monitoring; Z79.899 Other long term (current) drug therapy

== ENCOUNTER → 2017-07-14 | Outpatient (CLI) | payer OTHER, MEDICARE ==
[2017-07-14 08:51] LABS: INR 2.1 (0.9-1.1); PROTHROMBIN TIME (PATIENT) 23.2 SECONDS (9.0-12.0)
== END ==
LOC: C.LABUPNIT 08:25
PROVIDERS: ATTEND Nurse Practitioner Family
DX: I50.32 Chronic diastolic (congestive) heart failure (principal)

== ENCOUNTER → 2017-07-15 | Outpatient (CLI) | payer OTHER, MEDICARE ==
[2017-07-15 07:04] LABS: URINE APPEARANCE CLOUDY (CLEAR); URINE BILIRUBIN NEG (NEG); URINE COLOR DK YELLOW; URINE EPITHELIAL CELL AUTO 0-5 /lpf (0-5); URINE NITRITE POS (NEG); URINE PH 6.5 (4.5-7.5); URINE SPECIFIC GRAVITY 1.021 (1.000-1.030); UROBILINOGEN NEG (NEG)
[2017-07-15 07:21] LABS: MANUAL MICROSCOPIC REQUIRED? NO; REVIEW REQ? NO
== END ==
LOC: C.LABUPNIT 12:11
PROVIDERS: ATTEND Nurse Practitioner Family
DX: R26.9 Unspecified abnormalities of gait and mobility (principal)

== ENCOUNTER → 2017-08-30 | Outpatient (CLI) | payer OTHER, MEDICARE ==
[~2017-08-30] MED LIST changes: +METO-478 PO; -METO1TAB31 PO
[2017-08-30 08:33] LABS: INR 2.8 (0.9-1.1); PROTHROMBIN TIME (PATIENT) 31.4 SECONDS (9.0-12.0)
== END ==
LOC: C.LABUPNIT 08:02
PROVIDERS: ATTEND Nurse Practitioner Family
DX: I50.32 Chronic diastolic (congestive) heart failure (principal)

== ENCOUNTER → 2017-09-01 | Outpatient (CLI) | payer OTHER, MEDICARE ==
[2017-09-02 01:44] LABS: URINE APPEARANCE CLEAR (CLEAR); URINE BILIRUBIN NEG (NEG); URINE COLOR YELLOW; URINE NITRITE NEG (NEG); URINE PH 5.5 (4.5-7.5); URINE SPECIFIC GRAVITY 1.016 (1.000-1.030); UROBILINOGEN NEG (NEG); ZZURINE CULT IF INDIC CATH YES
[2017-09-02 02:14] LABS: MANUAL MICROSCOPIC REQUIRED? NO; REVIEW REQ? NO
== END ==
LOC: C.LABUPNIT 14:00
PROVIDERS: ATTEND Nurse Practitioner Family
DX: N39.0 Urinary tract infection, site not specified (principal)

== ENCOUNTER → 2017-09-06 | Outpatient (CLI) | payer OTHER, MEDICARE ==
[2017-09-06 09:14] LABS: INR 3.3 (0.9-1.1); PROTHROMBIN TIME (PATIENT) 33.9 SECONDS (9.0-12.0)
== END | disposition home or self-care (01) ==
LOC: C.LABUPNIT 08:44
PROVIDERS: ATTEND Nurse Practitioner Family
DX: I48.0 Paroxysmal atrial fibrillation (principal)

== ENCOUNTER → 2017-09-22 | Outpatient (CLI) | payer OTHER, MEDICARE ==
[2017-09-22 08:12] LABS: BLOOD UREA NITROGEN 27 mg/dl (7-18); BUN/CREATININE RATIO 28.1 (10-20); CALCIUM 8.7 mg/dl (8.5-10.1); CARBON DIOXIDE 26 mmol/L (21-32); CHLORIDE 103 mmol/L (98-107); CREATININE 0.96 mg/dl (0.60-1.20); GLUCOSE 101 mg/dl (70-99); POTASSIUM 4.5 mmol/L (3.5-5.1); SODIUM 135 mmol/L (136-145)
== END ==
LOC: C.LABUPNIT 07:55
PROVIDERS: ATTEND Nurse Practitioner Family
DX: M62.81 Muscle weakness (generalized) (principal)

== ENCOUNTER → 2017-11-21 | Outpatient (CLI) | payer OTHER, MEDICARE ==
[~2017-11-21] MED LIST changes: +ACET-1693 PO; -ACET325T96 PO; +RANI150T85 PO; -ZNTT/150 PO
[2017-11-21 09:50] LABS: BASO % 0.7 %; BASO ABS # 0.04 K/uL (0-0.2); EOS % 4.6 %; EOS ABS # 0.27 K/uL (0-0.5); HEMATOCRIT 41.6 % (37-47); HEMOGLOBIN 13.9 g/dL (12.0-16.0); IG# 0.03 K/uL (0.00-0.02); LYMPH ABS # 1.12 K/uL (1.2-3.4); MEAN CELL VOLUME 100.5 fL (80-100); MEAN CORPUSCULAR HEMOGLOBIN 33.6 pg (25-34); MEAN CORPUSCULAR HGB CONC 33.4 g/dl (32-36); MEAN PLATELET VOLUME 13.7 fL (7.4-10.4); MONO % 12.2 %; MONO ABS # 0.72 K/uL (0.11-0.59); NEUT ABS # 3.72 K/uL (1.4-6.5); PLATELET COUNT 168 K/uL (130-400); RED CELL DISTRIBUTION WIDTH CV 12.9 % (11.5-14.5); RED CELL DISTRIBUTION WIDTH SD 47.2 fL (36.4-46.3)
[2017-11-21 10:18] LABS: ALBUMIN 2.6 gm/dl (3.4-5.0); ALT/SGPT 25 U/L (12-78); AST/SGOT 40 U/L (15-37); BLOOD UREA NITROGEN 23 mg/dl (7-18); CALCIUM 8.6 mg/dl (8.5-10.1); CARBON DIOXIDE 26 mmol/L (21-32); CREATININE 0.92 mg/dl (0.60-1.20); GLUCOSE 100 mg/dl (70-99); POTASSIUM 4.1 mmol/L (3.5-5.1); SODIUM 137 mmol/L (136-145)
[2017-11-21 10:21] LABS: ALKALINE PHOSPHATASE 128 U/L (45-117); TOTAL PROTEIN 7.4 gm/dl (6.4-8.2)
== END ==
LOC: C.LABUPNIT 08:49
PROVIDERS: ATTEND Nurse Practitioner Family
DX: R19.7 Diarrhea, unspecified (principal)

== ENCOUNTER → 2017-12-06 | Outpatient (CLI) | payer OTHER, MEDICARE ==
[2017-12-06 08:07] LABS: BASO % 0.6 %; BASO ABS # 0.04 K/uL (0-0.2); EOS % 5.1 %; EOS ABS # 0.33 K/uL (0-0.5); HEMATOCRIT 40.4 % (37-47); HEMOGLOBIN 13.6 g/dL (12.0-16.0); IG# 0.01 K/uL (0.00-0.02); LYMPH % 17.1 %; MEAN CELL VOLUME 100.7 fL (80-100); MEAN CORPUSCULAR HEMOGLOBIN 33.9 pg (25-34); MEAN CORPUSCULAR HGB CONC 33.7 g/dl (32-36); MEAN PLATELET VOLUME 13.4 fL (7.4-10.4); MONO % 11.7 %; MONO ABS # 0.75 K/uL (0.11-0.59); NEUT % 65.3 %; PLATELET COUNT 170 K/uL (130-400); RED CELL DISTRIBUTION WIDTH SD 47.7 fL (36.4-46.3); WHITE BLOOD COUNT 6.43 K/uL (4.8-10.8)
[2017-12-06 08:15] LABS: BLOOD UREA NITROGEN 19 mg/dl (7-18); CALCIUM 8.6 mg/dl (8.5-10.1); CARBON DIOXIDE 26 mmol/L (21-32); CREATININE 0.74 mg/dl (0.60-1.20); GLUCOSE 121 mg/dl (70-99); POTASSIUM 3.8 mmol/L (3.5-5.1); SODIUM 137 mmol/L (136-145)
== END | disposition home or self-care (01) ==
LOC: C.LABUPNIT 07:49
PROVIDERS: ATTEND Nurse Practitioner Family
DX: N39.0 Urinary tract infection, site not specified (principal); I50.32 Chronic diastolic (congestive) heart failure; Z87.440 Personal history of urinary (tract) infections

== ENCOUNTER → 2017-12-09 | Outpatient (CLI) | payer OTHER, MEDICARE | LOC: C.LABUPNIT 05:49 | PROVIDERS: ATTEND Nurse Practitioner Family | DX: N39.0 Urinary tract infection, site not specified (principal) ==

== ENCOUNTER → 2017-12-15 | Outpatient (CLI) | payer OTHER, MEDICARE | LOC: C.LABUPNIT 08:34 | PROVIDERS: ATTEND Nurse Practitioner Family | DX: N39.0 Urinary tract infection, site not specified (principal) ==

== ENCOUNTER → 2017-12-18 | Outpatient (CLI) | payer OTHER, MEDICARE | LOC: C.LABUPNIT 08:46 | PROVIDERS: ATTEND Nurse Practitioner Family | DX: I50.32 Chronic diastolic (congestive) heart failure (principal) ==

== ENCOUNTER → 2018-01-18 | Outpatient (CLI) | payer OTHER, MEDICARE ==
[2018-01-18 10:18] LABS: HEMATOCRIT 43.2 % (37-47); HEMOGLOBIN 14.3 g/dL (12.0-16.0); MEAN CORPUSCULAR HEMOGLOBIN 33.1 pg (25-34); MEAN CORPUSCULAR HGB CONC 33.1 g/dl (32-36); MEAN PLATELET VOLUME 12.4 fL (7.4-10.4); PLATELET COUNT 195 K/uL (130-400); RED CELL DISTRIBUTION WIDTH CV 13.8 % (11.5-14.5); RED CELL DISTRIBUTION WIDTH SD 50.6 fL (36.4-46.3); WHITE BLOOD COUNT 6.27 K/uL (4.8-10.8)
[2018-01-18 10:27] LABS: ALBUMIN 2.6 gm/dl (3.4-5.0); ALT/SGPT 18 U/L (12-78); AST/SGOT 29 U/L (15-37); BLOOD UREA NITROGEN 20 mg/dl (7-18); CALCIUM 8.7 mg/dl (8.5-10.1); CARBON DIOXIDE 27 mmol/L (21-32); CREATININE 0.97 mg/dl (0.60-1.20); GLUCOSE 86 mg/dl (70-99); POTASSIUM 4.1 mmol/L (3.5-5.1); SODIUM 137 mmol/L (136-145)
[2018-01-18 10:30] LABS: ALKALINE PHOSPHATASE 138 U/L (45-117); TOTAL PROTEIN 7.7 gm/dl (6.4-8.2)
== END ==
LOC: C.LABUPNIT 10:02
PROVIDERS: ATTEND Nurse Practitioner Family
DX: I50.32 Chronic diastolic (congestive) heart failure (principal); Z87.440 Personal history of urinary (tract) infections

== ENCOUNTER → 2018-01-19 | Outpatient (CLI) | payer OTHER, MEDICARE | LOC: C.LABUPNIT 09:09 | PROVIDERS: ATTEND Nurse Practitioner Family | DX: R19.7 Diarrhea, unspecified (principal) ==

== ENCOUNTER → 2018-02-16 | Outpatient (CLI) | payer OTHER, MEDICARE | LOC: C.LABUPNIT 12:43 | PROVIDERS: ATTEND Nurse Practitioner Family | DX: A04.72 Enterocolitis due to Clostridium difficile, not specified as recurrent (principal) ==

== ENCOUNTER → 2018-04-07 | Outpatient (CLI) | payer OTHER, MEDICARE ==
[2018-04-07 07:12] LABS: HEMATOCRIT 36.1 % (37-47); HEMOGLOBIN 12.1 g/dL (12.0-16.0)
== END ==
LOC: C.LABUPNIT 13:05
PROVIDERS: ATTEND Nurse Practitioner Family
DX: E87.1 Hypo-osmolality and hyponatremia (principal); R79.89 Other specified abnormal findings of blood chemistry; D50.9 Iron deficiency anemia, unspecified

== ENCOUNTER → 2018-04-26 | Outpatient (CLI) | payer OTHER, MEDICARE ==
[2018-04-26 10:21] LABS: HEMATOCRIT 39.2 % (37-47); HEMOGLOBIN 12.7 g/dL (12.0-16.0); MEAN CELL VOLUME 102.3 fL (80-100); MEAN CORPUSCULAR HEMOGLOBIN 33.2 pg (25-34); MEAN CORPUSCULAR HGB CONC 32.4 g/dl (32-36); MEAN PLATELET VOLUME 13.1 fL (7.4-10.4); PLATELET COUNT 167 K/uL (130-400); RED CELL DISTRIBUTION WIDTH CV 13.8 % (11.5-14.5); RED CELL DISTRIBUTION WIDTH SD 51.9 fL (36.4-46.3); WHITE BLOOD COUNT 4.84 K/uL (4.8-10.8)
[2018-04-26 10:29] LABS: ALBUMIN 2.9 gm/dl (3.4-5.0); ALKALINE PHOSPHATASE 119 U/L (45-117); ALT/SGPT 21 U/L (12-78); AST/SGOT 31 U/L (15-37); BLOOD UREA NITROGEN 18 mg/dl (7-18); CALCIUM 8.6 mg/dl (8.5-10.1); CARBON DIOXIDE 28 mmol/L (21-32); CREATININE 0.94 mg/dl (0.60-1.20); GLUCOSE 79 mg/dl (70-99); POTASSIUM 4.2 mmol/L (3.5-5.1); SODIUM 134 mmol/L (136-145); TOTAL PROTEIN 7.7 gm/dl (6.4-8.2)
== END | disposition home or self-care (01) ==
LOC: C.LABUPNIT 09:48
PROVIDERS: ATTEND Nurse Practitioner Family
DX: R19.5 Other fecal abnormalities (principal)

== ENCOUNTER → 2018-05-10 | Outpatient (CLI) | payer OTHER ==
[2018-05-10 08:14] LABS: HEMATOCRIT 36.6 % (37-47); HEMOGLOBIN 12.1 g/dL (12.0-16.0); MEAN CELL VOLUME 101.1 fL (80-100); MEAN CORPUSCULAR HEMOGLOBIN 33.4 pg (25-34); MEAN CORPUSCULAR HGB CONC 33.1 g/dl (32-36); PLATELET COUNT 156 K/uL (130-400); RED CELL DISTRIBUTION WIDTH CV 13.5 % (11.5-14.5); RED CELL DISTRIBUTION WIDTH SD 50.3 fL (36.4-46.3); WHITE BLOOD COUNT 4.68 K/uL (4.8-10.8)
== END ==
LOC: C.LABUPNIT 07:48
PROVIDERS: ATTEND Nurse Practitioner Family
DX: R68.89 Other general symptoms and signs (principal)

== ENCOUNTER → 2018-05-28 | Outpatient (CLI) | payer OTHER ==
[2018-05-28 09:54] LABS: BLOOD UREA NITROGEN 27 mg/dl (7-18); CALCIUM 8.5 mg/dl (8.5-10.1); CARBON DIOXIDE 24 mmol/L (21-32); CREATININE 1.04 mg/dl (0.60-1.20); GLUCOSE 77 mg/dl (70-99); POTASSIUM 4.3 mmol/L (3.5-5.1); SODIUM 136 mmol/L (136-145)
== END | disposition home or self-care (01) ==
LOC: C.LABUPNIT 09:17
PROVIDERS: ATTEND Nurse Practitioner Family
DX: I50.32 Chronic diastolic (congestive) heart failure (principal)